=== PATIENT | female | born 1965 | race Caucasian/White ===

== ENCOUNTER 2020-09-13 00:25 | Inpatient (IN) | payer OTHER, SELFPAY ==
[2020-09-13] VITALS (8 sets, daily range): BP systolic 104–195; BP diastolic 60–120; PULSE 64–120; RESP 16–46; TEMP -17.7–37; O2SAT 88–98; BMI 26.2; BMI 27.2
[2020-09-13] MEDS: Magnesium Sulfate/H2O 2 GM/50 ML PIGGYBACK IV (00:30)
--- NOTE | 2020-09-13 00:30 | ECG_ITS ---
Test Reason : SOB Blood Pressure : / mmHG Vent. Rate : 094 BPM Atrial Rate : 094 BPM P-R Int : 144 ms QRS Dur : 082 ms QT Int : 386 ms P-R-T Axes : 078 048 064 degrees QTc Int : 482 ms Normal sinus rhythm Low voltage QRS Nonspecific ST abnormality Abnormal ECG When compared with ECG of 05-APR-2020 23:53, T wave amplitude has decreased in Inferior leads T wave amplitude has decreased in Anterolateral leads ST now depressed in Anterolateral leads Referred By: Nelly Clifton Electronically Signed By:SAPNA HOLLEY MD
--- NOTE | 2020-09-13 00:31 | XR_ITS ---
EXAMINATION: XR CHEST CLINICAL INFORMATION: Dyspnea COMPARISON: 04/05/2020 TECHNIQUE: Frontal view of the chest was obtained. FINDINGS: Cardiac leads overlie the chest. The lungs are well expanded. Bronchial wall thickening noted. There is no focal consolidation, edema, or effusion. No pneumothorax. The cardiomediastinal silhouette is within normal limits. No acute osseous abnormality. XR/XR chest 1V IMPRESSION: No consolidation. Bronchial wall thickening can be seen with a small airways process such as asthma or atypical/viral infection.
[2020-09-13] MEDS: Ketamine HCl/NS 50 MG/5 ML SYRINGE 25 MG IVPUSH (00:40)
--- NOTE | 2020-09-13 00:47 | ED_ITS ---
HPI - SOB/Dyspnea General Chief Complaint: Dyspnea Stated Complaint: SOB Time Seen by Provider: 09/13/20 00:29 Source: patient and EMS Mode of arrival: EMS History of Present Illness HPI Narrative: 55-year-old female with past medical history of COPD and anxiety, brought in by EMS secondary to shortness of breath. I was present on arrival secondary to extreme short of breath. Patient is limited exam secondary to chief complaint. However patient was able to convey for the past 2 3 days has been having worsening shortness of breath with cough. Denies fevers or chills no current pain. Patient also very anxious EMS states did give patient DuoNeb and Miladysu-Medenrique DOWD MD elicited complaint: anxiety Pertinent past history: COPD Onset (ago): day(s) (2) Severity: severe Known history of: COPD Related Data Home Medications Medication Instructions Recorded Confirmed albuterol sulfate 90 mcg INHALATION NEEDED 09/13/20 09/13/20 furosemide 20 mg PO DAILY@0730 09/13/20 09/13/20 lisinopril 1 tab PO DAILY 09/13/20 09/13/20 metformin 500 mg PO QAM 09/13/20 09/13/20 Allergies Allergy/AdvReac Type Severity Reaction Status Date / Time No Known Allergies Allergy Verified 09/13/20 02:40 [No Known Allergies*] Review of Systems Review of Systems: Yes Other (Unable to fully obtain secondary to respiratory distress) Cardiovascular: Cardiovascular: Reports dyspnea Respiratory: Respiratory: Reports dyspnea [facility] Past Medical History Attestation statement: The following information was validated with the patient. Medical History (Updated 09/13/20 @ 02:45 by Jose Guajardo DO) COPD (chronic obstructive pulmonary disease) Family History Family History (Updated 09/13/20 @ 00:49 by Jose Guajardo DO) Other Family history non-contributory Social History Social History (Updated 09/13/20 @ 00:49 by Jose Guajardo DO) Household Members: Unknown / Unable to assess Advance Directives: No Physical Exam Vital Signs: Vital Signs: Last Vital Signs Temp 98 F 09/13/20 01:26 Pulse 82 09/13/20 02:25 Resp 16 09/13/20 02:25 BP 110/63 09/13/20 02:25 Pulse Ox 95 09/13/20 02:25 Body Mass Index 26.2 Vital signs reviewed. Pulse ox interpreted by me at 97% room air normal Appearance: Alert. Extremely anxious Oriented X3. moderate / severe acute distress. Eyes: Pupils equal, round and reactive to light. ENT: Pharynx normal. Neck: Normal inspection. Neck supple. No lymph nodes noted. No crepitus CVS: Normal heart rate and rhythm. Pulses normal. Normal S1 and S2 Respiratory: Moderate to severe respiratory distress. Breath sounds abnormal. b/l Wheezing. No rales Abdomen: Soft and nontender. No rigidity. No distention. good BS x4 Skin: Skin warm and dry. Normal skin color. Normal skin turgor. Extremities: No lower extremity edema. Neurovascular intact to all extremities. No Lacerations. No Rash Neuro: Oriented X 3. No motor deficit. No sensory deficit. Moving all extermities. No slurred speech. Course Course Course Narrative: Focused exam done at 02:45. Much improved lung sounds. IV antibiotics IV fluids At 02:45 I spoke to hospitalist who accepts patient. Dr. Ascencio Reevaluation(s) Reevaluation #1: Patient re-evaluated Time: 00:52 Time: 01:18 Reevaluation #3: I evaluated the patient now much more calm. Respiratory dis tress has improved Time: 01:36 Additional Reevaluation(s): Much improved MDM - SOB/Dyspnea MDM Narrative Medical decision making narrative: 55-year-old female history of COPD came in for COPD exacerbation meeting sepsis criteria. IV antibiotics IV fluids started much improved with IV steroids, IV magnesium, IV ketamine Differential Diagnosis Differential diagnosis: Likely acute exacerbation of chronic obstructive airways disease (Pneumonia, sepsis, acute coronary syndrome) Lab Data Result diagrams: 09/13/20 00:40 09/13/20 00:40 Labs: Lab Results 09/13/20 09/13/20 09/13/20 Range/Units 00:40 00:40 00:40 WBC 14.3 H (4.8-10.8) X10*3/uL RBC 4.74 (4.20-5.50) X10*6/uL Hgb 14.8 (12.0-16.0) g/dl Hct 44.9 (37-47) % MCV 94.7 (80-98) fL MCH 31.2 (27.0-33.0) pg MCHC 33.0 (31.0-35.0) g/dl RDW 11.6 (11.0-16.0) % Plt Count 236 (160-400) X10*3/uL MPV 11.2 (9.4-12.3) fL Immature Gran % (Auto) 0.3 (0.0-0.4) % Neut % (Auto) 63.4 (45-73) % Lymph % (Auto) 27.6 (20-40) % [place] % (Auto) 7.1 (2-11) % Eos % (Auto) 1.0 (0-4) % Baso % (Auto) 0.6 (0-2) % Lymph # (Auto) 4.0 (1.2-4.9) X10*3/uL [place] # (Auto) 1.0 (0.1-1.2) X10*3/uL Eos # (Auto) 0.1 (0.0-0.4) X10*3/uL Baso # (Auto) 0.1 (0.0-0.2) X10*3/uL Abs Immat Gran (auto) 0.05 H (0.00-0.03) X10*3/uL Absolute Neuts (auto) 9.1 H (2.0-8.3) X10*3/uL Absolute Nucleated RBC 0.000 (0.0-0.012) X10*3/uL Nucleated RBC % (auto) 0.0 (0.0-0.2) /100WBC PT 12.0 (10.8-13.0) SEC INR 1.0 (0.9-1.1) APTT 34.3 (24.1-38.0) SEC VBG pH (7.32-7.43) VBG pCO2 mmhg VBG pO2 mmhg VBG HCO3 mmol/L VBG O2 Saturation % VBG Base Excess mmol/L Sodium 134 L (135-145) mmol/L Potassium 3.7 (3.3-5.1) mmol/l Chloride 93 L (96-108) mmol/L Carbon Dioxide 27 (22-29) mmol/L Anion Gap 18 (12-20) BUN 7 L (9-16) mg/dL Creatinine 0.97 (0.5-1.4) mg/dL Estim Creat Clear Calc 66.5 Estimated GFR 59 Random Glucose 363 H* (60-115) mg/dL Lactic Acid (0.5-2.0) mmol/L Calcium 9.0 (8.4-10.2) mg/dL Magnesium 1.9 (1.6-2.6) mg/dL Ferritin 74 (10-250) ng/mL Total Bilirubin 0.4 (0.0-1.0) mg/dL Direct Bilirubin 0.3 (0.0-0.5) mg/dL AST 20 (5-31) U/L ALT 24 (0-31) U/L Alkaline Phosphatase 77 (39-117) U/L Lactate Dehydrogenase 206 (122-220) U/L Troponin I High Sens (<3.5-17.0) ng/L Total Protein 7.3 (6.5-8.0) g/dL Albumin 4.2 (3.5-5.0) g/dL Procalcitonin 09/13/20 09/13/20 09/13/20 Range/Units 00:40 00:40 00:40 WBC (4.8-10.8) X10*3/uL RBC (4.20-5.50) X10*6/uL Hgb (12.0-16.0) g/dl Hct (37-47) % MCV (80-98) fL MCH (27.0-33.0) pg MCHC (31.0-35.0) g/dl RDW (11.0-16.0) % Plt Count (160-400) X10*3/uL MPV (9.4-12.3) fL Immature Gran % (Auto) (0.0-0.4) % Neut % (Auto) (45-73) % Lymph % (Auto) (20-40) % [place] % (Auto) (2-11) % Eos % (Auto) (0-4) % Baso % (Auto) (0-2) % Lymph # (Auto) (1.2-4.9) X10*3/uL [place] # (Auto) (0.1-1.2) X10*3/uL Eos # (Auto) (0.0-0.4) X10*3/uL Baso # (Auto) (0.0-0.2) X10*3/uL Abs Immat Gran (auto) (0.00-0.03) X10*3/uL Absolute Neuts (auto) (2.0-8.3) X10*3/uL Absolute Nucleated RBC (0.0-0.012) X10*3/uL Nucleated RBC % (auto) (0.0-0.2) /100WBC PT (10.8-13.0) SEC INR (0.9-1.1) APTT (24.1-38.0) SEC VBG pH (7.32-7.43) VBG pCO2 mmhg VBG pO2 mmhg VBG HCO3 mmol/L VBG O2 Saturation % VBG Base Excess mmol/L Sodium (135-145) mmol/L Potassium (3.3-5.1) mmol/l Chloride (96-108) mmol/L Carbon Dioxide (22-29) mmol/L Anion Gap (12-20) BUN (9-16) mg/dL Creatinine (0.5-1.4) mg/dL Estim Creat Clear Calc Estimated GFR Random Glucose (60-115) mg/dL Lactic Acid 3.0 H* (0.5-2.0) mmol/L Calcium (8.4-10.2) mg/dL Magnesium Cancelled (1.6-2.6) mg/dL Ferritin Cancelled (10-250) ng/mL Total Bilirubin Cancelled (0.0-1.0) mg/dL Direct Bilirubin Cancelled (0.0-0.5) mg/dL AST Cancelled (5-31) U/L ALT Cancelled (0-31) U/L Alkaline Phosphatase Cancelled (39-117) U/L Lactate Dehydrogenase (122-220) U/L Troponin I High Sens 13.7 (<3.5-17.0) ng/L Total Protein Cancelled (6.5-8.0) g/dL Albumin Cancelled (3.5-5.0) g/dL Procalcitonin 09/13/20 09/13/20 Range/Units 00:40 00:40 WBC (4.8-10.8) X10*3/uL RBC (4.20-5.50) X10*6/uL Hgb (12.0-16.0) g/dl Hct (37-47) % MCV (80-98) fL MCH (27.0-33.0) pg MCHC (31.0-35.0) g/dl RDW (11.0-16.0) % Plt Count (160-400) X10*3/uL MPV (9.4-12.3) fL Immature Gran % (Auto) (0.0-0.4) % Neut % (Auto) (45-73) % Lymph % (Auto) (20-40) % [place] % (Auto) (2-11) % Eos % (Auto) (0-4) % Baso % (Auto) (0-2) % Lymph # (Auto) (1.2-4.9) X10*3/uL [place] # (Auto) (0.1-1.2) X10*3/uL Eos # (Auto) (0.0-0.4) X10*3/uL Baso # (Auto) (0.0-0.2) X10*3/uL Abs Immat Gran (auto) (0.00-0.03) X10*3/uL Absolute Neuts (auto) (2.0-8.3) X10*3/uL Absolute Nucleated RBC (0.0-0.012) X10*3/uL Nucleated RBC % (auto) (0.0-0.2) /100WBC PT (10.8-13.0) SEC INR (0.9-1.1) APTT (24.1-38.0) SEC VBG pH 7.30 L (7.32-7.43) VBG pCO2 55 mmhg VBG pO2 72 mmhg VBG HCO3 26 mmol/L VBG O2 Saturation 92.4 % VBG Base Excess -1.2 mmol/L Sodium (135-145) mmol/L Potassium (3.3-5.1) mmol/l Chloride (96-108) mmol/L Carbon Dioxide (22-29) mmol/L Anion Gap (12-20) BUN (9-16) mg/dL Creatinine (0.5-1.4) mg/dL Estim Creat Clear Calc Estimated GFR Random Glucose (60-115) mg/dL Lactic Acid (0.5-2.0) mmol/L Calcium (8.4-10.2) mg/dL Magnesium (1.6-2.6) mg/dL Ferritin (10-250) ng/mL Total Bilirubin (0.0-1.0) mg/dL Direct Bilirubin (0.0-0.5) mg/dL AST (5-31) U/L ALT (0-31) U/L Alkaline Phosphatase (39-117) U/L Lactate Dehydrogenase (122-220) U/L Troponin I High Sens (<3.5-17.0) ng/L Total Protein (6.5-8.0) g/dL Albumin (3.5-5.0) g/dL Procalcitonin Cancelled Critical Care Time Critical Care Time Critical Care Time: Yes Total Critical Care Time: 35 Attestation: I attest to my time of critical care Discharge Plan Discharge Clinical Impression: Acute exacerbation of chronic obstructive airways disease Sepsis Qualifiers: Sepsis type: sepsis due to unspecified organism Sepsis acute organ dysfunction status: unspecified Qualified Code(s): A41.9 - Sepsis, unspecified organism Patient Disposition: Admitted As Inpatient
[2020-09-13] MEDS: ondansetron HCL 4 MG/2 ML VIAL IVPUSH (00:59)
[2020-09-13 01:01] LABS: Basophils Absolute Auto 0.1 X10*3/uL (0.0-0.2); Basophils Percent Auto 0.6 % (0-2); Eosinophils Absolute Auto 0.1 X10*3/uL (0.0-0.4); Hematocrit 44.9 % (37-47); Hemoglobin 14.8 g/dl (12.0-16.0); Imm Gran Abs Auto 0.05 X10*3/uL (0.00-0.03); Imm Gran Pct Auto 0.3 % (0.0-0.4); Lymphocytes Percent Auto 27.6 % (20-40); MANUAL DIFF FLAG NO; Mean Corpuscular Hemoglobin 31.2 pg (27.0-33.0); Mean Corpuscular Volume 94.7 fL (80-98); Mean Platelet Volume 11.2 fL (9.4-12.3); Monocytes Percent Auto 7.1 % (2-11); Neutrophils Absolute Auto 9.1 X10*3/uL (2.0-8.3); Neutrophils Percent Auto 63.4 % (45-73); Platelet Count 236 X10*3/uL (160-400); Red Blood Count 4.74 X10*6/uL (4.20-5.50); Red Cell Distribution Width 11.6 % (11.0-16.0); White Blood Count 14.3 X10*3/uL (4.8-10.8)
--- NOTE | 2020-09-13 01:05 | PC.NURSE ---
XRay at bedside.
[2020-09-13 01:11] LABS: Partial Thromboplastin Time 34.3 SEC (24.1-38.0)
--- NOTE | 2020-09-13 01:15 | PC.NURSE ---
EKG obtained by this RN. Pt resting comfortably in bed, speaking full sentences, reports great improvement in SOB. Pt explains that she is from home with family, does not wear oxygen at home. Pt reports a COPD history, states she is still smoking cigarettes, reports smoking 1-2 packs/day. Pt reports a chronic cough, denies recent infection/fever. Pt explains that she was feeling poorly the last few days with persistent nausea, some episodes of vomiting/diarrhea, denies abdominal pain. Pt states that this evening, she went to lay down when she suddenly had an attack and was unable to catch her breath. Pt used her inhalers with no relief, attempted to go outside in the cool air with no relief. Family calling EMS. Pt denies any sick contacts, states she has been staying home mostly. Upon arrival, pt tripoding, tachypneic, extremely flushed, diaphoretic, speaking sentence fragments stating I....can't...breathe! Pt medicated by EMS with a Duoneb and 120 of Solumedrol. Upon arrival, pt medicated with Mag and Ketamine, placed on an UPD by RT. semiconductor development technician at bedside obtaining labs. Pt now reporting increased stress at home, states she asked her of 20+ years for a divorce. Denies pain. VSS. Awaiting lab results and CXR results. Continue to monitor.
[2020-09-13 01:43] LABS: Base Excess VBG -1.2 mmol/L; HCO3 VBG 26 mmol/L; Oxygen Saturation VBG 92.4 %; PCO2 VBG 55 mmhg; PO2 VBG 72 mmhg
--- NOTE | 2020-09-13 01:47 | PC.NURSE ---
Pt ambulating to the bathroom with a loaiza/steady gait. Urine sample obtained. Gabriele polo per EMAR. Pt requesting a pillow/socks, assisted into POC, states she is extremely tired and wants to sleep. Lights dim for comfort. Continue to monitor.
[2020-09-13] MEDS: cefTRIAXone sodium 1 GM in 0.9 % Sodium Chloride 50 ML IV (01:49)
[2020-09-13 01:50] LABS: Troponin-I High Sensitivity 13.7 ng/L (<3.5-17.0)
[2020-09-13] MEDS: SODIUM CHLORIDE 2214 ML IVCONT (02:15)
--- NOTE | 2020-09-13 02:19 | PC.NURSE ---
Pt resting in bed. IVF infusing per EMAR. Continue to monitor.
--- NOTE | 2020-09-13 02:23 | PC.NURSE ---
This RN calling lab regarding pending chemistries for almost 2 hours. Per lab, they are having a problem posting results, per lab she is going to run specimen again to get results and/or send up a report with the results.
[2020-09-13 02:25] LABS: Alanine Aminotransferase 24 U/L (0-31); Albumin Level 4.2 g/dL (3.5-5.0); Alkaline Phosphatase 77 U/L (39-117); Anion Gap 18 (12-20); Aspartate Amino Transferase 20 U/L (5-31); Bilirubin Direct 0.3 mg/dL (0.0-0.5); Bilirubin Total 0.4 mg/dL (0.0-1.0); Blood Urea Nitrogen 7 mg/dL (9-16); Carbon Dioxide 27 mmol/L (22-29); Chloride 93 mmol/L (96-108); Creatinine Clr Calc Pharmacy 66.5; Estimated Glomerular Filt Rate 59; Ferritin 74 ng/mL (10-250); Glucose Random 363 mg/dL (60-115); Lactate Dehydrogenase 206 U/L (122-220); Magnesium 1.9 mg/dL (1.6-2.6); Potassium 3.7 mmol/l (3.3-5.1); Sodium 134 mmol/L (135-145); Total Protein 7.3 g/dL (6.5-8.0)
--- NOTE | 2020-09-13 02:38 | PC.NURSE ---
MD at bedside for eval. Covid swab obtained and sent. Pt agreeable to plan for admission.
--- NOTE | 2020-09-13 02:44 | PC.NURSE ---
Med Rec completed with pt at bedside.
--- NOTE | 2020-09-13 02:56 | PC.NURSE ---
This RN calling Shaun to update on pt condition and plan for admission.
[2020-09-13 03:06] LABS: Procalcitonin < 0.02 ng/mL
[2020-09-13 03:11] LABS: Reflex Lactate? Lactic Acid Added
[2020-09-13 03:36] LABS: Influenza A PCR NEGATIVE (Negative); Influenza B PCR NEGATIVE (Negative); Resp Syncy Virus RNA Qual PCR NEGATIVE (Negative); SARS COV2 PCR INHOUSE NEGATIVE (Negative)
--- NOTE | 2020-09-13 03:51 | PC.NURSE ---
Repeat lactic obtained and sent. VSS.
[2020-09-13 04:16] LABS: B Type Natriuretic Peptide 35 pg/mL (<100)
[2020-09-13 04:23] LABS: ~Lactic Acid-LAB USE ONLY 1.2 mmol/L (0.5-2.0)
--- NOTE | 2020-09-13 04:24 | P.HPHOSP_ITS ---
History of Present Illness Date of Service: 09/13/20 <Jeny Ascencio MD - Last Filed: 09/13/20 05:08> Chief Complaint: shortness of breath <Jeny Ascencio MD - Last Filed: 09/13/20 05:08> this is a 55-year-old female with past medical history of COPD, bladder cancer, bipolar who presents to the hospital with complaints of shortness of breath. Patient reports that she has been having shortness of breath for few weeks now but worsened today. She also has increased cough and sputum production. She feels feverish with some chills, no chest pain, no sick contacts, no recent travel. No palpitations. She has nausea and had 1 episode of vomiting 2 days ago but has not had any recurrence. She has diarrhea also for few days, nonbloody, watery. No swelling of extremities, no orthopnea PND. No urinary symptoms. On arrival to the ED patient had a pulse rate of 120, respiratory rate of 46, blood pressure 195/120, starting 97% on non-rebreather currently on nasal cannula 2 L satting 95%. Labs are significant for WBC count of 14.3, pH of 7.3, pCO2 of 55, lactic acid of 3.0, COVID19 negative chest x-ray shows bronchial thickening suggestive of a small airway process such as asthma or atypical / viral infection past medical history: COPD, bladder cancer status post tumor resection, bipol ar, diabetes, hypertension surgical history: Bladder surgery family history: lost her mother to suicide social history: Comes from home, smokes 1 and half pack per day, denies alcohol or illicit drugs <Jeny Ascencio MD - Last Filed: 09/13/20 05:08> Review of Systems Review of Systems: Yes all other systems are reviewed and are negative <Jeny Ascencio MD - Last Filed: 09/13/20 05:08> [facility] Medical History: Medical History COPD (chronic obstructive pulmonary disease) Diabetes mellitus type 2 in obese Hypertension <Jeny Ascencio MD - Last Filed: 09/13/20 05:08> Family History: Family History Other Family history non-contributory <Jeny Ascencio MD - Last Filed: 09/13/20 05:08> Social History: Social History Household Members: Spouse Housing: Apartment Smoking Status: Current every day smoker Tobacco Type: Cigarette Smoked in Last 30 Days: Yes Patient Interested in Nicotine Replacement: No Patient Given Instructions on How to Stop Smoking: Yes Date Education Initiated: 09/13/20 Use of substances other than those prescribed or required for medical reasons: No Currently Displaying Signs/Symptoms of Drug Intoxication Withdrawal: No Have you been hit, kicked, punched, or otherwise hurt by someone within the past year? If so, by whom?: No Do you feel safe in your current relationship?: Yes Is there a partner from a previous relationship who is making you feel unsafe now?: No Are you made to feel afraid or neglected: No Advance Directives: No Do you have thoughts of harming others: None Do you have a plan to hurt others: No Plan Recently lost weight without trying: No service: No Current occupational status: disabled <Jeny Ascencio MD - Last Filed: 09/13/20 05:08> Meds Allergies/Adverse reactions: Allergies Allergy/AdvReac Type Severity Reaction Status Date / Time No Known Allergies Allergy Verified 09/13/20 02:40 [No Known Allergies*] <Jeny Ascencio MD - Last Filed: 09/13/20 05:08> Home medications: Home Medications Medication Instructions Recorded Confirmed Type albuterol sulfate [ProAir HFA] 2 inh INHALATION Q4H PRN 09/13/20 09/13/20 Hi story furosemide 20 mg PO DAILY@0730 09/13/20 09/13/20 History lisinopril 1 tab PO DAILY 09/13/20 09/13/20 History metformin 500 mg PO QAM 09/13/20 09/13/20 History <Jeny Ascencio MD - Last Filed: 09/13/20 05:08> Physical Exam Vital Signs and Narrative: Vital Signs: Last Vital Signs Temp 98 F 09/13/20 01:26 Pulse 82 09/13/20 02:25 Resp 16 09/13/20 02:25 BP 110/63 09/13/20 02:25 Pulse Ox 95 09/13/20 02:25 Body Mass Index 26.2 <Jeny Ascencio MD - Last Filed: 09/13/20 05:08> Const: General: cooperative and no acute distress <Jeny Ascencio MD - Last Filed: 09/13/20 05:08> Orientation/consciousness: patient oriented x3 <Jeny Ascencio MD - Last Filed: 09/13/20 05:08> Eyes: General: appearance normal, both eyes and all related structures <Jeny Ascencio MD - Last Filed: 09/13/20 05:08> Pupils: Equal, round and reactive pupils present <Jeny Ascencio MD - Last Filed: 09/13/20 05:08> Resp: Effort & Inspection: normal respiratory effort and able to speak in complete sentences <Jeny Ascencio MD - Last Filed: 09/13/20 05:08> Auscultation: rhonchi <Jeny Ascencio MD - Last Filed: 09/13/20 05:08> Cardio: Rate: regular rate <Jeny Ascencio MD - Last Filed: 09/13/20 05:08> Rhythm: regular rhythm <Jeny Ascencio MD - Last Filed: 09/13/20 05:08> GI: Palpation (GI): Soft to palpation <Jeny Ascencio MD - Last Filed: 09/13/20 05:08> Auscultation: normal bowel sounds <Jeny Ascencio MD - Last Filed: 09/13/20 05:08> Skin: General skin exam: no rashes or lesions noted <Jeny Ascencio MD - Last Filed: 09/13/20 05:08> Neuro: General: patient oriented x3 <Jeny Ascencio MD - Last Filed: 09/13/20 05:08> Cranial nerves: Yes Equal, round and reactive pupils present <Jeny Ascencio MD - Last Filed: 09/13/20 05:08> Cognition (Neuro): normal cognition <Jeny Ascencio MD - Last Filed: 09/13/20 05:08> Extrem: General: Yes normal to inspection and Yes no pedal edema <Jeny Ascencio MD - Last Filed: 09/13/20 05:08> Results Labs CBC and Chem 7: : 09/13/20 00:40 09/13/20 00:40 <Jeny Ascencio MD - Last Filed: 09/13/20 05:08> Labs: Laboratory Results - last 24 hr 09/13/20 09/13/20 09/13/20 00:40 00:40 00:40 MCV 94.7 MCH 31.2 MCHC 33.0 RDW 11.6 Plt Count 236 MPV 11.2 Immature Gran % (Auto) 0.3 Neut % (Auto) 63.4 Lymph % (Auto) 27.6 [place] % (Auto) 7.1 Eos % (Auto) 1.0 Baso % (Auto) 0.6 Lymph # (Auto) 4.0 [place] # (Auto) 1.0 Eos # (Auto) 0.1 Baso # (Auto) 0.1 Abs Immat Gran (auto) 0.05 H Absolute Neuts (auto) 9.1 H Absolute Nucleated RBC 0.000 Nucleated RBC % (auto) 0.0 PT 12.0 INR 1.0 APTT 34.3 VBG pH VBG pCO2 VBG pO2 VBG HCO3 VBG O2 Saturation VBG Base Excess Anion Gap 18 Estim Creat Clear Calc 66.5 Estimated GFR 59 Random Glucose 363 H* Lactic Acid Lactic Acid Fup @ 2Hr Calcium 9.0 Magnesium 1.9 Ferritin 74 Total Bilirubin 0.4 Direct Bilirubin 0.3 AST 20 ALT 24 Alkaline Phosphatase 77 Lactate Dehydrogenase 206 Troponin I High Sens B-Natriuretic Peptide Total Protein 7.3 Albumin 4.2 Procalcitonin Coronavirus (PCR) Influenza Type A (PCR) Influenza Type B (PCR) RSV RNA Qual (PCR) 09/13/20 09/13/20 09/13/20 00:40 00:40 00:40 MCV MCH MCHC RDW Plt Count MPV Immature Gran % (Auto) Neut % (Auto) Lymph % (Auto) [place] % (Auto) Eos % (Auto) Baso % (Auto) Lymph # (Auto) [place] # (Auto) Eos # (Auto) Baso # (Auto) Abs Immat Gran (auto) Absolute Neuts (auto) Absolute Nucleated RBC Nucleated RBC % (auto) PT INR APTT VBG pH VBG pCO2 VBG pO2 VBG HCO3 VBG O2 Saturation VBG Base Excess Anion Gap Estim Creat Clear Calc Estimated GFR Random Glucose Lactic Acid 3.0 H* Lactic Acid Fup @ 2Hr Calcium Magnesium Cancelled Ferritin Cancelled Total Bilirubin Cancelled Direct Bilirubin Cancelled AST Cancelled ALT Cancelled Alkaline Phosphatase Cancelled Lactate Dehydrogenase Troponin I High Sens 13.7 B-Natriuretic Peptide Total Protein Cancelled Albumin Cancelled Procalcitonin Coronavirus (PCR) Influenza Type A (PCR) Influenza Type B (PCR) RSV RNA Qual (PCR) 09/13/20 09/13/20 09/13/20 00:40 00:40 00:40 MCV MCH MCHC RDW Plt Count MPV Immature Gran % (Auto) Neut % (Auto) Lymph % (Auto) [place] % (Auto) Eos % (Auto) Baso % (Auto) Lymph # (Auto) [place] # (Auto) Eos # (Auto) Baso # (Auto) Abs Immat Gran (auto) Absolute Neuts (auto) Absolute Nucleated RBC Nucleated RBC % (auto) PT INR APTT VBG pH 7.30 L VBG pCO2 55 VBG pO2 72 VBG HCO3 26 VBG O2 Saturation 92.4 VBG Base Excess -1.2 Anion Gap Estim Creat Clear Calc Estimated GFR Random Glucose Lactic Acid Lactic Acid Fup @ 2Hr Calcium Magnesium Ferritin Total Bilirubin Direct Bilirubin AST ALT Alkaline Phosphatase Lactate Dehydrogenase Troponin I High Sens B-Natriuretic Peptide Total Protein Albumin Procalcitonin Cancelled < 0.02 Coronavirus (PCR) Influenza Type A (PCR) Influenza Type B (PCR) RSV RNA Qual (PCR) 09/13/20 09/13/20 09/13/20 00:40 02:37 03:51 MCV MCH MCHC RDW Plt Count MPV Immature Gran % (Auto) Neut % (Auto) Lymph % (Auto) [place] % (Auto) Eos % (Auto) Baso % (Auto) Lymph # (Auto) [place] # (Auto) Eos # (Auto) Baso # (Auto) Abs Immat Gran (auto) Absolute Neuts (auto) Absolute Nucleated RBC Nucleated RBC % (auto) PT INR APTT VBG pH VBG pCO2 VBG pO2 VBG HCO3 VBG O2 Saturation VBG Base Excess Anion Gap Estim Creat Clear Calc Estimated GFR Random Glucose Lactic Acid Lactic Acid Fup @ 2Hr 1.2 Calcium Magnesium Ferritin Total Bilirubin Direct Bilirubin AST ALT Alkaline Phosphatase Lactate Dehydrogenase Troponin I High Sens B-Natriuretic Peptide 35 Total Protein Albumin Procalcitonin Coronavirus (PCR) NEGATIVE Influenza Type A (PCR) NEGATIVE Influenza Type B (PCR) NEGATIVE RSV RNA Qual (PCR) NEGATIVE <Jeny Ascencio MD - Last Filed: 09/13/20 05:08> Imaging Radiologist's Impressions: Impressions Chest X-Ray 09/13/20 00:31 IMPRESSION: No consolidation. Bronchial wall thickening can be seen with a small airways process such as asthma or atypical/viral infection. <Jeny Ascencio MD - Last Filed: 09/13/20 05:08> Assessment and Plan (1) Hypoxia: Status: Acute <Jeyn Ascencio MD - Last Filed: 09/13/20 05:08> (2) Sepsis: Qualifiers: Sepsis acute organ dysfunction status: unspecified Sepsis type: sepsis due to unspecified organism Qualified Code(s): A41.9 - Sepsis, unspecified organism <Jeny Ascencio MD - Last Filed: 09/13/20 05:08> Status: Acute <Jeny Ascencio MD - Last Filed: 09/13/20 05:08> (3) Acute exacerbation of chronic obstructive airways disease: Status: Acute <Jeny Ascencio MD - Last Filed: 09/13/20 05:08> (4) Diabetes mellitus type 2 in obese: Status: Acute <Jeny Ascencio MD - Last Filed: 09/13/20 05:08> (5) Hypertension: Status: Acute <Jeny Ascencio MD - Last Filed: 09/13/20 05:08> (6) Lactic acidosis: Status: Acute <Jeny Ascencio MD - Last Filed: 09/13/20 05:08> this is a 55-year-old female who presents to the hospital with COPD exacerbation # acute hypoxic respiratory failure - currently using 2 L of oxygen to maintain sats above 90 - secondary to COPD exacerbation with no evidence of pneumonia - COVID-19 negative Plan: - Treat COPD as below - O2 supplement - titrate O2 as tolerated # sepsis - secondary to COPD - tachycardic, tachypneic, leukocytosis plan: - will start her on levofloxacin for COPD exacerbation - follow blood cultures # COPD exacerbation - dyspnea, increased cough and increased sputum production - afebrile, has leukocytosis, chest x-ray demonstrating possible viral infection, COVID negative plan: - Will start on Solu-Medrol 40 IV b.i.d., DuoNeb q.i.d. and p.r.n. # hypertension - stable - continue lisinopril # diabetes - on metformin - will start on low-dose sliding scale insulin - diabetic diet DVT prophylaxis: Lovenox <Jeny Ascencio MD - Last Filed: 09/13/20 05:08>
--- NOTE | 2020-09-13 04:32 | PC.NURSE ---
This RN calling med/surg to give report, RN unable to take report at this time.
--- NOTE | 2020-09-13 04:54 | PC.NURSE ---
Report given to M/S RN.
[2020-09-13 05:07] LABS: Base Excess VBG -3.9 mmol/L; HCO3 VBG 23 mmol/L; Oxygen Saturation VBG 94.1 %; PCO2 VBG 51 mmhg; PO2 VBG 76 mmhg; pH VBG 7.28 (7.32-7.43)
[2020-09-13 05:42] LABS: Glucose, Whole Blood 380 mg/dL (60-115)
[2020-09-13] MEDS: Lactated Ringers 1,000 ML 100 ML IVCONT (06:04)
[2020-09-13] MEDS: levoFLOXacin/D5W 750 MG/150 ML PIGGYBACK 100 MG IV (06:05)
[2020-09-13] MEDS: Insulin Lispro 100 UNIT/ML 3 ML VIAL SUBCUT ×2 (06:08→12:26)
[2020-09-13] MEDS: Enoxaparin Sodium 40 MG/0.4 ML SYRINGE SUBCUT (06:11)
[2020-09-13] MEDS: Furosemide 20 MG TABLET PO (08:07)
[2020-09-13] MEDS: lisinopriL 2.5 MG TABLET PO (08:07)
[2020-09-13] MEDS: 0.9 % Sodium Chloride Flush 3 ML SYRINGE IVFLUSH (08:08)
[2020-09-13] MEDS: Albuterol/Iprat 2.5/0.5MG 3 ML AMPUL.NEB INHALE (08:42)
[2020-09-13] MEDS: clonazePAM 0.5 MG TABLET PO (10:05)
--- NOTE | 2020-09-13 10:17 | P.DS_ITS ---
DS: Providers Provider Date of admission: 09/13/20 03:54 Primary care physician: Unknown Physician DS: Diagnosis Discharge Diagnosis (1) Hypoxia: Status: Acute (2) Sepsis: Status: Acute (3) Acute exacerbation of chronic obstructive airways disease: Status: Acute (4) Diabetes mellitus type 2 in obese: Status: Acute (5) Hypertension: Status: Acute (6) Lactic acidosis: Status: Acute DS: Medications Discharge Medications Home Medications: Home Medications Medication Instructions Recorded Confirmed albuterol sulfate [ProAir HFA] 2 inh INHALATION Q4H PRN 09/13/20 09/13/20 furosemide 20 mg PO DAILY@0730 09/13/20 09/13/20 lisinopril 1 tab PO DAILY 09/13/20 09/13/20 metformin 500 mg PO QAM 09/13/20 09/13/20 Previous Rx's Medication Instructions Recorded prednisone 40 mg PO DAILY #10 tab 09/13/20 DS: Summary Hospital Course Hospital Course: Patient was admitted for acute hypoxic respiratory failure secondary to COPD exacerbation meeting SIRS criteria. She was given steroids and bronchodilators. Patient felt much better by the next day and was able to be weaned off oxygen. She will be discharged home to complete 5 more days of prednisone. Time Spent with Patient Time attestation: Total time spent providing and/or coordinating discharge services: Physical Exam Vital Signs: Vital Signs: Last Vital Signs Temp 97.8 F 09/13/20 07:39 Pulse 81 09/13/20 08:45 Resp 16 09/13/20 07:39 BP 188/87 H 09/13/20 07:39 Pulse Ox 97 09/13/20 07:39 Body Mass Index 27.2 General: AO X 3, no acute distress Resp: diminished CVS: S1,S2,RRR GI: soft, non tender, non distended Neuro: motor grossly intact Psych: appropriate affect DS: Data Data Completed and Pending Labs on day of discharge: 09/13/20 00:29 Magnesium Sulfate/H2O 2 gm in 50 ml IV ONCE 09/13/20 00:30 EKG Documentation DIRECTED 09/13/20 00:31 XR chest 1V Stat Magnesium Sulfate/H2O 2 gm in 50 ml IV As directed 09/13/20 00:33 Ketamine HCl/NS 25 mg IVPUSH ONCE ONE 09/13/20 00:40 B Type Natriuretic Peptide Stat Basic Metabolic Panel Stat Complete Blood Count Auto Diff Stat Ferritin Stat Lactate Dehydrogenase Stat Lactic Acid Stat Liver Panel Stat Magnesium Stat Partial Thromboplastin Time Stat Procalcitonin Stat Prothrombin Time INR Stat Troponin-I High Sensitivity Stat Venous Blood Gas Stat 09/13/20 00:53 ondansetron HCL [Zofran] 4 mg IVPUSH ONCE ONE 09/13/20 00:58 ondansetron HCL [Zofran] 4 mg .ROUTE .STK-MED ONE 09/13/20 01:33 cefTRIAXone sodium [Rocephin] 1 gm 0.9 % Sodium Chloride [Ns] 50 ml IV ONCE 09/13/20 01:37 cefTRIAXone sodium [Rocephin] 1 gm .ROUTE .STK-MED ONE 09/13/20 01:54 0.9 % Sodium Chloride [Ns] 2,214 ml IVCONT 2,214 mls/hr 09/13/20 02:37 SARS-CoV2/FLU/RSV Stat 09/13/20 03:51 ~Lactic Acid-LAB USE ONLY Stat 09/13/20 03:52 Transfer Order Routine 09/13/20 03:55 Add Laboratory Test Stat 09/13/20 04:44 Venous Blood Gas Stat 09/13/20 04:58 Insulin Regular, Human [Humulin R] 10 unit SUBCUT ONCE ONE 09/13/20 05:15 Lactated Ringers [Lr] 1,000 ml IVCONT 100 mls/hr 09/13/20 05:37 Glucose, Whole Blood Routine 09/13/20 09:46 clonazePAM [KlonoPIN] 0.5 mg PO ONCE ONE Laboratory Last Values WBC 14.3 X10*3/uL (4.8-10.8) H 09/13/20 00:40 RBC 4.74 X10*6/uL (4.20-5.50) 09/13/20 00:40 Hgb 14.8 g/dl (12.0-16.0) 09/13/20 00:40 Hct 44.9 % (37-47) 09/13/20 00:40 MCV 94.7 fL (80-98) 09/13/20 00:40 MCH 31.2 pg (27.0-33.0) 09/13/20 00:40 MCHC 33.0 g/dl (31.0-35.0) 09/13/20 00:40 RDW 11.6 % (11.0-16.0) 09/13/20 00:40 Plt Count 236 X10*3/uL (160-400) 09/13/20 00:40 MPV 11.2 fL (9.4-12.3) 09/13/20 00:40 Immature Gran % (Auto) 0.3 % (0.0-0.4) 09/13/20 00:40 Neut % (Auto) 63.4 % (45-73) 09/13/20 00:40 Lymph % (Auto) 27.6 % (20-40) 09/13/20 00:40 [place] % (Auto) 7.1 % (2-11) 09/13/20 00:40 Eos % (Auto) 1.0 % (0-4) 09/13/20 00:40 Baso % (Auto) 0.6 % (0-2) 09/13/20 00:40 Lymph # (Auto) 4.0 X10*3/uL (1.2-4.9) 09/13/20 00:40 [place] # (Auto) 1.0 X10*3/uL (0.1-1.2) 09/13/20 00:40 Eos # (Auto) 0.1 X10*3/uL (0.0-0.4) 09/13/20 00:40 Baso # (Auto) 0.1 X10*3/uL (0.0-0.2) 09/13/20 00:40 Abs Immat Gran (auto) 0.05 X10*3/uL (0.00-0.03) H 09/13/20 00:40 Absolute Neuts (auto) 9.1 X10*3/uL (2.0-8.3) H 09/13/20 00:40 Absolute Nucleated RBC 0.000 X10*3/uL (0.0-0.012) 09/13/20 00:40 Nucleated RBC % (auto) 0.0 /100WBC (0.0-0.2) 09/13/20 00:40 PT 12.0 SEC (10.8-13.0) 09/13/20 00:40 INR 1.0 (0.9-1.1) 09/13/20 00:40 APTT 34.3 SEC (24.1-38.0) 09/13/20 00:40 VBG pH 7.28 (7.32-7.43) L 09/13/20 04:44 VBG pCO2 51 mmhg 09/13/20 04:44 VBG pO2 76 mmhg 09/13/20 04:44 VBG HCO3 23 mmol/L 09/13/20 04:44 VBG O2 Saturation 94.1 % 09/13/20 04:44 VBG Base Excess -3.9 mmol/L 09/13/20 04:44 Sodium 134 mmol/L (135-145) L 09/13/20 00:40 Potassium 3.7 mmol/l (3.3-5.1) 09/13/20 00:40 Chloride 93 mmol/L (96-108) L 09/13/20 00:40 Carbon Dioxide 27 mmol/L (22-29) 09/13/20 00:40 Anion Gap 18 (12-20) 09/13/20 00:40 BUN 7 mg/dL (9-16) L 09/13/20 00:40 Creatinine 0.97 mg/dL (0.5-1.4) 09/13/20 00:40 Estim Creat Clear Calc 66.5 09/13/20 00:40 Estimated GFR 59 09/13/20 00:40 POC Glucose 380 mg/dL (60-115) H* 09/13/20 05:37 Random Glucose 363 mg/dL (60-115) H* 09/13/20 00:40 Lactic Acid 3.0 mmol/L (0.5-2.0) H* 09/13/20 00:40 Lactic Acid Fup @ 2Hr 1.2 mmol/L (0.5-2.0) 09/13/20 03:51 Calcium 9.0 mg/dL (8.4-10.2) 09/13/20 00:40 Magnesium 1.9 mg/dL (1.6-2.6) 09/13/20 00:40 Magnesium Cancelled 09/13/20 00:40 Ferritin 74 ng/mL (10-250) 09/13/20 00:40 Ferritin Cancelled 09/13/20 00:40 Total Bilirubin 0.4 mg/dL (0.0-1.0) 09/13/20 00:40 Total Bilirubin Cancelled 09/13/20 00:40 Direct Bilirubin 0.3 mg/dL (0.0-0.5) 09/13/20 00:40 Direct Bilirubin Cancelled 09/13/20 00:40 AST 20 U/L (5-31) 09/13/20 00:40 AST Cancelled 09/13/20 00:40 ALT 24 U/L (0-31) 09/13/20 00:40 ALT Cancelled 09/13/20 00:40 Alkaline Phosphatase 77 U/L (39-117) 09/13/20 00:40 Alkaline Phosphatase Cancelled 09/13/20 00:40 Lactate Dehydrogenase 206 U/L (122-220) 09/13/20 00:40 Troponin I High Sens 13.7 ng/L (<3.5-17.0) 09/13/20 00:40 B-Natriuretic Peptide 35 pg/mL (<100) 09/13/20 00:40 Total Protein 7.3 g/dL (6.5-8.0) 09/13/20 00:40 Total Protein Cancelled 09/13/20 00:40 Albumin 4.2 g/dL (3.5-5.0) 09/13/20 00:40 Albumin Cancelled 09/13/20 00:40 Procalcitonin < 0.02 ng/mL 09/13/20 00:40 Procalcitonin Cancelled 09/13/20 00:40 Coronavirus (PCR) NEGATIVE (Negative) 09/13/20 02:37 Influenza Type A (PCR) NEGATIVE (Negative) 09/13/20 02:37 Influenza Type B (PCR) NEGATIVE (Negative) 09/13/20 02:37 RSV RNA Qual (PCR) NEGATIVE (Negative) 09/13/20 02:37 Discharge Plan Discharge Patient Disposition: Home, Self-Care Referrals: Physician,Unknown [Primary Care Provider] - Discharge Medications: New prednisone 20 mg tablet 40 mg PO DAILY Qty: 10 RF: 0 Continued metformin 500 mg tablet 500 mg PO QAM RF: 0 furosemide 20 mg tablet 20 mg PO DAILY@0730 RF: 0 albuterol sulfate [ProAir HFA] 90 mcg/actuation HFA aerosol inhaler 2 inh inhalation Q4H PRN (Reason: Shortness Of Breath) RF: 0 lisinopril 2.5 mg tablet 1 tab PO DAILY RF: 0 Discharge Orders: Discharge Order (Routine); Ordered 09/13/20 Ordered By: Roosevelt Hamilton Activity on Discharge: As tolerated Visit Report Forms: Patient Portal Discharge page Care Plan Goals: recovery Health Concerns: copd, anxiety Plan of Treatment: prednisone
[2020-09-13 11:20] LABS: Glucose, Whole Blood 395 mg/dL (60-115)
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
== END 2020-09-13 13:20 | disposition home or self-care (01) | DRG 720 ==
LOC: HO.ED 02:45 → HO.S3 04:08
PROVIDERS: Emergency Medicine; Admitting Provider Internal Medicine; Emergency Provider Emergency Medicine; Visit Provider Internal Medicine
DX: A41.9 Sepsis, unspecified organism (principal); J96.01 Acute respiratory failure with hypoxia; J44.1 Chronic obstructive pulmonary disease with (acute) exacerbation; Z20.828 Contact with and (suspected) exposure to other viral communicable diseases; F31.9 Bipolar disorder, unspecified; I10 Essential (primary) hypertension; E11.9 Type 2 diabetes mellitus without complications; F17.210 Nicotine dependence, cigarettes, uncomplicated; Z71.6 Tobacco abuse counseling; Z85.51 Personal history of malignant neoplasm of bladder; Z79.84 Long term (current) use of oral hypoglycemic drugs; Z79.899 Other long term (current) drug therapy
CPT/HCPCS: 0241U; 36415; 71045; 80048; 80076; 82728; 82803; 82947; 83605; 83615; 83735; 83880; 84145; 84484; 85025; 85610; 85730; 87040; 93005; 94640; 96361; 96365; 96375; 99284; 99291; J0696; J1650; J1956; J2405; J2920; J3475

== ENCOUNTER 2020-12-05 22:06 | Emergency (ER) | payer OTHER, SELFPAY ==
--- NOTE | 2020-12-05 22:20 | ED_ITS ---
HPI - General Adult General Chief complaint: General Medical Stated complaint: OPIATE USE,HYPERGLYCEMIA Time Seen by Provider: 12/05/20 22:11 Source: patient Mode of arrival: EMS Limitations: other (Patient is somnolent secondary to narcotic use) History of Present Illness HPI narrative: 55-year-old female who was brought to the emergency department by ambulance for evaluation of somnolence secondary to narcotic use and elevated glucose. The patient admits to ?sniffing heroin this evening. She states she sniffed 2 bags of heroin. Patient states she does this once or twice a week. Apparently, her was concerned about her somnolence and called an ambulance. Also, it was noted that the patient's point of care glucose was elevated at 299. Patient states that she has missed some doses of her metformin but tries to be compliant with the medications. At the time of presentation she is somnolent but arousable, she is able answer questions without difficulty. She states that she has been eating and drinking well. She denied being ill in any way, she denied fever, chills, chest pain, shortness of breath, nausea, vomiting, abdominal pain, myalgias, arthralgias, loss of sense of taste or smell. She does not report any known COVID-19 exposures. Related Data Home Medications Medication Instructions Recorded Confirmed albuterol sulfate [ProAir HFA] 2 inh INHALATION Q4H PRN 09/13/20 09/13/20 furosemide 20 mg PO DAILY@0730 09/13/20 09/13/20 lisinopril 1 tab PO DAILY 09/13/20 09/13/20 metformin 500 mg PO QAM 09/13/20 09/13/20 Previous Rx's Medication Instructions Recorded prednisone 40 mg PO DAILY #10 tab 09/13/20 Allergies Allergy/AdvReac Type Severity Reaction Status Date / Time No Known Allergies Allergy Verified 09/13/20 02:40 [No Known Allergies*] Review of Systems Review of Systems: Yes all other systems are reviewed and are negative Neurologic: Reports Abnormal speech present [facility] Past Medical History [facility] Narrative: The patient states that she smokes 1-1/2 pack of cigarettes per day for 45 years, he drinks several drinks of alcohol 2 to 3 times a week, she uses intranasal heroin 1 to 2 times a week. She is and lives with her . Medical History COPD (chronic obstructive pulmonary disease) Diabetes mellitus type 2 in obese Hypertension Family History Family History Other Family history non-contributory Social History Social History Household Members: Spouse Housing: Apartment Alcohol intake: current Alcohol intake frequency: 3 or more drinks per day Smoking Status: Never smoker Tobacco Type: Cigarette Use of substances other than those prescribed or required for medical reasons: Yes Substance Use Type: Opiates Substance Use Frequency: Monthly Last Used Substance: Just Prior to Admission Any prior treatment program specific to substance use: No Advance Directives: No service: No Current occupational status: disabled Physical Exam Vital Signs: Vital Signs: Last Vital Signs Temp 98.1 F 12/06/20 01:21 Pulse 63 12/06/20 03:45 Resp 12 12/06/20 03:45 BP 122/87 12/06/20 03:45 Pulse Ox 93 12/06/20 03:45 Body Mass Index 28.8 Const: General: other (Somnolent but arousable female, does not appear to be in distress) Orientation/consciousness: oriented to person and oriented to place Limitations: no limitations HENMT: Head: Yes normal to inspection, Yes normocephalic and Yes atraumatic Ears: external ears normal General nose exam: Normal external nose present Face and sinus: Yes normal facial exam Mouth: Normal oral and palatal mucosa present Throat: Yes posterior oropharynx normal Eyes: Periorbital: periorbital findings normal Eyelids: Yes eyelids normal Conjunctivae: conjunctivae normal Sclerae: sclerae normal Corneas: cor neas normal Pupils: Pinpoint pupils bilaterally Direct Ophthalmoscopy: normal light reflex Neck: Neck: Yes full ROM, Yes no lymphadenopathy, Yes no meningeal signs, Yes trachea midline and Yes supple Chest: Chest palpation & inspection: normal inspection of the chest and normal palpation of entire chest wall Resp: Effort & Inspection: normal respiratory effort and able to speak in complete sentences Auscultation: clear to auscultation bilaterally Cardio: Rate: regular rate Rhythm: regular rhythm Heart sounds: S1 normal heart sound present, S2 normal heart sound present and no murmurs GI: Inspection: Yes normal to inspection Palpation (GI): Soft to palpation, nontender, no guarding, not rigid and No hepatosplenomegaly present : General: Yes no CVA tenderness Back/Spine/Pelvis: Back: no CVA tenderness Cervical Spine: normal cervical lordosis Thoracic/Lumbar Spine: thoracic and lumbar spine normal to inspection Skin: Lesions: no lesions Rashes: no rashes Wounds: no wounds Neuro: General: oriented to person, oriented to place and no meningeal signs Cranial nerves: Yes CN's II-XII intact bilaterally Cognition (Neuro): normal cognition Speech: Abnormal speech present Motor exam (neuro): 5/5 motor strength present throughout Extrem: General: Yes normal to inspection and Yes full ROM Psych: Mental Status: mental status grossly normal Speech and movement: Normal speech and movement present Affect: normal affect Attitude: cooperative Thought process: Normal thought process present Thought content: Normal thought content present Course Course Course Narrative: 55-year-old female who presents emergency department for evaluation of increase I months after using intranasal heroin, is also noted to have elevated point of care glucose of 299. On examination the patient is somnolent but arousable, she is able to give a history without any difficulty. Her exam was otherwise unremarkable except for pinpoint pupils which is consistent with her narcotic use. On the O2 saturation monitor, the patient drops down to 86% secondary to somnolence. She was ordered to be placed on continuous cardiac, O2 saturation monitoring and end-tidal CO2 monitoring. The patient was treated with Narcan 0.4 mg IV. The patient will be observed in the emergency department until she is sober. 0641: The patient is awake and sober. I did offer her crisis counseling to try to get into a drug treatment program but she states that she is not interested at this time. I did offer the patient intranasal Narcan to take home but she states she has multiple doses at home and does not need any more. I did discuss how to use opiates safely and make sure that there is someone who was not using that can call 911 and give her Narcan in the event that she becomes unresponsive. Medical Decision Making Lab Data Result diagrams: 12/06/20 00:40 12/06/20 00:40 Labs: Lab Results 12/06/20 12/06/20 12/06/20 Range/Units 00:40 00:40 00:40 WBC 13.4 H (4.8-10.8) X10*3/uL RBC 4.14 L (4.20-5.50) X10*6/uL Hgb 13.1 (12.0-16.0) g/dl Hct 39.3 (37-47) % MCV 94.9 (80-98) fL MCH 31.6 (27.0-33.0) pg MCHC 33.3 (31.0-35.0) g/dl RDW 12.8 (11.0-16.0) % Plt Count 257 (160-400) X10*3/uL MPV 9.7 (9.4-12.3) fL Immature Gran % (Auto) 0.4 (0.0-0.4) % Neut % (Auto) 84.1 H (45-73) % Lymph % (Auto) 11.0 L (20-40) % [place] % (Auto) 3.8 (2-11) % Eos % (Auto) 0.2 (0-4) % Baso % (Auto) 0.5 (0-2) % Lymph # (Auto) 1.5 (1.2-4.9) X10*3/uL [place] # (Auto) 0.5 (0.1-1.2) X10*3/uL Eos # (Auto) 0.0 (0.0-0.4) X10*3/uL Baso # (Auto) 0.1 (0.0-0.2) X10*3/uL Abs Immat Gran (auto) 0.05 H (0.00-0.03) X10*3/uL Absolute Neuts (auto) 11.3 H (2.0-8.3) X10*3/uL Absolute Nucleated RBC 0.000 (0.0-0.012) X10*3/uL Nucleated RBC % (auto) 0.0 (0.0-0.2) /100WBC Sodium 135 (135-145) mmol/L Potassium 4.6 (3.3-5.1) mmol/L Chloride 101 (96-108) mmol/L Carbon Dioxide 23 (22-29) mmol/L Anion Gap 16 (12-20) BUN 7 L (9-16) mg/dL Creatinine 0.73 (0.5-1.4) mg/dL Estim Creat Clear Calc 85.9 Estimated GFR > 60 Random Glucose 203 H D (60-115) mg/dL Calcium 8.3 L D (8.4-10.2) mg/dL Total Bilirubin 0.3 (0.0-1.0) mg/dL AST 8 D (5-31) U/L ALT 10 (0-31) U/L Alkaline Phosphatase 56 D (39-117) U/L Total Protein 6.2 L (6.5-8.0) g/dL Albumin 3.9 (3.5-5.0) g/dL Ethyl Alcohol < 10 mg/dL Discharge Plan Discharge Clinical Impression: Overdose opiate Patient Disposition: Home, Self-Care Instructions: Narcotic Safety (ED), Opioid Use Disorder (ED) Additional Instructions: Please follow the narcotic safety and opiate use disorder handouts. If you are going to continue to use opiates make sure that you have a sober person with you that could monitor to you and give you intranasal Narcan and call 911 if he becomes unresponsive. Follow-up with your doctor in 2 days. Please return to the emergency department if your symptoms get worse or if you develop any symptoms that are concerning to you. Prescriptions: No Action metformin 500 mg tablet 500 mg PO QAM RF: 0 furosemide 20 mg tablet 20 mg PO DAILY@0730 RF: 0 albuterol sulfate [ProAir HFA] 90 mcg/actuation HFA aerosol inhaler 2 inh inhalation Q4H PRN (Reason: Shortness Of Breath) RF: 0 lisinopril 2.5 mg tablet 1 tab PO DAILY RF: 0 prednisone 20 mg tablet 40 mg PO DAILY Qty: 10 RF: 0
[2020-12-05 22:30] VITALS: BP 127/67; PULSE 70; PULSE 71; RESP 12; RESP 16; TEMP 36.2; O2SAT 91; O2SAT 93; BMI 28.8
[2020-12-05] MEDS: Naloxone HCl 0.4 MG/ML VIAL IVPUSH (22:38)
[2020-12-05] MEDS: 0.9 % Sodium Chloride 1,000 ML 999 ML IV (22:40)
[2020-12-05 23:00] VITALS: BP 125/62; PULSE 66; RESP 16; O2SAT 98
--- NOTE | 2020-12-05 23:00 | PC.NURSE ---
PATIENT GIVEN NARCAN PER EMAR, HAVING A POSITIVE EFFECT, PATIENT BECOMING MORE ALERT, IS ORIENTED TO PERSON PLACE AND TIME. PLAN OF CARE FOR LABS AND MONIOTRING.
[2020-12-05 23:30] VITALS: BP 112/57; PULSE 64; RESP 16; O2SAT 95
[2020-12-06] VITALS (8 sets, daily range): BP systolic 110–126; BP diastolic 59–87; PULSE 63–84; RESP 11–16; TEMP 36.7–36.8; O2SAT 93–98
[2020-12-06 00:45] LABS: MANUAL DIFF FLAG NO
[2020-12-06 00:46] LABS: Basophils Absolute Auto 0.1 X10*3/uL (0.0-0.2); Basophils Percent Auto 0.5 % (0-2); Eosinophils Percent Auto 0.2 % (0-4); Hematocrit 39.3 % (37-47); Hemoglobin 13.1 g/dl (12.0-16.0); Imm Gran Abs Auto 0.05 X10*3/uL (0.00-0.03); Imm Gran Pct Auto 0.4 % (0.0-0.4); Lymphocytes Absolute Auto 1.5 X10*3/uL (1.2-4.9); Mean Corpuscular HGB Conc 33.3 g/dl (31.0-35.0); Mean Corpuscular Hemoglobin 31.6 pg (27.0-33.0); Mean Corpuscular Volume 94.9 fL (80-98); Mean Platelet Volume 9.7 fL (9.4-12.3); Monocytes Absolute Auto 0.5 X10*3/uL (0.1-1.2); Monocytes Percent Auto 3.8 % (2-11); Neutrophils Absolute Auto 11.3 X10*3/uL (2.0-8.3); Neutrophils Percent Auto 84.1 % (45-73); Platelet Count 257 X10*3/uL (160-400); Red Blood Count 4.14 X10*6/uL (4.20-5.50); Red Cell Distribution Width 12.8 % (11.0-16.0); White Blood Count 13.4 X10*3/uL (4.8-10.8)
[2020-12-06 01:10] LABS: Ethanol < 10 mg/dL
[2020-12-06 01:14] LABS: Alanine Aminotransferase 10 U/L (0-31); Albumin Level 3.9 g/dL (3.5-5.0); Alkaline Phosphatase 56 U/L (39-117); Anion Gap 16 (12-20); Aspartate Amino Transferase 8 U/L (5-31); Bilirubin Total 0.3 mg/dL (0.0-1.0); Blood Urea Nitrogen 7 mg/dL (9-16); Calcium 8.3 mg/dL (8.4-10.2); Carbon Dioxide 23 mmol/L (22-29); Chloride 101 mmol/L (96-108); Creatinine Clr Calc Pharmacy 85.9; Estimated Glomerular Filt Rate > 60; Glucose Random 203 mg/dL (60-115); Potassium 4.6 mmol/L (3.3-5.1); Sodium 135 mmol/L (135-145); Total Protein 6.2 g/dL (6.5-8.0)
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
--- NOTE | 2020-12-06 03:19 | PC.NURSE ---
PATIENT ALERT AND ORIENTED BREATHING IS EVEN AND UNLABORED SKIN IS P,D,W. NO DISTRESS NOTED. AMBULATING STEADILY TO THE BATHROOM, STAFF MEMBER WALKING WITH PATIENT IN CASE NEEDED. PATIENT NOT NEEDING ADDITIONAL ASSISTANCE.
== END 2020-12-06 07:03 | disposition home or self-care (01) ==
PROVIDERS: Emergency Provider Emergency Medicine Emergency Medical Services
DX: T40.1X1A Poisoning by heroin, accidental (unintentional), initial encounter (principal); F11.10 Opioid abuse, uncomplicated; I10 Essential (primary) hypertension; E11.9 Type 2 diabetes mellitus without complications; Y92.009 Unspecified place in unspecified non-institutional (private) residence as the place of occurrence of the external cause; Z71.51 Drug abuse counseling and surveillance of drug abuser; F17.210 Nicotine dependence, cigarettes, uncomplicated; Z71.6 Tobacco abuse counseling; Z79.899 Other long term (current) drug therapy
CPT/HCPCS: 36415; 80053; 80320; 85025; 96361; 96374; 99284

== ENCOUNTER 2022-03-12 00:40 | Inpatient (IN) | payer OTHER, SELFPAY ==
[2022-03-12] VITALS (14 sets, daily range): BP systolic 131–186; BP diastolic 63–86; PULSE 69–98; RESP 10–22; TEMP 36.4–36.8; O2SAT 92–98; BMI 28.3
--- NOTE | ~2022-03-12 | XR_ITS ---
EXAMINATION: XR CHEST CLINICAL INFORMATION: Dyspnea COMPARISON: 09/13/2020 TECHNIQUE: Frontal view of the chest was obtained. FINDINGS: Lung volumes are symmetric. No focal consolidation is seen. There is mild interstitial prominence diffusely. No evidence of pneumothorax or significant pleural effusion. The cardiomediastinal contour is unremarkable. No acute osseous findings are seen. XR/XR chest 1V IMPRESSION: No focal consolidation. Mild diffuse interstitial prominence could reflect airways disease versus developing interstitial edema.
--- NOTE | 2022-03-12 00:46 | ECG_ITS ---
Test Reason : sob Blood Pressure : / mmHG Vent. Rate : 082 BPM Atrial Rate : 082 BPM P-R Int : 140 ms QRS Dur : 080 ms QT Int : 398 ms P-R-T Axes : 069 046 057 degrees QTc Int : 464 ms Normal sinus rhythm Low voltage QRS Cannot rule out Anterior infarct , age undetermined Abnormal ECG No previous ECGs available Referred By: Nelly Clifton Electronically Signed By:Mango Stoddard
[2022-03-12] MEDS: ondansetron HCL 4 MG/2 ML VIAL IVPUSH (00:49)
--- NOTE | 2022-03-12 00:50 | ED.SOB ---
HPI - SOB/Dyspnea General Chief Complaint: Dyspnea Stated Complaint: COUGH/SOB [id number] Time Seen by Provider: 03/12/22 00:46 Source: patient Mode of arrival: EMS Limitations: no limitations History of Present Illness MD elicited complaint: shortness of breath and cough Pertinent past history: COPD Onset (ago): day(s) (3) Context: smoke/fume exposure Timing: progressively worsening Severity: moderate Exacerbating factors: exertion and coughing Relieving factors: oxygen (does not use home O2), rest and bronchodilators Known history of: COPD Associated symptoms: cough, wheezing, sputum production, nausea/vomiting and other (did drink tonight) Treatment prior to arrival: oxygen (EMS notes RA sat 89%), bronchodilator and other (125mg solumedrol by EMS) Related Data Home Medications Medication Instructions Recorded Confirmed albuterol sulfate 90 mcg/actuation 2 inh INHALATION Q4H PRN 09/13/20 09/13/20 aerosol inhaler (ProAir HFA) furosemide 20 mg tablet 20 mg PO DAILY@0730 09/13/20 09/13/20 lisinopril 2.5 mg tablet 1 tab PO DAILY 09/13/20 09/13/20 metformin 500 mg tablet 500 mg PO QAM 09/13/20 09/13/20 Previous Rx's Medication Instructions Recorded prednisone 20 mg tablet 40 mg PO DAILY #10 tab 09/13/20 Allergies Allergy/AdvReac Type Severity Reaction Status Date / Time No Known Allergies Allergy Verified 10/04/21 09:10 [No Known Allergies*] Review of Systems Review of Systems: Constitutional : No Fever, pos Chills ENT/Mouth : No sore throat, No Rhinorrhea, No Swallowing Difficulty Eyes: No Eye Pain, No Swelling, No Redness Cardiovascular : No Chest Pain, positive SOB, No Orthopnea, no Edema Respiratory : pos Cough, No Sputum, No Wheezing, positive dyspnea Gastrointestinal : pos Nausea, pos Vomiting, No Diarrhea, No abdominal Pain, No Hematochezia, No Melena Genitourinary : No Dysuria, No Urinary Frequency, No Hematuria Musculoskeletal : No joint pain, No Myalgias Skin : No Skin Lesions, No rash Neuro : pos Weakness, No Numbness, No Dizziness, No Headache Psych : No Anxiety/Panic, No Depression Heme/Lymph: No Bruising, No Lymphadenopathy Endocrine : No Polyuria, No Polydipsia All other systems reviewed and are negative [facility] Past Medical History Medical History COPD (chronic obstructive pulmonary disease) Diabetes mellitus type 2 in obese Hypertension Family History Family History (System 10/04/21 @ 09:10 by Flory Ny) Other Family history non-contributory Social History Social History Household Members: Spouse Housing: Apartment Alcohol intake: current Alcohol intake frequency: 3 or more drinks per day Substance Use Type: Opiates Advance Directives: No Advance Directives Information Provided: No service: No Current occupational status: disabled Physical Exam Vital Signs: Vital Signs: Last Vital Signs Temp 97.7 F 03/12/22 00:51 Pulse 72 03/12/22 03:09 Resp 14 03/12/22 03:09 BP 151/86 H 03/12/22 00:51 Pulse Ox 95 03/12/22 03:09 Oxygen Flow Rate 2 03/12/22 00:51 BMI result Body Mass Index 28.3 Appearance: Alert. Oriented X3. Mild acute distress. Eyes: Pupils equal, round and reactive to light. ENT: Pharynx normal. Active vomiting Neck: Normal inspection. Neck supple. CVS: tachyardic heart rate and rhythm. Pulses normal. Respiratory: Mild respiratory distress - tachypnea. Breath sounds very coarse with rales at the base Abdomen: Soft and non-tender. Skin: Skin warm and dry. pale skin color. Normal skin turgor. Extremities: No lower extremity edema. No calf ttp Neuro: Oriented X 3. No motor deficit. No sensory deficit. Course Course Course Narrative: ph slightly low but clinically okay no prior NIPPV use, requiring O2 will need admission MDM - SOB/Dyspnea MDM Narrative Medical decision making narrative: 56 yo female from home with COPD not compliant with home O2, still smoking, HTN, DM, she states she hasn't felt well in 2 days due to chills, nausea, cough with sputum production and increased work of breathing - EMS found patient at 89% shew as given duoneb and 125mg solumedrol with some improvement. At this time will need labs, cultures, lactic acid, repeat neb, IV magnesium. She is vomiting and admits to drinking tonight - IV zofran ordered. Possible COVID but she notes she is vaccinated. Given increased work of breathing, sputum production - IV ceftriaxone ordered Lab Data Result diagrams: 03/12/22 01:36 03/12/22 01:14 Labs: Lab Results 03/12/22 03/12/22 03/12/22 Range/Units 01:14 01:14 01:14 WBC (4.8-10.8) X10*3/uL RBC (4.20-5.50) X10*6/uL Hgb (12.0-16.0) g/dl Hct (37.0-47.0) % MCV (80.0-98.0) fL MCH (27.0-33.0) pg MCHC (31.0-35.0) g/dl RDW (11.0-16.0) % Plt Count MPV Immature Gran % (Auto) (0.0-0.4) % Neut % (Auto) (45-73) % Lymph % (Auto) (20-40) % [place] % (Auto) (2-11) % Eos % (Auto) (0-4) % Baso % (Auto) (0-2) % Lymph # (Auto) (1.2-4.9) X10*3/uL [place] # (Auto) (0.1-1.2) X10*3/uL Eos # (Auto) (0.0-0.4) X10*3/uL Baso # (Auto) (0.0-0.2) X10*3/uL Abs Immat Gran (auto) (0.00-0.03) X10*3/uL Absolute Neuts (auto) (2.0-8.3) x10*3/uL Absolute Nucleated RBC (0.0-0.012) X10*3/uL Nucleated RBC % (auto) (0.0-0.2) /100WBC Smear Tech's Comments PT 12.0 (9.9-13.0) SEC INR 1.1 (0.9-1.1) O2 Saturation % ABG pH at Pt Temp (7.35-7.45) ABG pCO2 at Pt Temp (32-45) mmHg ABG pO2 at Pt Temp (83-108) mmHg ABG HCO3 (22-26) mmol/L ABG Base Excess (Actual) mmol/L VBG pH (7.32-7.43) VBG pCO2 mmHg VBG pO2 mmHg VBG HCO3 (22-26) mmol/L VBG O2 Saturation % VBG Base Excess mmol/L Sodium 132 L (135-145) mmol/L Potassium 4.2 (3.3-5.1) mmol/L Chloride 95 L (96-108) mmol/L Carbon Dioxide 26 (22-29) mmol/L Anion Gap 15 (12-20) BUN 9 (9-16) mg/dL Creatinine 0.87 (0.5-1.4) mg/dL Estim Creat Clear Calc 70.6 Estimated GFR > 60 Random Glucose 286 H (60-115) mg/dL Lactic Acid (0.5-2.0) mmol/L Calcium 8.8 D (8.4-10.2) mg/dL Magnesium 1.5 L (1.6-2.6) mg/dL Total Bilirubin 0.7 (0.0-1.0) mg/dL Direct Bilirubin 0.4 (0.0-0.5) mg/dL AST 19 D (5-31) U/L ALT 23 (0-31) U/L Alkaline Phosphatase 56 (39-117) U/L Troponin I High Sens (<3.5-17.0) ng/L B-Natriuretic Peptide (<100) pg/mL Total Protein 6.6 (6.5-8.0) g/dL Albumin 4.0 (3.5-5.0) g/dL Lipase 16 (8-78) U/L Ethyl Alcohol mg/dL COVID-19 (KEYANNA) Negative (Negative) COVID-19 Clin Com See Note Influenza Type A (OSCAR) (Negative) Influenza Type B (OSCAR) (Negative) Influenza A & B Note 03/12/22 03/12/22 03/12/22 Range/Units 01:14 01:14 01:14 WBC (4.8-10.8) X10*3/uL RBC (4.20-5.50) X10*6/uL Hgb (12.0-16.0) g/dl Hct (37.0-47.0) % MCV (80.0-98.0) fL MCH (27.0-33.0) pg MCHC (31.0-35.0) g/dl RDW (11.0-16.0) % Plt Count MPV Immature Gran % (Auto) (0.0-0.4) % Neut % (Auto) (45-73) % Lymph % (Auto) (20-40) % [place] % (Auto) (2-11) % Eos % (Auto) (0-4) % Baso % (Auto) (0-2) % Lymph # (Auto) (1.2-4.9) X10*3/uL [place] # (Auto) (0.1-1.2) X10*3/uL Eos # (Auto) (0.0-0.4) X10*3/uL Baso # (Auto) (0.0-0.2) X10*3/uL Abs Immat Gran (auto) (0.00-0.03) X10*3/uL Absolute Neuts (auto) (2.0-8.3) x10*3/uL Absolute Nucleated RBC (0.0-0.012) X10*3/uL Nucleated RBC % (auto) (0.0-0.2) /100WBC Smear Tech's Comments PT (9.9-13.0) SEC INR (0.9-1.1) O2 Saturation % ABG pH at Pt Temp (7.35-7.45) ABG pCO2 at Pt Temp (32-45) mmHg ABG pO2 at Pt Temp (83-108) mmHg ABG HCO3 (22-26) mmol/L ABG Base Excess (Actual) mmol/L VBG pH 7.24 L (7.32-7.43) VBG pCO2 62 mmHg VBG pO2 54 mmHg VBG HCO3 27 H (22-26) mmol/L VBG O2 Saturation 79.0 % VBG Base Excess -1.1 mmol/L Sodium (135-145) mmol/L Potassium (3.3-5.1) mmol/L Chloride (96-108) mmol/L Carbon Dioxide (22-29) mmol/L Anion Gap (12-20) BUN (9-16) mg/dL Creatinine (0.5-1.4) mg/dL Estim Creat Clear Calc Estimated GFR Random Glucose (60-115) mg/dL Lactic Acid (0.5-2.0) mmol/L Calcium (8.4-10.2) mg/dL Magnesium (1.6-2.6) mg/dL Total Bilirubin (0.0-1.0) mg/dL Direct Bilirubin (0.0-0.5) mg/dL AST (5-31) U/L ALT (0-31) U/L Alkaline Phosphatase (39-117) U/L Troponin I High Sens 4.3 (<3.5-17.0) ng/L B-Natriuretic Peptide (<100) pg/mL Total Protein (6.5-8.0) g/dL Albumin (3.5-5.0) g/dL Lipase (8-78) U/L Ethyl Alcohol < 10 mg/dL COVID-19 (KEYANNA) (Negative) COVID-19 Clin Com Influenza Type A (OSCAR) (Negative) Influenza Type B (OSCAR) (Negative) Influenza A & B Note 03/12/22 03/12/22 03/12/22 Range/Units 01:18 01:19 01:36 WBC 13.3 H (4.8-10.8) X10*3/uL RBC 4.25 (4.20-5.50) X10*6/uL Hgb 13.4 (12.0-16.0) g/dl Hct 40.8 (37.0-47.0) % MCV 96.0 (80.0-98.0) fL MCH 31.5 (27.0-33.0) pg MCHC 32.8 (31.0-35.0) g/dl RDW 11.9 (11.0-16.0) % Plt Count TNP MPV Not Reportable Immature Gran % (Auto) 0.7 H (0.0-0.4) % Neut % (Auto) 79.1 H (45-73) % Lymph % (Auto) 14.0 L (20-40) % [place] % (Auto) 4.7 (2-11) % Eos % (Auto) 1.0 (0-4) % Baso % (Auto) 0.5 (0-2) % Lymph # (Auto) 1.9 (1.2-4.9) X10*3/uL [place] # (Auto) 0.6 (0.1-1.2) X10*3/uL Eos # (Auto) 0.1 (0.0-0.4) X10*3/uL Baso # (Auto) 0.1 (0.0-0.2) X10*3/uL Abs Immat Gran (auto) 0.09 H (0.00-0.03) X10*3/uL Absolute Neuts (auto) 10.6 H (2.0-8.3) x10*3/uL Absolute Nucleated RBC 0.000 (0.0-0.012) X10*3/uL Nucleated RBC % (auto) 0.0 (0.0-0.2) /100WBC Smear Tech's Comments VERIFIED PT (9.9-13.0) SEC INR (0.9-1.1) O2 Saturation % ABG pH at Pt Temp (7.35-7.45) ABG pCO2 at Pt Temp (32-45) mmHg ABG pO2 at Pt Temp (83-108) mmHg ABG HCO3 (22-26) mmol/L ABG Base Excess (Actual) mmol/L VBG pH (7.32-7.43) VBG pCO2 mmHg VBG pO2 mmHg VBG HCO3 (22-26) mmol/L VBG O2 Saturation % VBG Base Excess mmol/L Sodium (135-145) mmol/L Potassium (3.3-5.1) mmol/L Chloride (96-108) mmol/L Carbon Dioxide (22-29) mmol/L Anion Gap (12-20) BUN (9-16) mg/dL Creatinine (0.5-1.4) mg/dL Estim Creat Clear Calc Estimated GFR Random Glucose (60-115) mg/dL Lactic Acid 1.6 (0.5-2.0) mmol/L Calcium (8.4-10.2) mg/dL Magnesium (1.6-2.6) mg/dL Total Bilirubin (0.0-1.0) mg/dL Direct Bilirubin (0.0-0.5) mg/dL AST (5-31) U/L ALT (0-31) U/L Alkaline Phosphatase (39-117) U/L Troponin I High Sens (<3.5-17.0) ng/L B-Natriuretic Peptide (<100) pg/mL Total Protein (6.5-8.0) g/dL Albumin (3.5-5.0) g/dL Lipase (8-78) U/L Ethyl Alcohol mg/dL COVID-19 (KEYANNA) (Negative) COVID-19 Clin Com Influenza Type A (OSCAR) Negative (Negative) Influenza Type B (OSCAR) Negative (Negative) Influenza A & B Note See Note 03/12/22 03/12/22 Range/Units 01:37 02:14 WBC (4.8-10.8) X10*3/uL RBC (4.20-5.50) X10*6/uL Hgb (12.0-16.0) g/dl Hct (37.0-47.0) % MCV (80.0-98.0) fL MCH (27.0-33.0) pg MCHC (31.0-35.0) g/dl RDW (11.0-16.0) % Plt Count MPV Immature Gran % (Auto) (0.0-0.4) % Neut % (Auto) (45-73) % Lymph % (Auto) (20-40) % [place] % (Auto) (2-11) % Eos % (Auto) (0-4) % Baso % (Auto) (0-2) % Lymph # (Auto) (1.2-4.9) X10*3/uL [place] # (Auto) (0.1-1.2) X10*3/uL Eos # (Auto) (0.0-0.4) X10*3/uL Baso # (Auto) (0.0-0.2) X10*3/uL Abs Immat Gran (auto) (0.00-0.03) X10*3/uL Absolute Neuts (auto) (2.0-8.3) x10*3/uL Absolute Nucleated RBC (0.0-0.012) X10*3/uL Nucleated RBC % (auto) (0.0-0.2) /100WBC Smear Tech's Comments PT (9.9-13.0) SEC INR (0.9-1.1) O2 Saturation 96.0 % ABG pH at Pt Temp 7.29 L (7.35-7.45) ABG pCO2 at Pt Temp 50 H (32-45) mmHg ABG pO2 at Pt Temp 83 (83-108) mmHg ABG HCO3 24 (22-26) mmol/L ABG Base Excess (Actual) -2.7 mmol/L VBG pH (7.32-7.43) VBG pCO2 mmHg VBG pO2 mmHg VBG HCO3 (22-26) mmol/L VBG O2 Saturation % VBG Base Excess mmol/L Sodium (135-145) mmol/L Potassium (3.3-5.1) mmol/L Chloride (96-108) mmol/L Carbon Dioxide (22-29) mmol/L Anion Gap (12-20) BUN (9-16) mg/dL Creatinine (0.5-1.4) mg/dL Estim Creat Clear Calc Estimated GFR Random Glucose (60-115) mg/dL Lactic Acid (0.5-2.0) mmol/L Calcium (8.4-10.2) mg/dL Magnesium (1.6-2.6) mg/dL Total Bilirubin (0.0-1.0) mg/dL Direct Bilirubin (0.0-0.5) mg/dL AST (5-31) U/L ALT (0-31) U/L Alkaline Phosphatase (39-117) U/L Troponin I High Sens (<3.5-17.0) ng/L B-Natriuretic Peptide 27 (<100) pg/mL Total Protein (6.5-8.0) g/dL Albumin (3.5-5.0) g/dL Lipase (8-78) U/L Ethyl Alcohol mg/dL COVID-19 (KEYANNA) (Negative) COVID-19 Clin Com Influenza Type A (OSCAR) (Negative) Influenza Type B (OSCAR) (Negative) Influenza A & B Note ECG Data Attestation: I personally reviewed and interpreted this ECG as follows: ECG interpretation date: 03/12/22 ECG interpretation time: 01:13 Interpretation: Rate: 82 Rhythm: NSR [place]: normal Normal P waves. Normal PATRICK. Normal QRS complex. ST T wave : normal no KWADWO qTC: normal prior studies: no acute ischemia The study has been interpreted contemporaneously by me. Discharge Plan Discharge Clinical Impression: Acute exacerbation of chronic obstructive pulmonary disease, Hypoxia, Hypomagnesemia Patient Disposition: Admitted As Inpatient
[2022-03-12] MEDS: Albuterol Sulfate (0.083%) 2.5 MG/3 ML VIAL.NEB INHALE (00:59)
[2022-03-12 01:35] LABS: VBG Base Excess -1.1 mmol/L; VBG pCO2 62 mmHg; VBG pH 7.24 (7.32-7.43); VBG pO2 54 mmHg
[2022-03-12] MEDS: Magnesium Sulfate/H2O 2 GM/50 ML PIGGYBACK IV (01:35)
[2022-03-12 01:36] LABS: VBG HCO3 27 mmol/L (22-26); Venous Blood Gas Refer to POC result
[2022-03-12] MEDS: cefTRIAXone sodium 1 GM in 0.9 % Sodium Chloride 50 ML IV (01:39)
[2022-03-12 01:40] LABS: Lactic Acid 1.6 mmol/L (0.5-2.0)
[2022-03-12 01:42] LABS: Ethanol < 10 mg/dL
[2022-03-12 01:43] LABS: PLT CLUMP 1; SCAN SMEAR FLAG 1
[2022-03-12 01:44] LABS: Alanine Aminotransferase 23 U/L (0-31); Alkaline Phosphatase 56 U/L (39-117); Anion Gap 15 (12-20); Aspartate Amino Transferase 19 U/L (5-31); Bilirubin Direct 0.4 mg/dL (0.0-0.5); Bilirubin Total 0.7 mg/dL (0.0-1.0); Blood Urea Nitrogen 9 mg/dL (9-16); Calcium 8.8 mg/dL (8.4-10.2); Carbon Dioxide 26 mmol/L (22-29); Chloride 95 mmol/L (96-108); Creatinine Clr Calc Pharmacy 70.6; Estimated Glomerular Filt Rate > 60; Glucose Random 286 mg/dL (60-115); Lipase 16 U/L (8-78); Magnesium 1.5 mg/dL (1.6-2.6); Potassium 4.2 mmol/L (3.3-5.1); Sodium 132 mmol/L (135-145); Total Protein 6.6 g/dL (6.5-8.0)
[2022-03-12 01:45] LABS: Eosinophils Absolute Auto 0.1 X10*3/uL (0.0-0.4)
[2022-03-12 01:46] LABS: INTERNATIONAL NORM RATIO 1.1 (0.9-1.1)
[2022-03-12 01:49] LABS: Red Cell Distribution Width 11.9 % (11.0-16.0)
[2022-03-12 01:51] LABS: Basophils Absolute Auto 0.1 X10*3/uL (0.0-0.2); Basophils Percent Auto 0.5 % (0-2); Hematocrit 40.8 % (37.0-47.0); Hemoglobin 13.4 g/dl (12.0-16.0); Imm Gran Abs Auto 0.09 X10*3/uL (0.00-0.03); Imm Gran Pct Auto 0.7 % (0.0-0.4); Lymphocytes Absolute Auto 1.9 X10*3/uL (1.2-4.9); MANUAL DIFF FLAG SCAN; Mean Corpuscular HGB Conc 32.8 g/dl (31.0-35.0); Mean Corpuscular Hemoglobin 31.5 pg (27.0-33.0); Monocytes Absolute Auto 0.6 X10*3/uL (0.1-1.2); Monocytes Percent Auto 4.7 % (2-11); Neutrophils Absolute Auto 10.6 x10*3/uL (2.0-8.3); Neutrophils Percent Auto 79.1 % (45-73); Red Blood Count 4.25 X10*6/uL (4.20-5.50)
[2022-03-12 01:51] LABS: Troponin-I High Sensitivity 4.3 ng/L (<3.5-17.0)
[2022-03-12 01:52] LABS: White Blood Count 13.3 X10*3/uL (4.8-10.8)
[2022-03-12 02:10] LABS: COVID-19 Test Negative (Negative); IDNOW Serial# 16C4AD1C
[2022-03-12 02:11] LABS: Influenza A Negative (Negative); Influenza B2 Negative (Negative)
[2022-03-12 02:14] LABS: SLIDE REVIEW VERIFIED
[2022-03-12 02:15] LABS: B Type Natriuretic Peptide 27 pg/mL (<100)
[2022-03-12 02:23] LABS: ABG Base Excess -2.7 mmol/L; ABG HCO3 24 mmol/L (22-26); ABG pCO2 50 mmHg (32-45); ABG pH 7.29 (7.35-7.45); ABG pO2 83 mmHg (83-108)
[2022-03-12] MEDS: Azithromycin 500 MG in 0.9 % Sodium Chloride 250 ML 125 MG IV (03:10)
--- NOTE | 2022-03-12 03:17 | PC.NURSE ---
upon entering room, pt dozing off with one leg OOB, pt asked to get back into bed, as this RN is worried she may fall asleep and fall down.. pt states no ill have a panic attack, this RN explained his concern of pt falling, pt understood yet still asking for side rail down. this RN further explained his discomfort with pt half in bed half oob while falling asleep. pt agreeable to stay in bed, call bethea within reach
[2022-03-12 04:16] LABS: ABG Refer to POC result
--- NOTE | 2022-03-12 04:45 | PC.NURSE ---
pt was noted to be OOB trying to take the sheets off of bed while connected to tele, IV pump, and O2 tubing. pt was asked what she was doing, stated she was trying to strip the bed, pt reminded that she should be using her call bethea to ask for assistance. pt ambulated to with standby contact guard. pt incontinent of bowels, required bed change, pt independently able to clean herself up. unable to provide urine sample at this time as she stated she missed it. pt back in bed resting, call bethea in reach
--- NOTE | 2022-03-12 06:15 | PC.NURSE ---
pt c/o anxiety, RR 10-13 MD aware. pt given a glass of water and verbal reassurance
[2022-03-12 06:36] LABS: Appearance Urine CLEAR; Color Urine YELLOW; Glucose Urine UA >=1000 MG/DL (NEG); Leukocyte Esterase Urine NEG (NEG); Nitrite Urine NEG (NEG); PH 5.5 (5.0-8.0); Specific Gravity - Urine 1.015 (1.005-1.025); Urine Blood NEG (NEG); Urine Ketones 15 MG/DL (NEG); Urine Protein NEG (NEG-TRACE)
[2022-03-12 06:47] LABS: Mucus Urine TRACE /LPF; RBC Urine 0-2 /HPF (0); Squamous Epithelial Cell Urine 1+ /LPF
--- NOTE | 2022-03-12 09:26 | PHA.MEDREC ---
Pharmacy Consult ? Medication Reconciliation Pharmacy has completed the medication reconciliation. Pt was a little unsure of what dose of metformin she takes, but stated that her bottle says to take one tablet twice a day and they are very big pills. Based on recent claim history it seems as though she is taking 1000mg BID instead of the 500mg BID that she used to take.
[2022-03-12] MEDS: methylPREDNISolone Sod Succ 40 MG/ML VIAL 20 MG IVPUSH ×2 (11:09→22:00)
[2022-03-12] MEDS: Albuterol/Iprat 2.5/0.5MG 3 ML AMPUL.NEB INHALE ×2 (13:20→20:10)
--- NOTE | 2022-03-12 15:37 | PM.IMHP ---
History of Present Illness Date of Service: 03/12/22 Attending physician on admission: Parker Chávez Chief Complaint: Shortness of breath 56-year-old female patient with past medical history of COPD, bladder cancer status post resection, bipolar disorder presented to [facility] with 1 week of worsening shortness of breath, she feels symptoms triggered with anxiety has been he using rescue inhalers with no significant improvement denies associated symptoms of fever chills, denies allergy symptoms, patient continued to smoke 1 pack of cigarettes per day, did have mild nausea and vomiting on and off for last 1 week, denies sick contacts, no recent history of travel, denies orthopnea, no PND, therefore a was brought into hospital by her in the emergency room patient treated with IV Solu-Medrol, updraft treatment noted to have low magnesium of 1.5 therefore received 2 g of magnesium, her symptoms did not improve significantly therefore is being admitted for continued monitoring and treatment for COPD exacerbation, and acute hypoxic respiratory failure since noted to have finger oximetry of 89% on room air as per EMS. Review of Systems Review of Systems: General no headache, no dizziness no fever chills. CVS no chest pain, no palpitation. Respiratory shortness of breath, dry cough Gastrointestinal no nausea no vomiting, no abdominal pain no urinary urgency, no frequency Yes all other systems are reviewed and are negative [facility] Medical History COPD (chronic obstructive pulmonary disease) Diabetes mellitus type 2 in obese Hypertension Family History Other Family history non-contributory Pertinent family history: Patient denies family history of premature coronary artery disease, no history of lung cancer Social History Household Members: Spouse Housing: Apartment Alcohol intake: current Alcohol intake frequency: 3 or more drinks per day Substance Use Type: Opiates Advance Directives: No Advance Directives Information Provided: No service: No Current occupational status: disabled Meds Allergies Allergy/AdvReac Type Severity Reaction Status Date / Time No Known Allergies Allergy Verified 10/04/21 09:10 [No Known Allergies*] Active Medications: Current Medications Acetaminophen (Acetaminophen 325 Mg Tablet) 650 mg PO Q6H PRN PRN Reason: Fever Albuterol/Ipratropium (Albuterol/Iprat 2.5/0.5mg 3 Ml Ampul.Neb) 3 ml INHALE RQ6H WHILE AWAKE [facility] Last Admin: 03/12/22 13:20 Dose: 3 ml Documented by: Azithromycin 500 mg/ Sodium (Chloride) 250 mls @ 125 mls/hr IV Q24H [facility] Methylprednisolone Sodium Succinate (Methylprednisolone Sod Succ 40 Mg/Ml Vial) 20 mg IVPUSH Q12H [facility] Last Admin: 03/12/22 11:09 Dose: 20 mg Documented by: Ondansetron HCl (Ondansetron Hcl 4 Mg/2 Ml Vial) 4 mg IVPUSH Q8H PRN PRN Reason: Nausea Sodium Chloride (0.9 % Sodium Chloride Flush 3 Ml Syringe) 3 ml IVFLUSH QSHIFT [facility] Home Medications Medication Instructions Recorded Confirmed Last Taken Type albuterol sulfate 90 mcg/actuation 2 inh INHALATION Q4H PRN 09/13/20 03/12/22 09/13/20 History aerosol inhaler (ProAir HFA) 0000 furosemide 20 mg tablet 20 mg PO DAILY@0730 PRN 09/13/20 03/12/22 09/12/20 History 0800 lisinopril 2.5 mg tablet 1 tab PO DAILY 09/13/20 03/12/22 03/11/22 History atorvastatin 10 mg tablet 1 tab PO DAILY 03/12/22 03/12/22 03/11/22 History metformin 1,000 mg tablet 1 tab PO BID 03/12/22 03/12/22 03/11/22 History mirtazapine 7.5 mg tablet 1 tab PO BEDTIME 03/12/22 03/12/22 Unknown History Physical Exam Vital Signs and Narrative: Vital Signs: Last Vital Signs Temp 98.0 F 03/12/22 11:24 Pulse 85 03/12/22 13:22 Resp 16 03/12/22 13:22 BP 160/82 H 03/12/22 11:24 Pulse Ox 97 03/12/22 11:24 Oxygen Flow Rate 2 03/12/22 00:51 BMI result Body Mass Index 28.3 Const: Other: General awake alert x3 no acute distress. HEENT pupils equal round reactive to light and accommodation Neck supple no JVD. CVS regular rate rhythm, Respiratory lungs diminished breath sounds,no respiratory distress, occasional wheeze. Gastrointestinal abdomen soft, nontender, bowel sounds audible, no guarding , no rigidity. Extremities no edema. Neuro nonfocal Skin no rash Psych appropriate affect Results Labs CBC and Chem 7: 03/12/22 01:36 03/12/22 01:14 Labs: Laboratory Results - last 24 hr 03/12/22 03/12/22 03/12/22 01:14 01:14 01:14 MCV MCH MCHC RDW Plt Count MPV Immature Gran % (Auto) Neut % (Auto) Lymph % (Auto) [place] % (Auto) Eos % (Auto) Baso % (Auto) Lymph # (Auto) [place] # (Auto) Eos # (Auto) Baso # (Auto) Abs Immat Gran (auto) Absolute Neuts (auto) Absolute Nucleated RBC Nucleated RBC % (auto) Smear Tech's Comments PT 12.0 INR 1.1 O2 Saturation ABG pH at Pt Temp ABG pCO2 at Pt Temp ABG pO2 at Pt Temp ABG HCO3 ABG Base Excess (Actual) VBG pH VBG pCO2 VBG pO2 VBG HCO3 VBG O2 Saturation VBG Base Excess Anion Gap 15 Estim Creat Clear Calc 70.6 Estimated GFR > 60 Random Glucose 286 H Lactic Acid Calcium 8.8 D Magnesium 1.5 L Total Bilirubin 0.7 Direct Bilirubin 0.4 AST 19 D ALT 23 Alkaline Phosphatase 56 Troponin I High Sens B-Natriuretic Peptide Total Protein 6.6 Albumin 4.0 Lipase 16 Urine Color Urine Appearance Urine pH Ur Specific [place] Urine Protein Urine Glucose (UA) Urine Ketones Urine Blood Urine Nitrite Ur Leukocyte Esterase Urine RBC Urine WBC Ur Squamous Epith Cells Urine Bacteria Urine Mucus Ethyl Alcohol COVID-19 (KEYANNA) Negative COVID-19 Clin Com See Note Influenza Type A (OSCAR) Influenza Type B (OSCAR) Influenza A & B Note 03/12/22 03/12/22 03/12/22 01:14 01:14 01:14 MCV MCH MCHC RDW Plt Count MPV Immature Gran % (Auto) Neut % (Auto) Lymph % (Auto) [place] % (Auto) Eos % (Auto) Baso % (Auto) Lymph # (Auto) [place] # (Auto) Eos # (Auto) Baso # (Auto) Abs Immat Gran (auto) Absolute Neuts (auto) Absolute Nucleated RBC Nucleated RBC % (auto) Smear Tech's Comments PT INR O2 Saturation ABG pH at Pt Temp ABG pCO2 at Pt Temp ABG pO2 at Pt Temp ABG HCO3 ABG Base Excess (Actual) VBG pH 7.24 L VBG pCO2 62 VBG pO2 54 VBG HCO3 27 H VBG O2 Saturation 79.0 VBG Base Excess -1.1 Anion Gap Estim Creat Clear Calc Estimated GFR Random Glucose Lactic Acid Calcium Magnesium Total Bilirubin Direct Bilirubin AST ALT Alkaline Phosphatase Troponin I High Sens 4.3 B-Natriuretic Peptide Total Protein Albumin Lipase Urine Color Urine Appearance Urine pH Ur Specific [place] Urine Protein Urine Glucose (UA) Urine Ketones Urine Blood Urine Nitrite Ur Leukocyte Esterase Urine RBC Urine WBC Ur Squamous Epith Cells Urine Bacteria Urine Mucus Ethyl Alcohol < 10 COVID-19 (KEYANNA) COVID-19 Clin Com Influenza Type A (OSCAR) Influenza Type B (OSCAR) Influenza A & B Note 03/12/22 03/12/22 03/12/22 01:18 01:19 01:36 MCV 96.0 MCH 31.5 MCHC 32.8 RDW 11.9 Plt Count TNP MPV Not Reportable Immature Gran % (Auto) 0.7 H Neut % (Auto) 79.1 H Lymph % (Auto) 14.0 L [place] % (Auto) 4.7 Eos % (Auto) 1.0 Baso % (Auto) 0.5 Lymph # (Auto) 1.9 [place] # (Auto) 0.6 Eos # (Auto) 0.1 Baso # (Auto) 0.1 Abs Immat Gran (auto) 0.09 H Absolute Neuts (auto) 10.6 H Absolute Nucleated RBC 0.000 Nucleated RBC % (auto) 0.0 Smear Tech's Comments VERIFIED PT INR O2 Saturation ABG pH at Pt Temp ABG pCO2 at Pt Temp ABG pO2 at Pt Temp ABG HCO3 ABG Base Excess (Actual) VBG pH VBG pCO2 VBG pO2 VBG HCO3 VBG O2 Saturation VBG Base Excess Anion Gap Estim Creat Clear Calc Estimated GFR Random Glucose Lactic Acid 1.6 Calcium Magnesium Total Bilirubin Direct Bilirubin AST ALT Alkaline Phosphatase Troponin I High Sens B-Natriuretic Peptide Total Protein Albumin Lipase Urine Color Urine Appearance Urine pH Ur Specific [place] Urine Protein Urine Glucose (UA) Urine Ketones Urine Blood Urine Nitrite Ur Leukocyte Esterase Urine RBC Urine WBC Ur Squamous Epith Cells Urine Bacteria Urine Mucus Ethyl Alcohol COVID-19 (KEYANNA) COVID-19 Clin Com Influenza Type A (OSCAR) Negative Influenza Type B (OSCAR) Negative Influenza A & B Note See Note 03/12/22 03/12/22 03/12/22 01:37 02:14 06:30 MCV MCH MCHC RDW Plt Count MPV Immature Gran % (Auto) Neut % (Auto) Lymph % (Auto) [place] % (Auto) Eos % (Auto) Baso % (Auto) Lymph # (Auto) [place] # (Auto) Eos # (Auto) Baso # (Auto) Abs Immat Gran (auto) Absolute Neuts (auto) Absolute Nucleated RBC Nucleated RBC % (auto) Smear Tech's Comments PT INR O2 Saturation 96.0 ABG pH at Pt Temp 7.29 L ABG pCO2 at Pt Temp 50 H ABG pO2 at Pt Temp 83 ABG HCO3 24 ABG Base Excess (Actual) -2.7 VBG pH VBG pCO2 VBG pO2 VBG HCO3 VBG O2 Saturation VBG Base Excess Anion Gap Estim Creat Clear Calc Estimated GFR Random Glucose Lactic Acid Calcium Magnesium Total Bilirubin Direct Bilirubin AST ALT Alkaline Phosphatase Troponin I High Sens B-Natriuretic Peptide 27 Total Protein Albumin Lipase Urine Color YELLOW Urine Appearance CLEAR Urine pH 5.5 Ur Specific [place] 1.015 Urine Protein NEG Urine Glucose (UA) >=1000 H Urine Ketones 15 Urine Blood NEG Urine Nitrite NEG Ur Leukocyte Esterase NEG Urine RBC 0-2 Urine WBC 1-4 Ur Squamous Epith Cells 1+ Urine Bacteria NONE Urine Mucus TRACE Ethyl Alcohol COVID-19 (KEYANNA) COVID-19 Clin Com Influenza Type A (OSCAR) Influenza Type B (OSCAR) Influenza A & B Note Imaging Radiologist's Impressions: Impressions Chest X-Ray 03/12/22 01:30 IMPRESSION: No focal consolidation. Mild diffuse interstitial prominence could reflect airways disease versus developing interstitial edema. Assessment and Plan (1) Acute exacerbation of chronic obstructive pulmonary disease: Status: Acute (2) Hypomagnesemia: Status: Acute (3) Hypertension: Status: Acute (4) Hypoxia: Status: Acute Plan 55-year-old female who presents to the hospital with symptoms of shortness of breath progressing over the course of 1 week patient diagnosed to have acute COPD exacerbation with hypoxia. #? acute hypoxic respiratory failure due to COPD exacerbation -? persistent shortness of breath, chest x-ray showed no focal consolidation mild diffuse interstitial prominence question related to bronchitis, COVID-19 negative ? Will treat with scheduled and as needed updraft treatment, IV Solu Medrol, IV azithromycin wean oxygen as tolerated not on home oxygen Cough medication as needed #?chronic leukocytosis not on steroids at home question etiology outpatient workup #? hypertension -? stable BP continue lisinopril #? diabetes -? elevated blood sugars likely due to steroids continue home dose of metformin, will add insulin sliding scale and diabetic diet # Bipolar disorder with anxiety, since shortness of breath worsening with anxiety will consult psychiatry, continue home medication DVT prophylaxis with Lovenox Code status full code Need 2 night inpatient hospitalization due to acute hypoxic respiratory failure requiring oxygen support and treatment with IV Solu-Medrol and updraft treatment that cannot be provided at home. Quality Stroke Does the patient have a stroke diagnosis?: No VTE Prior VTE?: No VTE Risk Level:: Medical - moderate - high VTE Device Contraindication: Treatment Not Indicated VTE Drug Contraindication: N/A - Med Ordered
[2022-03-12] MEDS: 0.9 % Sodium Chloride Flush 3 ML SYRINGE IVFLUSH ×2 (17:59→22:01)
--- NOTE | 2022-03-12 18:10 | PC.NURSE ---
pt a&ox3, vss, reports that breathing has improved, denies any pain at this time. 20 G IV left and and right AC flushed and patent. insulin held pending dinner arrival in ED.
--- NOTE | 2022-03-12 19:04 | PC.NURSE ---
Addendum entered by Chen Horn 03/12/22 21:06: pt is alert and oriented. resting in bed. no signs of acute distress notice. breathing equally unlabored. report given to JORGE Collado Original Note: report received from JORGE Cruz
[2022-03-12 19:22] LABS: Glucose, Whole Blood 336 mg/dL (60-115)
[2022-03-12] MEDS: Insulin Lispro 100 UNIT/ML 3 ML VIAL SUBCUT (19:35)
[2022-03-12 21:37] LABS: Glucose, Whole Blood 285 mg/dL (60-115)
[2022-03-12] MEDS: Mirtazapine 7.5 MG TABLET PO (22:00)
[2022-03-12] MEDS: metFORMIN HCl 1,000 MG TABLET 1000 MG PO (22:00)
[2022-03-13] MEDS: Azithromycin 500 MG in 0.9 % Sodium Chloride 250 ML 125 MG IV (02:58)
[2022-03-13 03:33] VITALS: BP 150/81; PULSE 76; RESP 18; TEMP 36.2; O2SAT 96
[2022-03-13] MEDS: Albuterol/Iprat 2.5/0.5MG 3 ML AMPUL.NEB INHALE (07:17)
[2022-03-13 07:18] VITALS: PULSE 70; RESP 18; O2SAT 98
[2022-03-13 07:31] VITALS: BP 138/71; PULSE 70; RESP 18; TEMP 36.1; O2SAT 98
[2022-03-13 07:40] LABS: Glucose, Whole Blood 293 mg/dL (60-115)
[2022-03-13] MEDS: Insulin Lispro 100 UNIT/ML 3 ML VIAL SUBCUT ×2 (08:10→12:00)
[2022-03-13] MEDS: metFORMIN HCl 1,000 MG TABLET 1000 MG PO (08:11)
[2022-03-13] MEDS: lisinopriL 2.5 MG TABLET PO (08:12)
[2022-03-13] MEDS: Atorvastatin Calcium 10 MG TABLET PO (08:12)
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
--- NOTE | 2022-03-13 10:55 | PM.DS ---
DS: Providers Provider Date of Service: 03/13/22 Date of admission: 03/12/22 08:17 Primary care physician: Unknown Physician Consults: 03/12/22 15:55 Consult to Psychiatry Routine Consulting Provider: Mayda Pickett Reason for consultation: Anxiety with underlying history of bipolar disorder 03/13/22 08:59 Consult to Care Team Routine Comment: Reason for consultation: PAST HX OPIOD ABUSE 12/06/20 ?ETOH NOTE 3 DRINKS QD DS: Diagnosis Discharge Diagnosis (1) Bipolar disorder: Status: Acute (2) Chronic post-traumatic stress disorder (PTSD): Status: Acute DS: Summary Hospital Course Hospital Course: History of presenting illness Chief Complaint: Shortness of breath 56-year-old female patient with past medical history of COPD, bladder cancer status post resection, bipolar disorder presented to [facility] with 1 week of worsening shortness of breath, she feels symptoms triggered with anxiety has been he using rescue inhalers with no significant improvement denies associated symptoms of fever chills, denies allergy symptoms, patient continued to smoke 1 pack of cigarettes per day, did have mild nausea and vomiting on and off for last 1 week, denies sick contacts, no recent history of travel, denies orthopnea, no PND, therefore a was brought into hospital by her in the emergency room patient treated with IV Solu-Medrol, updraft treatment noted to have low magnesium of 1.5 therefore received 2 g of magnesium, her symptoms did not improve significantly therefore is being admitted for continued monitoring and treatment for COPD exacerbation, and acute hypoxic respiratory failure since noted to have finger oximetry of 89% on room air as per EMS. Hospital course 55-year-old female presented with symptoms of shortness of breath progressing over the course of 1 week patient diagnosed to have acute COPD exacerbation with hypoxia. #? acute hypoxic respiratory failure due to COPD exacerbation patient admitted to medical floor chest x-ray showed no focal consolidation showed mild diffuse interstitial prominence question related to bronchitis COVID-19 negative patient treated with scheduled and as needed updraft treatment, IV Solu Medrol, IV azithromycin, patient responded well to above treatment, oxygenation stable at room air patient's symptoms was mostly aggravated with anxiety therefore patient evaluated by psychiatrist and has been started on Seroquel 50 mg at bedtime with underlying history of PTSD and bipolar disorder, upon discharge patient has been recommended to use as needed albuterol, she has been started on Breo and has been strongly advised to abstain from smoking patient declined nicotine patch. #?chronic leukocytosis not on steroids at home?question etiology outpatient workup recommended #? hypertension? stable BP continue lisinopril #? diabetes? elevated blood sugars likely due to steroids continue home dose of metformin, and diabetic diet # Bipolar disorder with anxiety, seen by Psychiatry and has been started on Seroquel 50 mg at bedtime she will be continued on mirtazapine and recommend outpatient therapy. Time Spent with Patient Time attestation: Total time spent providing and/or coordinating discharge services: Discharge coordination time: Greater than 30 minutes Quality: Safe Use of Opioids Does Pt have an Active Cancer Diagnosis on the Problem List?: No Quality: Stroke Does the patient have a stroke diagnosis?: No Physical Exam Vital Signs: Vital Signs: Last Vital Signs Temp 96.9 F 03/13/22 07:31 Pulse 70 03/13/22 07:31 Resp 18 03/13/22 07:31 BP 138/71 03/13/22 07:31 Pulse Ox 98 03/13/22 07:31 Oxygen Flow Rate 2 03/12/22 00:51 BMI result Body Mass Index 28.3 Const: Other: General awake alert x3 no acute distress.? Neck supple no JVD. CVS? regular rate rhythm, Respiratory lungs clear to auscultation,no respiratory distres Gastrointestinal abdomen soft, nontender, bowel sounds audible, no guarding , no rigidity. Extremities no edema. Neuro nonfocal Skin no rash Psych appropriate affect DS: Data Data Completed and Pending Labs on day of discharge: Laboratory Results - last 24 hr 03/12/22 03/12/22 03/13/22 19:12 21:32 07:33 POC Glucose 336 H 285 H 293 H Preliminary micro results at discharge 03/12/22 01:36 Blood Culture - Preliminary Blood - Venous No growth after 24 hours. 03/12/22 01:14 Blood Culture - Preliminary Blood - Venous No growth after 24 hours. Discharge Plan Discharge Patient Disposition: Home, Self-Care Discharge Diagnosis: Acute hypoxia due to COPD exacerbation Hypomagnesemia Post traumatic stress disorder Referrals: Physician,Unknown J [Primary Care Provider] - 1 Week Discharge Medications: New quetiapine 50 mg Tablet 50 mg PO BEDTIME Qty: 30 0RF azithromycin 250 mg tablet 250 mg PO DAILY 4 Days Qty: 4 0RF Rx Instructions: start on day 2 of therapy Breo Ellipta 100-25 mcg/dose blister with device 1 inh inhalation DAILY Qty: 60 0RF Continued furosemide 20 mg tablet 20 mg PO DAILY@0730 PRN (Reason: Weight Gain) 0RF albuterol sulfate [ProAir HFA] 90 mcg/actuation HFA aerosol inhaler 2 inh inhalation Q4H PRN (Reason: Shortness Of Breath) 0RF lisinopril 2.5 mg tablet 1 tab PO DAILY 0RF mirtazapine 7.5 mg tablet 1 tab PO BEDTIME 0RF atorvastatin 10 mg tablet 1 tab PO DAILY 0RF metformin 1,000 mg tablet 1 tab PO BID 0RF Discharge Orders: Discharge Order (Routine); Ordered 03/13/22 Ordered By: Parker Chávez Diet: diabetic diet Activity on Discharge: As tolerated Stand Alone Forms: Patient Portal Discharge page Care Plan Goals: Strongly recommend to abstain from smoking, take azithromycin for 4 days and use cough medication as needed your been started on a new inhaler Breo take 1 inhaler daily start taking Seroquel 50 mg at night time and outpatient follow-up with therapist Health Concerns: Take home medications as before Plan of Treatment: Outpatient follow-up primary care physician and therapist Assessment: As per discharge summary
[2022-03-13 11:20] VITALS: BP 138/68; PULSE 78; RESP 19; TEMP 36.3; O2SAT 96
[2022-03-13] MEDS: 0.9 % Sodium Chloride Flush 3 ML SYRINGE IVFLUSH (11:25)
[2022-03-13] MEDS: QUEtiapine Fumarate 25 MG TABLET PO (11:25)
[2022-03-13] MEDS: Fluticasone/Vilanterol 100/25 BLST.W.DEV 1 PUFF INHALE (11:30)
[2022-03-13 11:38] LABS: Glucose, Whole Blood 230 mg/dL (60-115)
[2022-03-13] MEDS: methylPREDNISolone Sod Succ 40 MG/ML VIAL 20 MG IVPUSH (11:46)
[2022-03-13 13:19] LABS: Anion Gap 17 (12-20); Carbon Dioxide 26 mmol/L (22-29); Chloride 99 mmol/L (96-108); Magnesium 2.1 mg/dL (1.6-2.6); Potassium 4.9 mmol/L (3.3-5.1); Sodium 137 mmol/L (135-145)
--- NOTE | 2022-03-13 13:25 | MHC.CARE ---
CARE Team responded to consult request and met with patient in room 363 to discuss her anxiety/depressive symptoms offer treatment recommendations. She was sitting up on the side of her bed fully dressed in street clothes, also present. Patient was engable but goal directed on leaving as she called her on his lunch break thinking her discharge would be immediate. She decline referral to [facility], said that long of a day overwhelmed her even thinking of it. Patient intermittently became tearful and said that she does need help but does not know where to start, said she is considering going to [place] (now [facility]) for a few days for her mental health. Was not open to having a level of care assessment and possibly get help today, said she is not suicidal and is well aware of the process of getting an crisis evaluation, will do that on her own if necessary. Was upset because her PCP at [facility] knows she needs help but they do not offer any behavioral health services. At this time patient denied suicidal ideation, plan or intention and is not having a psychiatric crisis, does not appear to meet the criteria for an admission. She identified her as her primary support, he was at bedside and seemed caring and understanding. She is open to a therapy referral to [facility] which the CARE team will follow up with. RN updated that patient does not need any further interventions for her mental health.
--- NOTE | 2022-03-13 13:49 | MHC.CM.PN ---
Addendum entered by Nichole Rashid 03/13/22 14:05: please see care team note from 03/13/22 patient was open to rfefferal to [facility] for mental health counseling therapy and medication management Original Note: nurse shoe caser note electronic medical record reviewed along with case discussed with [facility] team worker met with patient she reported that she hasd hx of taking opiods after the sudden deayh marysol her son and was admitted to inpatient psych, and they saw a psychiatrist and therapist , but no longer does , she reported to me that she has diagnosis ptsd ND BIPOLAR AND IS TRYING TO GET BACK TO SEEING ONE SHE REPORTED TO ME THAT SHE AKSED HER PCP AND WAS TOLD SHE NEEDED TO FIND ONE HERSELF , ON ADMISSION NOTES ETOH SEVERAL TIMES WEEKLY ? AMOUNT , SHE DENIES THIS AND SAYS ONLY ON OCCASION. CARE TEAM REFERRAL WAS INIATED. PATIENT REPORTS SHE LIVES WITH HER AND HAS NO VNA , NO DME SERVICES OR FURNITURE SALESPERSON AND NO MENTAL HEALTH SERVICES AT THIS TIME BUT WOULD LIKE THEM , SHE IS INDEPENDENT IN ALL ADLS AND MOBILITY WITH OUT ANY DEVICES AND HAS A PCP AT [facility] AT THE [place] OFFICE . DISCHARGE PLAN HOME WITH NO [facility] SERVICES CARE TEAM RECOMENDATION WHEN THEY MET WITH PATIENT TRANSPORTATION HER
== END 2022-03-13 15:00 | disposition home or self-care (01) | DRG 140 ==
LOC: HO.ED 02:00 → HO.EDOVER 08:23 → HO.S3 18:55
PROVIDERS: Admitting Provider Hospitalist; Emergency Provider Emergency Medicine; PCP Pediatrics; Visit Provider Hospitalist
DX: J44.1 Chronic obstructive pulmonary disease with (acute) exacerbation (principal); J96.01 Acute respiratory failure with hypoxia; E11.9 Type 2 diabetes mellitus without complications; E83.42 Hypomagnesemia; F17.210 Nicotine dependence, cigarettes, uncomplicated; D72.829 Elevated white blood cell count, unspecified; F31.9 Bipolar disorder, unspecified; F43.12 Post-traumatic stress disorder, chronic; Z85.51 Personal history of malignant neoplasm of bladder; Z71.6 Tobacco abuse counseling; Z20.822 Contact with and (suspected) exposure to COVID-19; Z79.51 Long term (current) use of inhaled steroids; Z79.84 Long term (current) use of oral hypoglycemic drugs; Z79.899 Other long term (current) drug therapy
CPT/HCPCS: 36415; 71045; 80048; 80051; 80076; 81001; 82077; 82803; 82947; 83605; 83690; 83735; 83880; 84484; 85025; 85610; 87040; 87502; 87635; 93005; 94640; 96365; 96366; 96367; 96375; 99284; 99285; J0456; J0696; J2405; J2920; J3475

== ENCOUNTER 2022-07-18 20:08 | Inpatient (IN) | payer OTHER, SELFPAY ==
[2022-07-18] VITALS (7 sets, daily range): BP systolic 125–180; BP diastolic 63–88; PULSE 74–120; RESP 12–36; TEMP 36.8–36.9; O2SAT 81–96; BMI 28.3
--- NOTE | ~2022-07-18 | XR_ITS ---
EXAMINATION: XR CHEST CLINICAL INFORMATION: Shortness of breath. COPD. COMPARISON: 01/10/2022 TECHNIQUE: Frontal view of the chest was obtained. FINDINGS: No focal consolidation. Mild diffuse prominence of the interstitium redemonstrated. No pleural effusion or pneumothorax. Normal heart size and pulmonary vascularity. No acute osseous abnormalities. XR/XR chest 1V IMPRESSION: Stable diffuse prominence of interstitium may reflect bronchitis an/or chronic airways disease. No focal consolidation.
--- NOTE | 2022-07-18 20:54 | ECG_ITS ---
Test Reason : SOB Blood Pressure : / mmHG Vent. Rate : 083 BPM Atrial Rate : 083 BPM P-R Int : 140 ms QRS Dur : 078 ms QT Int : 404 ms P-R-T Axes : 073 047 065 degrees QTc Int : 474 ms Normal sinus rhythm Normal ECG When compared with ECG of 12-MAR-2022 00:56, Minimal criteria for Anterior infarct are no longer Present Referred By: Sana Tipton Electronically Signed By:JAYLYN DAN
[2022-07-18] MEDS: 0.9 % Sodium Chloride 1,000 ML 999 ML IVCONT (20:57)
[2022-07-18] MEDS: Magnesium Sulfate/H2O 2 GM/50 ML PIGGYBACK IV (20:57)
[2022-07-18] MEDS: methylPREDNISolone Sod Succ 125 MG/2 ML VIAL IVPUSH (20:57)
[2022-07-18] MEDS: Albuterol Sulfate (0.083%) 2.5 MG/3 ML VIAL.NEB 10 MG INHALE (21:00)
[2022-07-18] MEDS: Midazolam HCl/PF 2 MG/2 ML VIAL IVPUSH (21:05)
[2022-07-18 21:12] LABS: MANUAL DIFF FLAG NO
[2022-07-18 21:15] LABS: Basophils Absolute Auto 0.1 X10*3/uL (0.0-0.2); Basophils Percent Auto 0.6 % (0-2); Eosinophils Absolute Auto 0.1 X10*3/uL (0.0-0.4); Eosinophils Percent Auto 0.3 % (0-4); Hemoglobin 13.8 g/dl (12.0-16.0); Imm Gran Abs Auto 0.07 X10*3/uL (0.00-0.03); Imm Gran Pct Auto 0.4 % (0.0-0.4); Lymphocytes Absolute Auto 2.8 X10*3/uL (1.2-4.9); Lymphocytes Percent Auto 16.8 % (20-40); Mean Corpuscular HGB Conc 33.7 g/dl (31.0-35.0); Mean Corpuscular Hemoglobin 31.8 pg (27.0-33.0); Mean Corpuscular Volume 94.5 fL (80.0-98.0); Mean Platelet Volume 10.2 fL (9.4-12.3); Monocytes Absolute Auto 1.1 X10*3/uL (0.1-1.2); Monocytes Percent Auto 6.7 % (2-11); Neutrophils Absolute Auto 12.6 x10*3/uL (2.0-8.3); Neutrophils Percent Auto 75.2 % (45-73); Platelet Count 284 X10*3/uL (160-400); Red Blood Count 4.34 X10*6/uL (4.20-5.50); Red Cell Distribution Width 11.9 % (11.0-16.0); White Blood Count 16.7 X10*3/uL (4.8-10.8)
[2022-07-18 21:16] LABS: VBG Base Excess -1.3 mmol/L; VBG HCO3 24 mmol/L (22-26); VBG pCO2 46 mmHg; VBG pH 7.33 (7.32-7.43); VBG pO2 94 mmHg
[2022-07-18 21:17] LABS: Venous Blood Gas Refer to POC result
[2022-07-18 21:22] LABS: Prothrombin Time 11.7 SEC (10.0-13.1)
[2022-07-18 21:33] LABS: COVID-19 Test Negative (Negative); IDNOW Serial# 55D5AD1C
[2022-07-18 21:44] LABS: Lactic Acid 3.8 mmol/L (0.5-2.0)
[2022-07-18 21:50] LABS: Alanine Aminotransferase 31 U/L (0-31); Albumin Level 4.6 g/dL (3.5-5.0); Alkaline Phosphatase 58 U/L (39-117); Anion Gap 20 (12-20); Aspartate Amino Transferase 29 U/L (5-31); Bilirubin Direct 0.4 mg/dL (0.0-0.5); Bilirubin Total 0.8 mg/dL (0.0-1.0); Blood Urea Nitrogen 8 mg/dL (9-16); Calcium 9.3 mg/dL (8.4-10.2); Carbon Dioxide 25 mmol/L (22-29); Chloride 93 mmol/L (96-108); Estimated Glomerular Filt Rate > 60; Glucose Random 247 mg/dL (60-115); Potassium 3.4 mmol/L (3.3-5.1); Sodium 135 mmol/L (135-145); Total Protein 7.3 g/dL (6.5-8.0)
--- NOTE | 2022-07-18 22:21 | ED.SOB ---
HPI - SOB/Dyspnea General Chief Complaint: Dyspnea Stated Complaint: Diff breathing Time Seen by Provider: 07/18/22 20:53 Source: patient, family and EMS Mode of arrival: ambulatory Limitations: no limitations History of Present Illness HPI Narrative: patient comes to the emergency room by EMS accompanied by her . Patient reports that she has significant shortness of breath , known to have COPD. EMS reports that when they arrived to the patient's residence, patient's oxygen saturation was 81% in room air, improved to 94% on 6 L. On arrival patient was giving Solu-Medrol, magnesium and an hour long breathing treatment. The patient's is at bedside, reports that the patient has been having trouble breathing for the last couple of nights, patient has had insomnia for approximately 3 weeks, and a lot of anxiety. Related Data Home Medications Medication Instructions Recorded Confirmed albuterol sulfate 90 mcg/actuation 2 inh inhalation Q4H PRN Shortness 09/13/20 03/12/22 aerosol inhaler (ProAir HFA) Of Breath furosemide 20 mg tablet 20 mg PO DAILY@0730 PRN Weight Gain 09/13/20 03/12/22 lisinopril 2.5 mg tablet 1 tab PO DAILY 09/13/20 03/12/22 atorvastatin 10 mg tablet 1 tab PO DAILY 03/12/22 03/12/22 metformin 1,000 mg tablet 1 tab PO BID 03/12/22 03/12/22 mirtazapine 7.5 mg tablet 1 tab PO BEDTIME 03/12/22 03/12/22 Previous Rx's Medication Instructions Recorded azithromycin 250 mg tablet 250 mg PO DAILY 4 days #4 tabs 03/13/22 fluticasone furoate 100 1 inh inhalation DAILY #60 ea 03/13/22 mcg-vilanterol 25 mcg/dose inhalation powder (Breo Ellipta) quetiapine 50 mg tablet 50 mg PO BEDTIME #30 tabs 03/13/22 Allergies Allergy/AdvReac Type Severity Reaction Status Date / Time No Known Allergies Allergy Verified 10/04/21 09:10 [No Known Allergies*] Review of Systems Review of Systems: Yes Unobtainable due to mental condition PMFSH Past Medical History Medical History Bipolar disorder Chronic post-traumatic stress disorder (PTSD) COPD (chronic obstructive pulmonary disease) Diabetes mellitus type 2 in obese Hypertension Family History Family History Other Family history non-contributory Social History Social History Household Members: Spouse and Children Housing: Apartment Alcohol intake: current Alcohol intake frequency: 3 or more drinks per day Patient Tobacco Use Status: Current everyday Tobacco user Tobacco use type: Cigarette Substance Use Type: Opiates Advance Directives: No Advance Directives Information Provided: No service: No Current occupational status: disabled Physical Exam Vital Signs: Vital Signs: Last Vital Signs Temp 98.5 F 07/18/22 20:31 Pulse 73 07/19/22 00:30 Resp 21 H 07/19/22 00:30 BP 173/71 H 07/19/22 00:30 Pulse Ox 90 L 07/19/22 00:30 O2 Del Method 07/19/22 00:30 O2 Flow Rate 2 07/19/22 00:30 BMI result Body Mass Index 28.3 Const: Other: Appearance: Alert. Oriented X3. In respiratory distress, see respiratory below Eyes: Pupils equal, round and reactive to light. ENT: Pharynx normal. Neck: Normal inspection. Neck supple. No lymph nodes noted. No crepitus CVS: Normal heart rate and rhythm. Pulses normal. Normal S1 and S2 Respiratory: on arrival slightly tight breath sounds, fairly good air movement, patient receiving Solu-Medrol, magnesium and being treatments 1 shortly after oxygen saturation 93% parent patient tachypneic, respiratory rate 40 Abdomen: Soft and nontender. No rigidity. No distention. Skin: Skin warm and dry. Normal skin color. Normal skin turgor. Extremities: No lower extremity edema. No Lacerations. No Rash Neuro: Oriented X 3. No motor deficit. No sensory deficit. Moving all extremities. No slurred speech. CN 2 through 12 grossly intact Psych: cooperative, very anxious Course Course Course Narrative: visits being treatment, patient received 2 mg of Versed, patient was extremely anxious. . Patient now on nasal cannula 3 L after Versed, oxygen saturation 93%, patient is sleeping. Patient's white blood cell count 16.7, patient has chronic leukocytosis. Lactic acid 3.8, likely secondary to several nebulization treatments that the patient has been using throughout the day. No fever, normal blood pressure, at this time sepsis is not suspected. Patient is off oxygen, patient's oxygen saturation drops to 87% while sitting without any oxygen, then comes back to 90, keeps going back and forth. Patient is now on 2 L oxygen. Patient does not use oxygen at home. lactic acid is 1.7. , sepsis is not suspected. Patient was already treated with antibiotics, IV ceftriaxone and azithromycin Chest x-ray shows diffuse prominence of interstitium which may be bronchitis or chronic airway disease, no focal consolidation. MDM - SOB/Dyspnea Lab Data Result diagrams: 07/18/22 21:01 07/18/22 21:01 Labs: Lab Results 07/18/22 07/18/22 07/18/22 Range/Units 21: 21: 21:01 WBC 16.7 H (4.8-10.8) X10*3/uL RBC 4.34 (4.20-5.50) X10*6/uL Hgb 13.8 (12.0-16.0) g/dl Hct 41.0 (37.0-47.0) % MCV 94.5 (80.0-98.0) fL MCH 31.8 (27.0-33.0) pg MCHC 33.7 (31.0-35.0) g/dl RDW 11.9 (11.0-16.0) % Plt Count 284 (160-400) X10*3/uL MPV 10.2 (9.4-12.3) fL Immature Gran % (Auto) 0.4 (0.0-0.4) % Neut % (Auto) 75.2 H (45-73) % Lymph % (Auto) 16.8 L (20-40) % [place] % (Auto) 6.7 (2-11) % Eos % (Auto) 0.3 (0-4) % Baso % (Auto) 0.6 (0-2) % Lymph # (Auto) 2.8 (1.2-4.9) X10*3/uL [place] # (Auto) 1.1 (0.1-1.2) X10*3/uL Eos # (Auto) 0.1 (0.0-0.4) X10*3/uL Baso # (Auto) 0.1 (0.0-0.2) X10*3/uL Abs Immat Gran (auto) 0.07 H (0.00-0.03) X10*3/uL Absolute Neuts (auto) 12.6 H (2.0-8.3) x10*3/uL Absolute Nucleated RBC 0.000 (0.0-0.012) X10*3/uL Nucleated RBC % (auto) 0.0 (0.0-0.2) /100WBC PT 11.7 (10.0-13.1) SEC INR 1.0 (0.9-1.1) VBG pH (7.32-7.43) VBG pCO2 mmHg VBG pO2 mmHg VBG HCO3 (22-26) mmol/L VBG O2 Saturation % VBG Base Excess mmol/L Sodium 135 (135-145) mmol/L Potassium 3.4 D (3.3-5.1) mmol/L Chloride 93 L (96-108) mmol/L Carbon Dioxide 25 (22-29) mmol/L Anion Gap 20 (12-20) BUN 8 L (9-16) mg/dL Creatinine 0.92 (0.5-1.4) mg/dL Estim Creat Clear Calc 66.0 Estimated GFR > 60 Random Glucose 247 H (60-115) mg/dL Lactic Acid (0.5-2.0) mmol/L Lactic Acid F/U @ 2Hr (0.5-2.0) mmol/L Calcium 9.3 (8.4-10.2) mg/dL Total Bilirubin 0.8 (0.0-1.0) mg/dL Direct Bilirubin 0.4 (0.0-0.5) mg/dL AST 29 D (5-31) U/L ALT 31 (0-31) U/L Alkaline Phosphatase 58 (39-117) U/L Troponin I High Sens (<3.5-17.0) ng/L B-Natriuretic Peptide (<100) pg/mL Total Protein 7.3 (6.5-8.0) g/dL Albumin 4.6 (3.5-5.0) g/dL COVID-19 (KEYANNA) (Negative) COVID-19 Clin Com 09/30/22 09/30/22 09/30/22 Range/Units 21:01 21:01 21:10 WBC (4.8-10.8) X10*3/uL RBC (4.20-5.50) X10*6/uL Hgb (12.0-16.0) g/dl Hct (37.0-47.0) % MCV (80.0-98.0) fL MCH (27.0-33.0) pg MCHC (31.0-35.0) g/dl RDW (11.0-16.0) % Plt Count (160-400) X10*3/uL MPV (9.4-12.3) fL Immature Gran % (Auto) (0.0-0.4) % Neut % (Auto) (45-73) % Lymph % (Auto) (20-40) % [place] % (Auto) (2-11) % Eos % (Auto) (0-4) % Baso % (Auto) (0-2) % Lymph # (Auto) (1.2-4.9) X10*3/uL [place] # (Auto) (0.1-1.2) X10*3/uL Eos # (Auto) (0.0-0.4) X10*3/uL Baso # (Auto) (0.0-0.2) X10*3/uL Abs Immat Gran (auto) (0.00-0.03) X10*3/uL Absolute Neuts (auto) (2.0-8.3) x10*3/uL Absolute Nucleated RBC (0.0-0.012) X10*3/uL Nucleated RBC % (auto) (0.0-0.2) /100WBC PT (10.0-13.1) SEC INR (0.9-1.1) VBG pH (7.32-7.43) VBG pCO2 mmHg VBG pO2 mmHg VBG HCO3 (22-26) mmol/L VBG O2 Saturation % VBG Base Excess mmol/L Sodium (135-145) mmol/L Potassium (3.3-5.1) mmol/L Chloride (96-108) mmol/L Carbon Dioxide (22-29) mmol/L Anion Gap (12-20) BUN (9-16) mg/dL Creatinine (0.5-1.4) mg/dL Estim Creat Clear Calc Estimated GFR Random Glucose (60-115) mg/dL Lactic Acid 3.8 H* (0.5-2.0) mmol/L Lactic Acid F/U @ 2Hr (0.5-2.0) mmol/L Calcium (8.4-10.2) mg/dL Total Bilirubin (0.0-1.0) mg/dL Direct Bilirubin (0.0-0.5) mg/dL AST (5-31) U/L ALT (0-31) U/L Alkaline Phosphatase (39-117) U/L Troponin I High Sens 6.5 D (<3.5-17.0) ng/L B-Natriuretic Peptide 36 (<100) pg/mL Total Protein (6.5-8.0) g/dL Albumin (3.5-5.0) g/dL COVID-19 (KEYANNA) Negative (Negative) COVID-19 Clin Com See Note 07/18/22 07/18/22 Range/Units 21:10 23:26 WBC (4.8-10.8) X10*3/uL RBC (4.20-5.50) X10*6/uL Hgb (12.0-16.0) g/dl Hct (37.0-47.0) % MCV (80.0-98.0) fL MCH (27.0-33.0) pg MCHC (31.0-35.0) g/dl RDW (11.0-16.0) % Plt Count (160-400) X10*3/uL MPV (9.4-12.3) fL Immature Gran % (Auto) (0.0-0.4) % Neut % (Auto) (45-73) % Lymph % (Auto) (20-40) % [place] % (Auto) (2-11) % Eos % (Auto) (0-4) % Baso % (Auto) (0-2) % Lymph # (Auto) (1.2-4.9) X10*3/uL [place] # (Auto) (0.1-1.2) X10*3/uL Eos # (Auto) (0.0-0.4) X10*3/uL Baso # (Auto) (0.0-0.2) X10*3/uL Abs Immat Gran (auto) (0.00-0.03) X10*3/uL Absolute Neuts (auto) (2.0-8.3) x10*3/uL Absolute Nucleated RBC (0.0-0.012) X10*3/uL Nucleated RBC % (auto) (0.0-0.2) /100WBC PT (10.0-13.1) SEC INR (0.9-1.1) VBG pH 7.33 (7.32-7.43) VBG pCO2 46 mmHg VBG pO2 94 mmHg VBG HCO3 24 (22-26) mmol/L VBG O2 Saturation 98.0 % VBG Base Excess -1.3 mmol/L Sodium (135-145) mmol/L Potassium (3.3-5.1) mmol/L Chloride (96-108) mmol/L Carbon Dioxide (22-29) mmol/L Anion Gap (12-20) BUN (9-16) mg/dL Creatinine (0.5-1.4) mg/dL Estim Creat Clear Calc Estimated GFR Random Glucose (60-115) mg/dL Lactic Acid (0.5-2.0) mmol/L Lactic Acid F/U @ 2Hr 1.7 (0.5-2.0) mmol/L Calcium (8.4-10.2) mg/dL Total Bilirubin (0.0-1.0) mg/dL Direct Bilirubin (0.0-0.5) mg/dL AST (5-31) U/L ALT (0-31) U/L Alkaline Phosphatase (39-117) U/L Troponin I High Sens (<3.5-17.0) ng/L B-Natriuretic Peptide (<100) pg/mL Total Protein (6.5-8.0) g/dL Albumin (3.5-5.0) g/dL COVID-19 (KEYANNA) (Negative) COVID-19 Clin Com Imaging Data Chest x-ray: Radiologist's impression: FINDINGS: No focal consolidation. Mild diffuse prominence of the interstitium redemonstrated. No pleural effusion or pneumothorax. Normal heart size and pulmonary vascularity. No acute osseous abnormalities. XR/XR chest 1V IMPRESSION: Stable diffuse prominence of interstitium may reflect bronchitis an/or chronic airways disease. No focal consolidation. Critical Care Time Critical Care Time Critical Care Time: Yes Total Critical Care Time: 50 Attestation: I have personally provided critical care time. Time includes review of lab data, radiology results, discussion with consultants, and monitoring for potential decompensation. Intervention performed as documented. Discharge Plan Discharge Clinical Impression: COPD (chronic obstructive pulmonary disease), Anxiety Patient Disposition: Admitted As Inpatient
[2022-07-18 22:45] LABS: B Type Natriuretic Peptide 36 pg/mL (<100); Troponin-I High Sensitivity 6.5 ng/L (<3.5-17.0)
[2022-07-18 23:09] LABS: Reflex Lactate? Lactic Acid Added
[2022-07-18 23:49] LABS: ~Lactic Acid-LAB USE ONLY 1.7 mmol/L (0.5-2.0)
[2022-07-19] VITALS (8 sets, daily range): BP systolic 135–173; BP diastolic 71–82; PULSE 63–73; RESP 14–21; TEMP 36.2–36.6; O2SAT 90–99
[2022-07-19] MEDS: cefTRIAXone sodium 1 GM in 0.9 % Sodium Chloride 50 ML IV (00:24)
--- NOTE | 2022-07-19 00:28 | PC.NURSE ---
Patient ambulatory around nurses station with room air saturations 91%. She is seated back in bed. However, patient with intermittent oxygen desaturations to 86-87% on room air at rest. 2L NC applied and aware.
[2022-07-19] MEDS: Azithromycin 500 MG in 0.9 % Sodium Chloride 250 ML 125 MG IV (00:45)
--- NOTE | 2022-07-19 01:09 | P.HPHOSP_ITS ---
History of Present Illness Date of Service: 07/19/22 Chief Complaint: shortness of breath 57-year-old female with past medical history of COPD, PTSD, bipolar disorder, diabetes, HTN, severe anxiety who presents to the hospital with complaints of increased shortness of breath, cough, as well as sputum production. on arrival of EMS at her home she was found to be 84% on room air. Patient reports that she has been suffering with intermittent shortness of breath, for the past few weeks on and off, but yesterday became so severe that she had a panic attack. She denies having any fever or chills, denies any chest pain, no abdominal pain nausea or vomiting, no diarrhea constipation, no urinary symptoms and no lower extremity edema. On arrival to the ED patient was found to be 81% on room air. With tachycardia of 120, and tachypnea of 36. She is hypoxic at rest as well with O2 at at 86% at rest. Labs are significant for WBC count of 16.7, lactic acid of 3.8 which resolved after IV fluids, COVID-19 negative Chest x-ray shows no pneumonia Review of Systems Review of Systems: Yes all other systems are reviewed and are negative [facility] Medical History Bipolar disorder Chronic post-traumatic stress disorder (PTSD) COPD (chronic obstructive pulmonary disease) Diabetes mellitus type 2 in obese Hypertension Family History Other Family history non-contributory Social History Household Members: Spouse and Children Housing: Apartment Alcohol intake: current Alcohol intake frequency: 3 or more drinks per day Patient Tobacco Use Status: Current everyday Tobacco user Tobacco use type: Cigarette Substance Use Type: Opiates Advance Directives: No Advance Directives Information Provided: No service: No Current occupational status: disabled Meds Allergies Allergy/AdvReac Type Severity Reaction Status Date / Time No Known Allergies Allergy Verified 10/04/21 09:10 [No Known Allergies*] Active Medications: Current Medications Azithromycin 500 mg/ Sodium (Chloride) 250 mls @ 125 mls/hr IV ONCE ONE Stop: 07/19/22 01:57 Last Admin: 07/19/22 00:45 Dose: 125 mls/hr Home Medications Medication Instructions Recorded Confirmed Last Taken Type albuterol sulfate 90 mcg/actuation 2 inh inhalation Q4H PRN Shortness 09/13/20 03/12/22 09/13/20 History aerosol inhaler (ProAir HFA) Of Breath 0000 furosemide 20 mg tablet 20 mg PO DAILY@0730 PRN Weight Gain 09/13/20 03/12/22 09/12/20 History 0800 lisinopril 2.5 mg tablet 1 tab PO DAILY 09/13/20 03/12/22 03/11/22 History atorvastatin 10 mg tablet 1 tab PO DAILY 03/12/22 03/12/22 03/11/22 History metformin 1,000 mg tablet 1 tab PO BID 03/12/22 03/12/22 03/11/22 History mirtazapine 7.5 mg tablet 1 tab PO BEDTIME 03/12/22 03/12/22 Unknown History Physical Exam Vital Signs and Narrative: Vital Signs: Last Vital Signs Temp 98.5 F 07/18/22 20:31 Pulse 73 07/19/22 00:30 Resp 21 H 07/19/22 00:30 BP 173/71 H 07/19/22 00:30 Pulse Ox 90 L 07/19/22 00:30 O2 Del Method 07/19/22 00:30 O2 Flow Rate 2 07/19/22 00:30 BMI result Body Mass Index 28.3 Const: General: cooperative and no acute distress Orientation/consciousness: patient oriented x3 Eyes: General: appearance normal, both eyes and all related structures Pupils: Equal, round and reactive pupils present Resp: Other: crackles bilaterally Effort & Inspection: normal respiratory effort Cardio: Rate: regular rate Rhythm: regular rhythm GI: Palpation (GI): Soft to palpation Auscultation: normal bowel sounds Skin: General skin exam: no rashes or lesions noted Neuro: General: patient oriented x3 Cranial nerves: Yes Equal, round and reactive pupils present Cognition (Neuro): normal cognition Extrem: General: Yes normal to inspection and Yes no pedal edema Results Labs CBC and Chem 7: 07/18/22 21:01 07/18/22 21:01 Labs: Laboratory Results - last 24 hr 07/18/22 07/18/22 07/18/22 21:01 21:01 21:01 MCV 94.5 MCH 31.8 MCHC 33.7 RDW 11.9 Plt Count 284 MPV 10.2 Immature Gran % (Auto) 0.4 Neut % (Auto) 75.2 H Lymph % (Auto) 16.8 L [place] % (Auto) 6.7 Eos % (Auto) 0.3 Baso % (Auto) 0.6 Lymph # (Auto) 2.8 [place] # (Auto) 1.1 Eos # (Auto) 0.1 Baso # (Auto) 0.1 Abs Immat Gran (auto) 0.07 H Absolute Neuts (auto) 12.6 H Absolute Nucleated RBC 0.000 Nucleated RBC % (auto) 0.0 PT 11.7 INR 1.0 VBG pH VBG pCO2 VBG pO2 VBG HCO3 VBG O2 Saturation VBG Base Excess Anion Gap 20 Estim Creat Clear Calc 66.0 Estimated GFR > 60 Random Glucose 247 H Lactic Acid Lactic Acid F/U @ 2Hr Calcium 9.3 Total Bilirubin 0.8 Direct Bilirubin 0.4 AST 29 D ALT 31 Alkaline Phosphatase 58 Troponin I High Sens B-Natriuretic Peptide Total Protein 7.3 Albumin 4.6 COVID-19 (KEYANNA) COVID-19 Adstrix Com 07/18/22 07/18/22 07/18/22 21:01 21:01 21:10 MCV MCH MCHC RDW Plt Count MPV Immature Gran % (Auto) Neut % (Auto) Lymph % (Auto) [place] % (Auto) Eos % (Auto) Baso % (Auto) Lymph # (Auto) [place] # (Auto) Eos # (Auto) Baso # (Auto) Abs Immat Gran (auto) Absolute Neuts (auto) Absolute Nucleated RBC Nucleated RBC % (auto) PT INR VBG pH VBG pCO2 VBG pO2 VBG HCO3 VBG O2 Saturation VBG Base Excess Anion Gap Estim Creat Clear Calc Estimated GFR Random Glucose Lactic Acid 3.8 H* Lactic Acid F/U @ 2Hr Calcium Total Bilirubin Direct Bilirubin AST ALT Alkaline Phosphatase Troponin I High Sens 6.5 D B-Natriuretic Peptide 36 Total Protein Albumin COVID-19 (KEYANNA) Negative COVID-19 Adstrix Com See Note 07/18/22 07/18/22 21:10 23:26 MCV MCH MCHC RDW Plt Count MPV Immature Gran % (Auto) Neut % (Auto) Lymph % (Auto) [place] % (Auto) Eos % (Auto) Baso % (Auto) Lymph # (Auto) [place] # (Auto) Eos # (Auto) Baso # (Auto) Abs Immat Gran (auto) Absolute Neuts (auto) Absolute Nucleated RBC Nucleated RBC % (auto) PT INR VBG pH 7.33 VBG pCO2 46 VBG pO2 94 VBG HCO3 24 VBG O2 Saturation 98.0 VBG Base Excess -1.3 Anion Gap Estim Creat Clear Calc Estimated GFR Random Glucose Lactic Acid Lactic Acid F/U @ 2Hr 1.7 Calcium Total Bilirubin Direct Bilirubin AST ALT Alkaline Phosphatase Troponin I High Sens B-Natriuretic Peptide Total Protein Albumin COVID-19 (KEYANNA) COVID-19 Clin Com Imaging Radiologist's Impressions: Impressions Chest X-Ray 07/18/22 21:11 IMPRESSION: Stable diffuse prominence of interstitium may reflect bronchitis an/or chronic airways disease. No focal consolidation. Assessment and Plan (1) Acute exacerbation of chronic obstructive airways disease: Status: Acute (2) Acute respiratory failure with hypoxia: Status: Acute (3) Anxiety: Status: Acute Plan 57-year-old female with past medical history of COPD presents to the hospital with increased shortness of breath, cough, sputum production found to be hypoxic # acute hypoxic respiratory failure - secondary to COPD exacerbation - has evidence of possible bronchitis with no evidence of pneumonia - COVID-19 negative - will obtain viral panel - COPD treatment with Solu-Medrol and DuoNeb # COPD exacerbation - acute - likely secondary to viral infection - associated with hypoxia - no evidence of pneumonia - will treat with IV Solu-Medrol, DuoNeb - monitor respiratory status - wean O2 office tolerated # anxiety - hydroxyzine p.r.n. # PTSD/bipolar - continue home was stabilizers # HTN - continue antihypertensives # diabetes - low-dose sliding scale insulin - diabetic diet DVT prophylaxis: Lovenox Pt will require a minimum 2 night hospital stay for oxygen support, as well as COPD treatment with IV Solu-Medrol and around the clock breathing treatments Quality Stroke Does the patient have a stroke diagnosis?: No VTE Prior VTE?: No VTE Risk Level:: Medical - moderate - high VTE Device Contraindication: Treatment Not Indicated VTE Drug Contraindication: N/A - Med Ordered
[2022-07-19] MEDS: Enoxaparin Sodium 40 MG/0.4 ML SYRINGE SUBCUT (03:25)
[2022-07-19] MEDS: hydrOXYzine HCL 25 MG TABLET PO (05:26)
[2022-07-19 06:51] LABS: Basophils Percent Auto 0.2 % (0-2); Eosinophils Percent Auto 0.1 % (0-4); Hematocrit 38.5 % (37.0-47.0); Hemoglobin 12.8 g/dl (12.0-16.0); Imm Gran Abs Auto 0.04 X10*3/uL (0.00-0.03); Imm Gran Pct Auto 0.5 % (0.0-0.4); Lymphocytes Absolute Auto 0.6 X10*3/uL (1.2-4.9); Lymphocytes Percent Auto 6.7 % (20-40); MANUAL DIFF FLAG SCAN; Mean Corpuscular HGB Conc 33.2 g/dl (31.0-35.0); Mean Corpuscular Hemoglobin 32.1 pg (27.0-33.0); Mean Corpuscular Volume 96.5 fL (80.0-98.0); Mean Platelet Volume 10.6 fL (9.4-12.3); Monocytes Absolute Auto 0.1 X10*3/uL (0.1-1.2); Monocytes Percent Auto 0.6 % (2-11); Neutrophils Absolute Auto 8.1 x10*3/uL (2.0-8.3); Neutrophils Percent Auto 91.9 % (45-73); Platelet Count 248 X10*3/uL (160-400); Red Blood Count 3.99 X10*6/uL (4.20-5.50); Red Cell Distribution Width 11.8 % (11.0-16.0); SCAN SMEAR FLAG 1; White Blood Count 8.9 X10*3/uL (4.8-10.8)
[2022-07-19 07:15] LABS: Anion Gap 17 (12-20); Blood Urea Nitrogen 9 mg/dL (9-16); Calcium 8.7 mg/dL (8.4-10.2); Carbon Dioxide 25 mmol/L (22-29); Chloride 98 mmol/L (96-108); Creatinine Clr Calc Pharmacy 69.8; Estimated Glomerular Filt Rate > 60; Glucose Random 325 mg/dL (60-115); Potassium 4.3 mmol/L (3.3-5.1); Sodium 136 mmol/L (135-145)
[2022-07-19 07:26] LABS: Glucose, Whole Blood 265 mg/dL (60-115)
[2022-07-19 07:28] LABS: SLIDE REVIEW VERIFIED
[2022-07-19] MEDS: Albuterol/Iprat 2.5/0.5MG 3 ML AMPUL.NEB INHALE ×2 (08:07→11:15)
[2022-07-19] MEDS: Insulin Lispro 100 UNIT/ML 3 ML VIAL SUBCUT ×2 (09:13→11:39)
[2022-07-19] MEDS: 0.9 % Sodium Chloride Flush 3 ML SYRINGE IVFLUSH (09:13)
--- NOTE | 2022-07-19 09:30 | PHA.MEDREC ---
Pharmacy Consult ? Medication Reconciliation Pharmacy has completed the medication reconciliation. Patient reports that PCP took them off of all medications, except metformin and furosemide. Patient states PCP may take them off furosemide, but patient attests to putting themselves back on furosemide. Patient is still taking all inhalers.
--- NOTE | 2022-07-19 09:55 | P.DS_ITS ---
DS: Providers Provider Date of Service: 07/19/22 Date of admission: 07/19/22 01:08 Primary care physician: Unknown Physician DS: Diagnosis Discharge Diagnosis (1) Acute exacerbation of chronic obstructive airways disease: Status: Acute (2) Acute respiratory failure with hypoxia: Status: Acute (3) Anxiety: Status: Acute DS: Summary Hospital Course Hospital Course: Patient was admitted earlier for acute exacerbation of COPD with initial hypoxia, no evidence of infection, she was treated with IV steroid, bronchodilators by Neb and made rapid imprvement and feeling better, O2 is n ormal on room air. Lungs are clear. . O2 sat is now 95 on room and after ambulation, 99without distress. I advised againts smoking. She will discharged with oral Prednisone for 5 days. Azithromycin for bronchitis and to follow up with PCP. She feels well and comfortable going home. Time Spent with Patient Time attestation: Total time spent providing and/or coordinating discharge services: Discharge coordination time: Greater than 30 minutes Quality: Safe Use of Opioids Does Pt have an Active Cancer Diagnosis on the Problem List?: No Quality: Stroke Does the patient have a stroke diagnosis?: No Physical Exam Vital Signs: Vital Signs: Last Vital Signs Temp 97.9 F 07/19/22 07:28 Pulse 63 07/19/22 08:10 Resp 18 07/19/22 08:10 BP 145/73 H 07/19/22 07:28 Pulse Ox 99 07/19/22 07:28 O2 Del Method 07/19/22 07:28 O2 Flow Rate 1 07/19/22 07:28 BMI result Body Mass Index 28.3 DS: Data Data Completed and Pending Labs on day of discharge: Laboratory Results - last 24 hr 07/18/22 07/18/22 07/18/22 21:01 21:01 21:01 WBC 16.7 H RBC 4.34 Hgb 13.8 Hct 41.0 MCV 94.5 MCH 31.8 MCHC 33.7 RDW 11.9 Plt Count 284 MPV 10.2 Immature Gran % (Auto) 0.4 Neut % (Auto) 75.2 H Lymph % (Auto) 16.8 L [place] % (Auto) 6.7 Eos % (Auto) 0.3 Baso % (Auto) 0.6 Lymph # (Auto) 2.8 [place] # (Auto) 1.1 Eos # (Auto) 0.1 Baso # (Auto) 0.1 Abs Immat Gran (auto) 0.07 H Absolute Neuts (auto) 12.6 H Absolute Nucleated RBC 0.000 Nucleated RBC % (auto) 0.0 Smear Tech's Comments PT 11.7 INR 1.0 VBG pH VBG pCO2 VBG pO2 VBG HCO3 VBG O2 Saturation VBG Base Excess Sodium 135 Potassium 3.4 D Chloride 93 L Carbon Dioxide 25 Anion Gap 20 BUN 8 L Creatinine 0.92 Estim Creat Clear Calc 66.0 Estimated GFR > 60 POC Glucose Random Glucose 247 H Lactic Acid Lactic Acid F/U @ 2Hr Calcium 9.3 Total Bilirubin 0.8 Direct Bilirubin 0.4 AST 29 D ALT 31 Alkaline Phosphatase 58 Troponin I High Sens B-Natriuretic Peptide Total Protein 7.3 Albumin 4.6 COVID-19 ([facility]) COVID-[place] Com Resp Virus Cult Rapid 07/18/22 07/18/22 07/18/22 21:01 21:01 21:10 WBC RBC Hgb Hct MCV MCH MCHC RDW Plt Count MPV Immature Gran % (Auto) Neut % (Auto) Lymph % (Auto) [place] % (Auto) Eos % (Auto) Baso % (Auto) Lymph # (Auto) [place] # (Auto) Eos # (Auto) Baso # (Auto) Abs Immat Gran (auto) Absolute Neuts (auto) Absolute Nucleated RBC Nucleated RBC % (auto) Smear Tech's Comments PT INR VBG pH VBG pCO2 VBG pO2 VBG HCO3 VBG O2 Saturation VBG Base Excess Sodium Potassium Chloride Carbon Dioxide Anion Gap BUN Creatinine Estim Creat Clear Calc Estimated GFR POC Glucose Random Glucose Lactic Acid 3.8 H* Lactic Acid F/U @ 2Hr Calcium Total Bilirubin Direct Bilirubin AST ALT Alkaline Phosphatase Troponin I High Sens 6.5 D B-Natriuretic Peptide 36 Total Protein Albumin COVID-19 ([facility]NA) Negative COVID-[place] Com See Note Resp Virus Cult Rapid 07/18/22 07/18/22 07/19/22 21:10 23:26 06:24 WBC RBC Hgb Hct MCV MCH MCHC RDW Plt Count MPV Immature Gran % (Auto) Neut % (Auto) Lymph % (Auto) [place] % (Auto) Eos % (Auto) Baso % (Auto) Lymph # (Auto) [place] # (Auto) Eos # (Auto) Baso # (Auto) Abs Immat Gran (auto) Absolute Neuts (auto) Absolute Nucleated RBC Nucleated RBC % (auto) Smear Tech's Comments PT INR VBG pH 7.33 VBG pCO2 46 VBG pO2 94 VBG HCO3 24 VBG O2 Saturation 98.0 VBG Base Excess -1.3 Sodium Potassium Chloride Carbon Dioxide Anion Gap BUN Creatinine Estim Creat Clear Calc Estimated GFR POC Glucose Random Glucose Lactic Acid Lactic Acid F/U @ 2Hr 1.7 Calcium Total Bilirubin Direct Bilirubin AST ALT Alkaline Phosphatase Troponin I High Sens B-Natriuretic Peptide Total Protein Albumin COVID-19 ([facility]) COVID-19 Clin Com Resp Virus Cult Rapid Cancelled 07/19/22 07/19/22 07/19/22 06:24 06:28 06:28 WBC 8.9 RBC 3.99 L Hgb 12.8 Hct 38.5 MCV 96.5 MCH 32.1 MCHC 33.2 RDW 11.8 Plt Count 248 MPV 10.6 Immature Gran % (Auto) 0.5 H Neut % (Auto) 91.9 H Lymph % (Auto) 6.7 L [place] % (Auto) 0.6 L Eos % (Auto) 0.1 Baso % (Auto) 0.2 Lymph # (Auto) 0.6 L [place] # (Auto) 0.1 Eos # (Auto) 0.0 Baso # (Auto) 0.0 Abs Immat Gran (auto) 0.04 H Absolute Neuts (auto) 8.1 Absolute Nucleated RBC 0.000 Nucleated RBC % (auto) 0.0 Smear Tech's Comments VERIFIED PT INR VBG pH VBG pCO2 VBG pO2 VBG HCO3 VBG O2 Saturation VBG Base Excess Sodium 136 Potassium 4.3 D Chloride 98 Carbon Dioxide 25 Anion Gap 17 BUN 9 Creatinine 0.87 Estim Creat Clear Calc 69.8 Estimated GFR > 60 POC Glucose Random Glucose 325 H Lactic Acid Lactic Acid F/U @ 2Hr Calcium 8.7 D Total Bilirubin Direct Bilirubin AST ALT Alkaline Phosphatase Troponin I High Sens B-Natriuretic Peptide Total Protein Albumin COVID-19 ([facility]) COVID-19 Clin Com Resp Virus Cult Rapid Cancelled 07/19/22 07:15 WBC RBC Hgb Hct MCV MCH MCHC RDW Plt Count MPV Immature Gran % (Auto) Neut % (Auto) Lymph % (Auto) [place] % (Auto) Eos % (Auto) Baso % (Auto) Lymph # (Auto) [place] # (Auto) Eos # (Auto) Baso # (Auto) Abs Immat Gran (auto) Absolute Neuts (auto) Absolute Nucleated RBC Nucleated RBC % (auto) Smear Tech's Comments PT INR VBG pH VBG pCO2 VBG pO2 VBG HCO3 VBG O2 Saturation VBG Base Excess Sodium Potassium Chloride Carbon Dioxide Anion Gap BUN Creatinine Estim Creat Clear Calc Estimated GFR POC Glucose 265 H Random Glucose Lactic Acid Lactic Acid F/U @ 2Hr Calcium Total Bilirubin Direct Bilirubin AST ALT Alkaline Phosphatase Troponin I High Sens B-Natriuretic Peptide Total Protein Albumin COVID-19 ([facility]) COVID-19 Clin Com Resp Virus Cult Rapid Discharge Plan Discharge Anticipated Discharge Date/Time: 07/19/22 09:59 Patient Disposition: Home, Self-Care Discharge Diagnosis: Acute COPD exacerbation Referrals: Physician,Unknown J [Primary Care Provider] - 1 Week Discharge Medications: New prednisone 20 mg tablet 20 mg PO DAILY Qty: 8 0RF azithromycin 250 mg tablet 250 mg PO DAILY 4 Days Qty: 4 0RF Rx Instructions: start on day 2 of therapy Continued furosemide 20 mg tablet 20 mg PO DAILY@0730 PRN (Reason: Weight Gain) albuterol sulfate [ProAir HFA] 90 mcg/actuation HFA aerosol inhaler 2 inh inhalation Q4H PRN (Reason: Shortness Of Breath) metformin 1,000 mg tablet 1 tab PO BID fluticasone furoate-vilanterol [Breo Ellipta] 100-25 mcg/dose blister with device 1 inh inhalation DAILY Qty: 60 0RF Spiriva with HandiHaler 18 mcg capsule, w/inhalation device 1 cap inhalation DAILY ibuprofen 200 mg Tablet 400 mg PO Q8H PRN (Reason: Pain) calcium carbonate 500 mg calcium (1,250 mg) Tablet,Chewable 500 mg PO DAILY PRN (Reason: Acid Reflux) Discharge Orders: Discharge Order (Routine); Ordered 07/19/22 Ordered By: Otilio Ferro Diet: Advance to usual diet Activity on Discharge: As tolerated Stand Alone Forms: Patient Portal Discharge page Care Plan Goals: Full recovery from copd exacerbation Health Concerns: copd, smoking Plan of Treatment: Take Prednisone as directed and follow up with your Doctor in a week take azithromycyin for bronhitis take inhalers as usual stop smoking follow up with your Doctor in a week, call for appointment Assessment: as above
[2022-07-19 10:33] LABS: Adenovirus PCR Not Detected (Not Detect.); Bordetella parapertussis PCR Not Detected (Not Detect.); Bordetella pertussis PCR Not Detected (Not Detect.); Chlamydia pneumoniae PCR Not Detected (Not Detect.); Coronavirus 229E PCR Not Detected (Not Detect.); Coronavirus HKU1 PCR Not Detected (Not Detect.); Coronavirus NL63 PCR Not Detected (Not Detect.); Coronavirus OC43 PCR Not Detected (Not Detect.); Human metapneumovirus PCR Not Detected (Not Detect.); Influenza A PCR Not Detected (Not Detect.); Influenza B PCR Not Detected (Not Detect.); Mycoplasma pneumoniae PCR Not Detected (Not Detect.); Parainfluenza 1 PCR Not Detected (Not Detect.); Parainfluenza 2 PCR Not Detected (Not Detect.); Parainfluenza 3 PCR Not Detected (Not Detect.); Parainfluenza 4 PCR Not Detected (Not Detect.); RSV PCR Not Detected (Not Detect.); Rhino/Enterovirus PCR Not Detected (Not Detect.); SARS-CoV-2 PCR Not Detected (Not Detect.)
--- NOTE | 2022-07-19 11:19 | MHC.CM.PN ---
pt dcd home no skilled services ordered by
[2022-07-19 11:27] LABS: Glucose, Whole Blood 257 mg/dL (60-115)
== END 2022-07-19 13:00 | disposition home or self-care (01) | DRG 140 ==
LOC: HO.ED 07-19 00:36 → HO.EDOVER 07-19 01:13
PROVIDERS: Admitting Provider Internal Medicine; Emergency Provider Emergency Medicine; Visit Provider Internal Medicine
DX: J44.1 Chronic obstructive pulmonary disease with (acute) exacerbation (principal); J96.01 Acute respiratory failure with hypoxia; E11.9 Type 2 diabetes mellitus without complications; F17.210 Nicotine dependence, cigarettes, uncomplicated; F41.9 Anxiety disorder, unspecified; F43.10 Post-traumatic stress disorder, unspecified; F31.9 Bipolar disorder, unspecified; Z20.822 Contact with and (suspected) exposure to COVID-19; Z71.6 Tobacco abuse counseling; Z79.51 Long term (current) use of inhaled steroids; Z79.84 Long term (current) use of oral hypoglycemic drugs; Z79.899 Other long term (current) drug therapy
CPT/HCPCS: 36415; 71045; 80048; 80076; 82803; 82947; 83605; 83880; 84484; 85025; 85610; 87040; 87140; 87254; 87633; 87635; 93005; 94640; 96361; 96365; 96375; 99218; 99285; J0456; J0696; J1650; J2250; J2930; J3475

== ENCOUNTER 2022-07-24 08:37 | Emergency (ER) | payer OTHER, SELFPAY ==
--- NOTE | ~2022-07-24 | CT_ITS ---
EXAMINATION: CT ABDOMEN AND PELVIS WITHOUT CONTRAST CLINICAL INFORMATION: Bilateral costovertebral pain. COMPARISON: None TECHNIQUE: Multidetector volumetric imaging was performed from the superior aspect of the liver through the pubic symphysis. Sagittal and coronal reformatted images were obtained on the technologist's workstation. This CT examination was performed using dose optimization techniques as appropriate, variously including the following: *Automated exposure control *Adjustment of mA and/or kV according to patient size (this includes techniques or standardized protocols for targeted exams where dose is matched to indication/reason for exam; i.e. extremities or head) *Use of iterative reconstruction technique DLP: 512 mGy-cm FINDINGS: LUNG BASES: The lung bases appear clear, with no evidence of inflammation or nodules. LIVER, GALLBLADDER, AND BILIARY TREE: The liver measures approximately 19 cm in sagittal dimension. It appears unremarkable in attenuation. No focal hepatic lesion or biliary ductal dilatation is appreciated. Unremarkable appearance of the gallbladder. PANCREAS: Unremarkable SPLEEN: Unremarkable ADRENAL GLANDS: Less than 1.5 cm benign bilateral adrenal adenomata demonstrating Hounsfield unit density of approximately 2 or less. 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 The kidneys otherwise appear unremarkable in size, shape, and attenuation. No hydronephrosis, hydroureter, or calculi seen. BLADDER: Unremarkable GASTROINTESTINAL TRACT: Suspect small hiatus hernia. The small and large bowel appear unremarkable. No diverticulosis. Normal-appearing distal ileum and vermiform appendix. ABDOMINAL WALL: No significant hernia is appreciated. LYMPH NODES: No evidence of adenopathy by size criteria. 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 PELVIC VISCERA: Unremarkable OSSEOUS STRUCTURES: Disc degenerative changes of the lower lumbar spine. CT/CT abdomen pelvis wo IV con IMPRESSION: No acute finding.
--- NOTE | ~2022-07-24 | XR_ITS ---
EXAMINATION: XR CHEST CLINICAL INFORMATION: Shortness of breath. COMPARISON: 03/12/2022 and 07/18/2022 TECHNIQUE: Frontal view of the chest was obtained. FINDINGS: Multiple EKG wires overlie the patient. The bronchial schwab appear to be chronically thickened. Query if there is any history of asthma, cigarette smoking or bronchitis. The lungs are adequately expanded and clear. No acute pulmonary findings. No airspace disease or pleural effusion. Cardiac silhouette has normal size and contour. The visualized bones, and upper abdomen, are unremarkable. XR/XR chest 1V IMPRESSION: There appears to be chronic, mild thickening of bronchial schwab. No acute cardiopulmonary findings compared to 07/18/2022.
[2022-07-24 08:48] VITALS: BP 186/78; PULSE 84; PULSE 88; RESP 17; O2SAT 96; O2SAT 97; BMI 28.3
[2022-07-24 08:59] VITALS: BP 152/65; PULSE 84; RESP 13; O2SAT 96
--- NOTE | 2022-07-24 09:05 | ECG_ITS ---
Test Reason : Chest tightness Blood Pressure : / mmHG Vent. Rate : 079 BPM Atrial Rate : 079 BPM P-R Int : 144 ms QRS Dur : 078 ms QT Int : 418 ms P-R-T Axes : 077 047 060 degrees QTc Int : 479 ms Normal sinus rhythm Normal ECG When compared with ECG of 18-JUL-2022 21:28, No significant change was found Referred By: Generic ED Physician Electronically Signed By:JAYLYN DAN
--- NOTE | 2022-07-24 09:24 | ED.GENADULT ---
HPI - General Adult General Chief complaint: Dyspnea Stated complaint: FLANK PAIN Time Seen by Provider: 07/24/22 09:24 Source: patient Mode of arrival: ambulatory Limitations: no limitations History of Present Illness HPI narrative: Patient is a 57 year old female presenting to the emergency department today with increased anxiety and bilateral kidney pain. Patient states that lately she has noticed her anxiety increasing and that she is having bilateral kidney pain. Patient states that she is on a wait list for anti-anxiety medications. Patient denies any dizziness, lightheadedness, abdominal pain, nausea, vomiting, fever, chills, blurry vision, double vision, loss of vision, chest pain, difficulty breathing, shortness of breath, back pain, night sweats, pain with urination, increased urinary frequency, increased urinary urgency, blood in her urine or stool, syncope or a near syncopal episode, recent trauma or falls, bowel incontinence, bladder incontinence, bowel retention, bladder retention, or any other complaints at this time. Patient states that she has a history of COPD and CHF. Patient states she has lower leg swelling but that is consistent for her. Onset (ago): day(s) Severity: mild Severity scale (1-10): 2 Relieving factors: none Exacerbating factors: none Associated symptoms: denies other symptoms Treatments prior to arrival: none Related Data Home Medications Medication Instructions Recorded Confirmed albuterol sulfate 90 mcg/actuation 2 inh inhalation Q4H PRN Shortness 09/13/20 07/19/22 aerosol inhaler (ProAir HFA) Of Breath furosemide 20 mg tablet 20 mg PO DAILY@0730 PRN Weight Gain 09/13/20 07/19/22 metformin 1,000 mg tablet 1 tab PO BID 03/12/22 07/19/22 calcium carbonate 500 mg calcium 500 mg PO DAILY PRN Acid Reflux 07/19/22 07/19/22 (1,250 mg) chewable tablet ibuprofen 200 mg tablet 400 mg PO Q8H PRN Pain 07/19/22 07/19/22 tiotropium bromide 18 mcg capsule 1 cap inhalation DAILY 07/19/22 07/19/22 with inhalation device (Spiriva with HandiHaler) Previous Rx's Medication Instructions Recorded fluticasone furoate 100 1 inh inhalation DAILY #60 ea 03/13/22 mcg-vilanterol 25 mcg/dose inhalation powder (Breo Ellipta) azithromycin 250 mg tablet 250 mg PO DAILY 4 days #4 tabs 07/19/22 prednisone 20 mg tablet 20 mg PO DAILY #8 tabs 07/19/22 Allergies Allergy/AdvReac Type Severity Reaction Status Date / Time No Known Allergies Allergy Verified 10/04/21 09:10 [No Known Allergies*] Review of Systems Constitutional: Constitutional: Reports no additional constitutional complaints, Denies chills, Denies fever(s) and Denies night sweats Eyes: Eyes: Reports no additional eye complaints, Denies blurry vision, Denies change in vision, Denies diplopia, Denies eye discharge, Denies loss of vision and Denies eye pain ENT: Denies dizziness Cardiovascular: Cardiovascular: Reports no additional cardiovascular complaints, Denies chest pain, Denies lightheadedness, Denies Loss of Consciousness and Denies dyspnea Respiratory: Respiratory: Reports no additional respiratory complaints and Denies dyspnea Gastrointestinal: Gastrointestinal: Reports no additional gastrointestinal complaints, Denies abdominal pain, Denies melena, Denies hematochezia, Denies change in bowel habits and Denies change in stool character Genitourinary: Genitourinary: Denies hematuria, Denies urinary frequency, Denies dysuria, Denies urinary incontinence, Denies urinary hesitancy and Denies urinary urgency Comments: bilateral kidney pain Musculoskeletal: Musculoskeletal: Reports no additional musculoskeletal complaints, Denies numbness and Denies tingling Neurologic: Denies dizziness, Denies loss of vision, Denies numbness and Denies tingling Psychiatric: Psychiatric: Reports no additional psychiatric complaints and Reports anxiety Endocrine: Endocrine: Reports no additional endocrine complaints Hematologic/Lymphatic: Hematologic/Lymphatic: Reports no additional hematologic/lymphatic complaints Allergic/Immunologic: Allergic/Immunologic: Reports no additional allergic/immunologic complaints [facility] Past Medical History Attestation statement: The following information was validated with the patient. Source: old records reviewed Medical History Bipolar disorder Chronic post-traumatic stress disorder (PTSD) COPD (chronic obstructive pulmonary disease) Diabetes mellitus type 2 in obese Hypertension Family History Family History Other Family history non-contributory Social History Social History Household Members: Spouse and Children Housing: Apartment Alcohol intake: current Alcohol intake frequency: 3 or more drinks per day Patient Tobacco Use Status: Current everyday Tobacco user Tobacco use type: Cigarette Substance Use Type: Opiates Advance Directives: Yes Advance Directives Information Provided: Yes Advance Directives on File: No service: No Current occupational status: disabled Physical Exam ED Vital Signs: Vital Signs - 24 hr 07/24/22 08:48 07/24/22 08:59 07/24/22 09:34 Temperature 98.1 F Pulse Rate 84 84 78 Respiratory Rate 17 13 14 Blood Pressure 152/65 H 152/68 H Pulse Oximetry 96 96 93 Oxygen Delivery Method Room Air Room Air Room Air 07/24/22 11:04 07/24/22 12:31 Temperature 97.9 F Pulse Rate 70 73 Respiratory Rate 13 13 Blood Pressure 119/64 144/68 H Pulse Oximetry 92 95 Oxygen Delivery Method Room Air Room Air BMI result Body Mass Index 28.3 Const General: cooperative, no acute distress, alert and awake Nutritional Appearance: well nourished Orientation/consciousness: patient oriented x3 Limitations: no limitations HENMT Head: Yes normal to inspection and Yes atraumatic Ears: hearing grossly normal bilaterally and external ears normal General nose exam: Normal external nose present, no nasal discharge noted and no epistaxis Face and sinus: Yes normal facial exam, No abrasion and No laceration Mouth: Normal oral and palatal mucosa present, no drooling and no muffled voice Eyes General: appearance normal, both eyes and all related structures Periorbital: periorbital findings normal Eyelids: Yes eyelids normal Conjunctivae: conjunctivae normal Pupils: Equal, round and reactive pupils present EOM: EOMs intact bilaterally Neck Neck: Yes normal visual inspection, Yes full ROM and Yes no lymphadenopathy Chest Chest palpation & inspection: normal inspection of the chest Resp Effort & Inspection: normal respiratory effort and able to speak in complete sentences Auscultation: clear to auscultation bilaterally Cardio Rate: regular rate Rhythm: regular rhythm GI Inspection: Yes normal to inspection Neuro General: patient oriented x3 and moves all extremities Cranial nerves: Yes Equal, round and reactive pupils present Cognition (Neuro): normal cognition Motor exam (neuro): 5/5 motor strength present throughout Sensory Exam: Normal double simultaneous stimulation for sensation Coordination: [id number] test normal Extrem Other: bilateral 2+ pedal edema, chronic for this patient General: Yes full ROM and Yes capillary refill normal Psych Appearance: grossly normal Mental Status: mental status grossly normal Affect: normal affect Attitude: cooperative Thought process: Normal thought process present Thought content: Normal thought content present Insight: Good insight present (Psych) Medical Decision Making MDM Narrative Medical decision making narrative: Patient is a 57 year old female presenting to the emergency department today with bilateral CVA tenderness and increased anxiety. Patient's physical exam was unremarkable. Patient's blood work showed a slightly decreased magnesium of 1.4 and sodium of 132 with an elevated blood sugar of 359. Sodium adjusted for the elevated sugar would be normal at 136. Patient's white blood cell count was elevated at 12.6 but I believe that to be secondary to a stress reaction and not an infectious process. Patient is not septic and sepsis is not on my differential. Patient's urine showed no acute process. Patient's EKG was unremarkable. Patient's chest x-ray and abdominal / pelvis CT scan showed no acute process. I explained my physical exam findings as well as all test results to the patient. I answered all questions asked by the patient. Patient received IV Magnesium and PO Ativan while in the department. I stressed the importance of the patient taking her medication as prescribed. I stressed the importance of the patient following up with her primary care provider. I stressed the importance of the patient returning to the emergency department immediately if her symptoms were to worsen or if she were to develop any dizziness, shortness of breath, difficulty breathing, chest pain, blurry vision, loss of vision, nausea, vomiting, abdominal pain, fever, chills, back pain, or any other complaints. Patient verbalized agreement and understanding with this treatment plan and discharge. Medical Records Medical records reviewed: Yes I reviewed the patient's medical records. Lab Data Lab results reviewed: Yes I reviewed the patient's lab results. Result diagrams: 07/24/22 09:58 07/24/22 09:58 Labs: Lab Results 07/24/22 07/24/22 07/24/22 Range/Units 09:58 09:58 09:58 WBC 12.6 H (4.8-10.8) X10*3/uL RBC 3.99 L (4.20-5.50) X10*6/uL Hgb 12.7 (12.0-16.0) g/dl Hct 36.9 L (37.0-47.0) % MCV 92.5 (80.0-98.0) fL MCH 31.8 (27.0-33.0) pg MCHC 34.4 (31.0-35.0) g/dl RDW 11.7 (11.0-16.0) % Plt Count 266 (160-400) X10*3/uL MPV 10.1 (9.4-12.3) fL Immature Gran % (Auto) 0.9 H (0.0-0.4) % Neut % (Auto) 89.9 H (45-73) % Lymph % (Auto) 7.2 L (20-40) % [place] % (Auto) 1.8 L (2-11) % Eos % (Auto) 0.0 (0-4) % Baso % (Auto) 0.2 (0-2) % Lymph # (Auto) 0.9 L (1.2-4.9) X10*3/uL [place] # (Auto) 0.2 (0.1-1.2) X10*3/uL Eos # (Auto) 0.0 (0.0-0.4) X10*3/uL Baso # (Auto) 0.0 (0.0-0.2) X10*3/uL Abs Immat Gran (auto) 0.11 H (0.00-0.03) X10*3/uL Absolute Neuts (auto) 11.3 H (2.0-8.3) x10*3/uL Absolute Nucleated RBC 0.000 (0.0-0.012) X10*3/uL Nucleated RBC % (auto) 0.0 (0.0-0.2) /100WBC Sodium 132 L (135-145) mmol/L Potassium 3.6 (3.3-5.1) mmol/L Chloride 89 L (96-108) mmol/L Carbon Dioxide 27 (22-29) mmol/L Anion Gap 20 (12-20) BUN 9 (9-16) mg/dL Creatinine 1.10 (0.5-1.4) mg/dL Estim Creat Clear Calc 55.2 Estimated GFR 51 Random Glucose 359 H* (60-115) mg/dL Calcium 8.9 (8.4-10.2) mg/dL Magnesium 1.4 L* (1.6-2.6) mg/dL Total Bilirubin 0.6 (0.0-1.0) mg/dL AST 31 (5-31) U/L ALT 40 H (0-31) U/L Alkaline Phosphatase 60 (39-117) U/L Troponin I High Sens < 3.5 (<3.5-17.0) ng/L B-Natriuretic Peptide 22 (<100) pg/mL Total Protein 6.3 L (6.5-8.0) g/dL Albumin 4.1 (3.5-5.0) g/dL Urine Color Urine Appearance Urine pH (5.0-9.0) Ur Specific [place] (1.005-1.025) Urine Protein (Neg-Trace) mg/dL Urine Glucose (UA) (Negative) mg/dL Urine Ketones (Negative) mg/dL Urine Blood (Negative) Urine Nitrite (Negative) Ur Leukocyte Esterase (Negative) COVID-19 (KEYANNA) (Negative) COVID-19 Clin Com 07/24/22 07/24/22 Range/Units 09:58 12:36 WBC (4.8-10.8) X10*3/uL RBC (4.20-5.50) X10*6/uL Hgb (12.0-16.0) g/dl Hct (37.0-47.0) % MCV (80.0-98.0) fL MCH (27.0-33.0) pg MCHC (31.0-35.0) g/dl RDW (11.0-16.0) % Plt Count (160-400) X10*3/uL MPV (9.4-12.3) fL Immature Gran % (Auto) (0.0-0.4) % Neut % (Auto) (45-73) % Lymph % (Auto) (20-40) % [place] % (Auto) (2-11) % Eos % (Auto) (0-4) % Baso % (Auto) (0-2) % Lymph # (Auto) (1.2-4.9) X10*3/uL [place] # (Auto) (0.1-1.2) X10*3/uL Eos # (Auto) (0.0-0.4) X10*3/uL Baso # (Auto) (0.0-0.2) X10*3/uL Abs Immat Gran (auto) (0.00-0.03) X10*3/uL Absolute Neuts (auto) (2.0-8.3) x10*3/uL Absolute Nucleated RBC (0.0-0.012) X10*3/uL Nucleated RBC % (auto) (0.0-0.2) /100WBC Sodium (135-145) mmol/L Potassium (3.3-5.1) mmol/L Chloride (96-108) mmol/L Carbon Dioxide (22-29) mmol/L Anion Gap (12-20) BUN (9-16) mg/dL Creatinine (0.5-1.4) mg/dL Estim Creat Clear Calc Estimated GFR Random Glucose (60-115) mg/dL Calcium (8.4-10.2) mg/dL Magnesium (1.6-2.6) mg/dL Total Bilirubin (0.0-1.0) mg/dL AST (5-31) U/L ALT (0-31) U/L Alkaline Phosphatase (39-117) U/L Troponin I High Sens (<3.5-17.0) ng/L B-Natriuretic Peptide (<100) pg/mL Total Protein (6.5-8.0) g/dL Albumin (3.5-5.0) g/dL Urine Color Yellow Urine Appearance Clear Urine pH 5.0 (5.0-9.0) Ur Specific [place] <= 1.005 (1.005-1.025) Urine Protein Negative (Neg-Trace) mg/dL Urine Glucose (UA) 250 H (Negative) mg/dL Urine Ketones Negative (Negative) mg/dL Urine Blood Negative (Negative) Urine Nitrite Negative (Negative) Ur Leukocyte Esterase Negative (Negative) COVID-19 (KEYANNA) Negative (Negative) COVID-19 Clin Com See Note Imaging Data Chest x-ray: Attestation: I personally reviewed and interpreted this imaging study as follows: My impression: No acute process. Radiologist's impression: EXAMINATION: XR CHEST CLINICAL INFORMATION: Shortness of breath. COMPARISON: 03/12/2022 and 07/18/2022 TECHNIQUE: Frontal view of the chest was obtained. FINDINGS: Multiple EKG wires overlie the patient. The bronchial schwab appear to be chronically thickened. Query if there is any history of asthma, cigarette smoking or bronchitis. The lungs are adequately expanded and clear. No acute pulmonary findings. No airspace disease or pleural effusion. Cardiac silhouette has normal size and contour. The visualized bones, and upper abdomen, are unremarkable. XR/XR chest 1V IMPRESSION: There appears to be chronic, mild thickening of bronchial schwab. No acute cardiopulmonary findings compared to 07/18/2022. Dictated By: Kofi Sears MD Signed By: Electronically signed by Kofi Sears MD 07/24/[address] scan - abdomen: Attestation: I personally reviewed and interpreted this imaging study as follows: My impression: No acute process. Radiologist's impression: EXAMINATION: CT ABDOMEN AND PELVIS WITHOUT CONTRAST? CLINICAL INFORMATION: Bilateral costovertebral pain.? COMPARISON: None? TECHNIQUE: Multidetector volumetric imaging was performed from the superior aspect of the liver through the pubic symphysis. Sagittal and coronal reformatted images were obtained on the technologist's workstation.? This CT examination was performed using dose optimization techniques as appropriate, variously including the following: *Automated exposure control *Adjustment of mA and/or kV according to patient size (this includes techniques or standardized protocols for targeted exams where dose is matched to indication/reason for exam; i.e. extremities or head) *Use of iterative reconstruction technique DLP: 512 mGy-cm FINDINGS: LUNG BASES: The lung bases appear clear, with no evidence of inflammation or nodules.? LIVER, GALLBLADDER, AND BILIARY TREE: The liver measures approximately 19 cm in sagittal dimension. It appears unremarkable in attenuation. No focal hepatic lesion or biliary ductal dilatation is appreciated. Unremarkable appearance of the gallbladder.? PANCREAS: Unremarkable? SPLEEN: Unremarkable? ADRENAL GLANDS: Less than 1.5 cm benign bilateral adrenal adenomata demonstrating Hounsfield unit density of approximately 2 or less.? 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 The kidneys otherwise appear unremarkable in size, shape, and attenuation. No hydronephrosis, hydroureter, or calculi seen. ? BLADDER: Unremarkable? GASTROINTESTINAL TRACT: Suspect small hiatus hernia. The small and large bowel appear unremarkable. No diverticulosis. Normal-appearing distal ileum and vermiform appendix. ABDOMINAL WALL: No significant hernia is appreciated.? LYMPH NODES: No evidence of adenopathy by size criteria. 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 PELVIC VISCERA: Unremarkable OSSEOUS STRUCTURES: Disc degenerative changes of the lower lumbar spine.? CT/CT abdomen pelvis wo IV con IMPRESSION: ? No acute finding. Dictated By: Ruiz Latham Signed By: Electronically signed by Yeison 07/24/22 1108 ECG Data Attestation: I personally reviewed and interpreted this ECG as follows: Prior ECG tracings: available for review Interpretation: Vent. Rate: 079 BPM ? ? Atrial Rate: 079 BPM P-R Int: 144 ms? QRS Dur: 078 ms QT Int: 418 ms ? ? ? P-R-T Axes: 077 047 060 degrees QTc Int: 479 ms ? Normal sinus rhythm Normal ECG When compared with ECG of 18-JUL-2022 21:28, No significant change was found DD/ [id number] Discharge Plan Discharge Clinical Impression: Anxiety, Hypomagnesemia Patient Disposition: Home, Self-Care Instructions: Anxiety (ED) Additional Instructions: Follow up with your primary care provider. Return to the emergency department immediately if your symptoms worsen or if you develop any dizziness, shortness of breath, difficulty breathing, chest pain, blurry vision, loss of vision, nausea, vomiting, abdominal pain, fever, chills, back pain, or any other complaints. Prescriptions: No Action furosemide 20 mg tablet 20 mg PO DAILY@0730 PRN (Reason: Weight Gain) albuterol sulfate [ProAir HFA] 90 mcg/actuation HFA aerosol inhaler 2 inh inhalation Q4H PRN (Reason: Shortness Of Breath) metformin 1,000 mg tablet 1 tab PO BID fluticasone furoate-vilanterol [Breo Ellipta] 100-25 mcg/dose blister with device 1 inh inhalation DAILY Qty: 60 0RF Spiriva with HandiHaler 18 mcg capsule, w/inhalation device 1 cap inhalation DAILY ibuprofen 200 mg Tablet 400 mg PO Q8H PRN (Reason: Pain) calcium carbonate 500 mg calcium (1,250 mg) Tablet,Chewable 500 mg PO DAILY PRN (Reason: Acid Reflux) prednisone 20 mg tablet 20 mg PO DAILY Qty: 8 0RF azithromycin 250 mg tablet 250 mg PO DAILY 4 Days Qty: 4 0RF Rx Instructions: start on day 2 of therapy Referrals: [facility] [place] [facility] [place] Group] (Call to establish and follow up with a primary care provider. If you already have a primary care provider, please follow up with them. ) [facility] [place] [facility] [Provider Group] (Call to establish and follow up with a primary care provider. If you already have a primary care provider, please follow up with them. ) [facility] [place] [facility] [Provider Group] (Call to establish and follow up with a primary care provider. If you already have a primary care provider, please follow up with them. ) Interventions: ED Discharge Assessment Last Done: 07/24/22 13:54 Discharge Date/Time: 07/24/22 13:59 Print Language: Telugu
[2022-07-24 09:34] VITALS: BP 152/68; PULSE 78; RESP 14; TEMP 36.7; O2SAT 93
--- NOTE | 2022-07-24 09:44 | PC.NURSE ---
Pt is A/O X 3. Speech is clear, pupils PERRLA, respiration even, nonlabored, lung sounds clear bilat, heart sound regular, abdomen soft , nontender ,bowel sounds present .Skin pink, warm, dry . Move all extremities, bilat+2 pitting edema noted in both feet. Bed at lowest position, side rail up, call bethea within reach. PT/ aware of plan of care.
[2022-07-24 10:06] LABS: MANUAL DIFF FLAG NO
[2022-07-24 10:08] LABS: Basophils Percent Auto 0.2 % (0-2); Hematocrit 36.9 % (37.0-47.0); Hemoglobin 12.7 g/dl (12.0-16.0); Imm Gran Abs Auto 0.11 X10*3/uL (0.00-0.03); Imm Gran Pct Auto 0.9 % (0.0-0.4); Lymphocytes Absolute Auto 0.9 X10*3/uL (1.2-4.9); Lymphocytes Percent Auto 7.2 % (20-40); Mean Corpuscular HGB Conc 34.4 g/dl (31.0-35.0); Mean Corpuscular Hemoglobin 31.8 pg (27.0-33.0); Mean Corpuscular Volume 92.5 fL (80.0-98.0); Mean Platelet Volume 10.1 fL (9.4-12.3); Monocytes Absolute Auto 0.2 X10*3/uL (0.1-1.2); Monocytes Percent Auto 1.8 % (2-11); Neutrophils Absolute Auto 11.3 x10*3/uL (2.0-8.3); Neutrophils Percent Auto 89.9 % (45-73); Platelet Count 266 X10*3/uL (160-400); Red Blood Count 3.99 X10*6/uL (4.20-5.50); Red Cell Distribution Width 11.7 % (11.0-16.0); White Blood Count 12.6 X10*3/uL (4.8-10.8)
[2022-07-24 10:31] LABS: Alanine Aminotransferase 40 U/L (0-31); Albumin Level 4.1 g/dL (3.5-5.0); Alkaline Phosphatase 60 U/L (39-117); Anion Gap 20 (12-20); Aspartate Amino Transferase 31 U/L (5-31); Bilirubin Total 0.6 mg/dL (0.0-1.0); Blood Urea Nitrogen 9 mg/dL (9-16); Calcium 8.9 mg/dL (8.4-10.2); Carbon Dioxide 27 mmol/L (22-29); Chloride 89 mmol/L (96-108); Creatinine Clr Calc Pharmacy 55.2; Estimated Glomerular Filt Rate 51; Glucose Random 359 mg/dL (60-115); Magnesium 1.4 mg/dL (1.6-2.6); Potassium 3.6 mmol/L (3.3-5.1); Sodium 132 mmol/L (135-145); Total Protein 6.3 g/dL (6.5-8.0)
[2022-07-24 10:32] LABS: B Type Natriuretic Peptide 22 pg/mL (<100); Troponin-I High Sensitivity < 3.5 ng/L (<3.5-17.0)
[2022-07-24 10:36] LABS: COVID-19 Test Negative (Negative); IDNOW Serial# 16C4AD1C
[2022-07-24 11:04] VITALS: BP 119/64; PULSE 70; RESP 13; TEMP 36.6; O2SAT 92
[2022-07-24] MEDS: Magnesium Sulfate/D5W 1 GM/100 ML PIGGYBACK IV (11:26)
[2022-07-24] MEDS: LORazepam 1 MG TABLET 2 MG PO (12:30)
[2022-07-24 12:31] VITALS: BP 144/68; PULSE 73; RESP 13; O2SAT 95
[2022-07-24 12:47] LABS: Appearance Urine Clear; Color Urine Yellow; Glucose Urine UA 250 mg/dL (Negative); Leukocyte Esterase Urine Negative (Negative); Nitrite Urine Negative (Negative); Specific Gravity - Urine <= 1.005 (1.005-1.025); Urine Blood Negative (Negative); Urine Ketones Negative (Negative); Urine Protein Negative (Neg-Trace)
== END 2022-07-24 13:59 | disposition home or self-care (01) ==
PROVIDERS: Physician Assistant Medical; Emergency Provider Emergency Medicine Emergency Medical Services
DX: F41.9 Anxiety disorder, unspecified (principal); E83.42 Hypomagnesemia; R60.0 Localized edema; R10.9 Unspecified abdominal pain; Z20.822 Contact with and (suspected) exposure to COVID-19; E11.9 Type 2 diabetes mellitus without complications; I10 Essential (primary) hypertension; F17.210 Nicotine dependence, cigarettes, uncomplicated; Z79.84 Long term (current) use of oral hypoglycemic drugs
CPT/HCPCS: 71045; 74176; 80053; 81003; 83735; 83880; 84484; 85025; 87635; 93005; 96365; 99284; 99285; J3475

== ENCOUNTER 2022-07-30 17:57 | Emergency (ER) | payer OTHER, SELFPAY ==
--- NOTE | ~2022-07-30 | CT_ITS ---
EXAMINATION: CT SOFT TISSUE NECK WITH CONTRAST CLINICAL INFORMATION: Difficulty swallowing. COMPARISON: None available. TECHNIQUE: Multidetector helical imaging was performed in the axial plane following the administration of 60 mL of Omnipaque 350 intravenous contrast. Multiple axial reformats and coronal/sagittal reconstructions were created the technologist workstation for review. This CT examination was performed using dose optimization techniques as appropriate, variously including the following: *Automated exposure control. *Adjustment of mA and/or kV according to patient size (this includes techniques or standardized protocols for targeted exams where dose is matched to indication/reason for exam; i.e. extremities or head). *Use of iterative reconstruction technique. DLP: 709 mGy-cm FINDINGS: No significant cutaneous thickening or subcutaneous inflammation. No discrete fluid collection within the deep tissues of the neck. The premaxillary, retromaxillary, pterygopalatine fossa, orbital apical, parapharyngeal, and prelaryngeal adipose tissue is maintained. Normal appearance of the parotid, submandibular, and thyroid glands. There is a 1.1 cm lymph node in right level IIa (within normal limits). Otherwise, there are asymmetric shotty lymph nodes throughout the left side of neck that appear increased in number but largely remain subcentimeter in size. There is a 0.9 cm left level III lymph node with an eccentric hyperattenuating component. Scattered subcentimeter lymph nodes bilaterally, none of which are pathologically enlarged or abnormally enhancing. No demonstrated focal lesion or abnormal enhancement within the intrinsic tissues of the tongue or floor of mouth. Potential mild diffuse mucosal thickening of the pharynx/larynx without focal nodularity or overtly abnormal enhancement. Normal appearance of the hyoid bone, thyroid cartilage, or cartilaginous trachea. The airways remains widely patent. No radiopaque foreign bodies. The atlantooccipital and atlantoaxial articulations remain well aligned. Straightening of the normal cervical lordosis. There is anatomic alignment of the vertebral bodies and posterior elements. No evidence of acute fracture or subluxation of the cervical spine. The vertebral body heights are maintained. Advanced degenerative disc disease at C3-C4, C4-C5, and C6-C7. Moderate degenerative disc disease at all additional levels. Associated disc-osteophyte complex formation appears to cause mild spinal canal stenosis at C3-C4 and C5-C6. Facet and uncovertebral joint arthropathy leads to osseous encroachment on the neural foramina at C3-C4, C4-C5, and C6-C7. No evidence of epidural collection. There is no prevertebral soft tissue swelling. Normal opacification of the cervical arterial and venous structures. The visualized portion of the skull base is without significant abnormalities. The visualized paranasal sinuses are clear. The mastoid air cells and middle ear cavities are clear. Multifocal odontogenic enamel erosions and prominent periapical lucencies associated with the maxillary and mandibular teeth. CT Upper Chest: Nonspecific mildly prominent left upper paratracheal lymph node measuring up to 0.8 cm in short axis. Otherwise, the visualized lung apices and upper mediastinum are within normal limits. CT/CT soft tissue neck w IV con IMPRESSION: 1. Nonspecific asymmetric shotty lymph nodes throughout the left side of neck appear increased in number but largely remain subcentimeter in size. There is a single 0.9 cm left level III lymph node with an eccentric hyperattenuating component. There is also a nonspecific mildly prominent left upper paratracheal lymph node measuring up to 0.8 cm in short axis. 2. Potential mild diffuse mucosal thickening of the pharynx/larynx without focal nodularity or overtly abnormal enhancement. This appearance may be seen with nonspecific pharyngitis/laryngitis. 3. Prominent multifocal odontogenic disease. 4. No additional focal lesion, collection, pathologically enlarged lymphadenopathy, or abnormal enhancement within the soft tissues of the neck. 5. Moderate to advanced multilevel degenerative spondyloarthropathy of the cervical spine.
--- NOTE | ~2022-07-30 | CT_ITS ---
EXAMINATION: CT CHEST WITHOUT CONTRAST CLINICAL INFORMATION: Burning chest pain with difficulty swallowing COMPARISON: None TECHNIQUE: Multidetector volumetric CT imaging of the chest was done. Axial MIP volume rendering provided. Sagittal and coronal reformatted images were obtained. This CT examination was performed using dose optimization techniques as appropriate, variously including the following: *Automated exposure control *Adjustment of mA and/or kV according to patient size (this includes techniques or standardized protocols for targeted exams where dose is matched to indication/reason for exam; i.e. extremities or head) *Use of iterative reconstruction technique DLP: 388 mGy-cm FINDINGS: The thoracic inlet is within normal limits. The axillary regions are unremarkable. The partially visualized upper abdominal structures show full appearing adrenal glands. Mildly prominent lymph node in the gastrohepatic window 1 cm. This is near the GE junction Centrally there is aneurysmal change of the ascending aorta. 3.8 x 3.8 cm. No significant coronary calcifications are noted. The mediastinum is showing no bulky adenopathy. Some shotty nodes are noted. This is a noncontrast study but the hilar regions do not appear pathologically enlarged. The esophagus appears mildly thick-walled. This may be consistent with esophagitis. Most noted at the GE junction. Correlate with endoscopy Imaging of the lung ford. Right lung; There is no significant infiltrate or effusion. Some scattered areas of lung nodularity. Minimal size. Largest measuring 2 mm. Left lung; Again no significant infiltrate or effusion. There is a 5 mm nodule in the left lower lung. Image 324 of series 7 other minimal areas of lung nodularity. Some thickening in the major fissure is likely chronic. Review of the bone windows does not demonstrate evidence for bony lesion. Some degenerative changes are noted. CT/CT chest wo IV con IMPRESSION: No significant infiltrate or effusion. Some scattered areas of lung nodularity. Largest measures 5 mm in left lower lobe. Recommend low-dose noncontrast study in 6 months for continued evaluation There is some thickening involving the esophageal mucosa. This could represent esophagitis. This is most noted at the GE junction. Underlying lesion cannot be excluded. Consider endoscopy to further evaluate. There is a borderline node at the level of the GE junction as described. This could be reactive. Small metastatic focus cannot be excluded. Attention to follow-up. Aneurysmal change of the ascending aorta Fleischner guidelines were followed.
[2022-07-30 19:43] VITALS: BP 166/85; PULSE 80; RESP 16; TEMP 36.7; O2SAT 98; BMI 28.3
--- NOTE | 2022-07-30 20:33 | PC.NURSE ---
Care of patient assumed now in ED. Patient is alert, oriented x4, and overall well-appearing. She endorses a sore throat and painful swallowing, with nausea/vomiting/diarrhea x 3 weeks. She reports this is the 4th time in 3 weeks she's been seen in the ER. She went to [facility] earlier and was told to come to the ED for a blockage in my throat. She states she is able to drink water and eat food. Last time she was seen here she was prescribed ativan and told it's all in my head. it's insulting. Patient is speaking full, clear sentences, she is managing secretions well. Trace redness to back of throat, but no white patches or exudate. No oral or throat swelling noted. Room air saturations 96% and patient is breathing with ease. Patient states she's been swabbed for COVID twice and had a plethora of bloodwork, all negative.
[2022-07-30 20:36] VITALS: BP 171/78; PULSE 73; RESP 17; TEMP 36.2; O2SAT 96
[2022-07-30 20:44] LABS: MANUAL DIFF FLAG NO
--- NOTE | 2022-07-30 20:46 | ED_ITS ---
HPI - General Adult General Chief complaint: General Medical Stated complaint: Blockage in Esophagus Sent by Urgent Care Time Seen by Provider: 07/30/22 20:46 Source: patient Mode of arrival: ambulatory Limitations: no limitations History of Present Illness HPI narrative: 57-year-old female presents for evaluation of difficulty swallowing, change in voice, back pain, nausea, vomiting and diarrhea. Patient has been evaluated several times in the past few weeks at multiple ERs and urgent cares, and states that she feels that she has not been taken seriously. Onset (ago): month(s) Location: neck and abdomen Severity: moderate Severity scale (1-10): 5 Quality: aching Pain Consistency: constant Relieving factors: none Exacerbating factors: eating Associated symptoms: nausea/vomiting Treatments prior to arrival: none Related Data Home Medications Medication Instructions Recorded Confirmed albuterol sulfate 90 mcg/actuation 2 inh inhalation Q4H PRN Shortness 09/13/20 07/19/22 aerosol inhaler (ProAir HFA) Of Breath furosemide 20 mg tablet 20 mg PO DAILY@0730 PRN Weight Gain 09/13/20 07/19/22 metformin 1,000 mg tablet 1 tab PO BID 03/12/22 07/19/22 calcium carbonate 500 mg calcium 500 mg PO DAILY PRN Acid Reflux 07/19/22 07/19/22 (1,250 mg) chewable tablet ibuprofen 200 mg tablet 400 mg PO Q8H PRN Pain 07/19/22 07/19/22 tiotropium bromide 18 mcg capsule 1 cap inhalation DAILY 07/19/22 07/19/22 with inhalation device (Spiriva with HandiHaler) Previous Rx's Medication Instructions Recorded fluticasone furoate 100 1 inh inhalation DAILY #60 ea 03/13/22 mcg-vilanterol 25 mcg/dose inhalation powder (Breo Ellipta) azithromycin 250 mg tablet 250 mg PO DAILY 4 days #4 tabs 07/19/22 prednisone 20 mg tablet 20 mg PO DAILY #8 tabs 07/19/22 cephalexin 500 mg capsule 500 mg PO Q12H 7 days #14 caps 07/30/22 omeprazole 20 mg capsule,delayed 20 mg PO BID 30 days #60 caps 07/30/22 release prednisone 20 mg tablet 40 mg PO DAILY 6 days #12 tabs 07/30/22 Allergies Allergy/AdvReac Type Severity Reaction Status Date / Time No Known Allergies Allergy Verified 10/04/21 09:10 [No Known Allergies*] Review of Systems Review of Systems: Constitutional: No Fever, No Chills ENT/Mouth: No Ear Pain, No Hoarseness, No sore throat Eyes: No Eye Pain, No Swelling, No Redness, No Foreign Body Cardiovascular: No Chest Pain, No SOB Respiratory: No Cough, No Dyspnea Gastrointestinal: Positive esophageal discomfort, positive Nausea, positive Vomiting, positive Diarrhea, No abdominal Pain Genitourinary: No Dysuria, No Hematuria Musculoskeletal: No joint pain, No Myalgias, No Joint Swelling Skin: No Skin lacerations, No rash Neuro: No Weakness, No Numbness, No Paresthesias, No Loss of Consciousness, No Dizziness, No Headache Psych: Positive Anxiety, no Panic, No Depression Heme/Lymph: no easy bruising, no Lymphadenopathy Endocrine: No Polyuria, No Polydipsia Yes all other systems are reviewed and are negative PMFSH Past Medical History Attestation statement: The following information was validated with the patient. Source: old records reviewed Medical History Anxiety Bipolar disorder Chronic post-traumatic stress disorder (PTSD) COPD (chronic obstructive pulmonary disease) COPD (chronic obstructive pulmonary disease) Diabetes mellitus type 2 in obese Hypertension Family History Family History Other Family history non-contributory Social History Social History Household Members: Spouse and Children Housing: Apartment Alcohol intake: current Alcohol intake frequency: 3 or more drinks per day Patient Tobacco Use Status: Current everyday Tobacco user Tobacco use type: Cigarette Substance Use Type: Opiates Advance Directives: No Advance Directives Information Provided: No service: No Current occupational status: disabled Physical Exam ED Vital Signs: Vital Signs - 24 hr 07/30/22 19:43 07/30/22 20:36 07/30/22 23:12 Temperature 98.1 F 97.2 F Pulse Rate 80 73 72 Respiratory Rate 16 17 15 Blood Pressure 166/85 H 171/78 H 168/78 H Pulse Oximetry 98 96 96 Oxygen Delivery Method Room Air Room Air BMI result Body Mass Index 28.3 Appearance: Alert. Oriented X3. No acute distress. Eyes: Pupils equal, round and reactive to light. ENT: Pharynx normal. Neck: Normal inspection. Neck supple. CVS: Normal heart rate and rhythm. Pulses normal. Respiratory: No respiratory distress. Expiratory wheezing. Abdomen: Soft and nontender. Skin: Skin warm and dry. Normal skin color. Normal skin turgor. Extremities: No lower extremity edema. Gait well-balanced well coordinated. Neuro: No motor deficit. No sensory deficit. Cranial nerves 2-12 intact. Course Course Course Narrative: 57-year-old female presents with multiple complaints. States to have difficulty swallowing, feels like something stuck in her esophagus at all times, has had change in voice, abdominal and back pain, nausea, vomiting and diarrhea. She states that she has presented to several facilities over the past few months and has been treated for anxiety. Patient states that she feels like she is not being listened to. Patient does smoke, does drink alcohol on a daily basis. Does not report any symptoms of withdrawal when she stops drinking. Patient finished a course of antibiotics and prednisone about 4 days ago. Lung sounds have expiratory wheezing, with adventitious sounds to the trachea. Patient is afebrile, appears nontoxic, vital signs are stable and within normal limits with an elevated blood pressure. Will order CT scan soft tissue of the neck, and chest CT. Recent abdominal CT is negative for acute findings. 22:30 CT scan of the chest indicates esophageal thickening with possible nodule at the GE junction. Scattered lung nodules, and an ascending aorta aneurysm of 3.8 x 3.[address] scan of neck soft tissue. 23:40 CT scan of soft tissue neck indicates esophagitis and pharyngitis. Patient requires referral to Gastroenterology, pulmonology and primary care. Will give omeprazole 20 mg twice a day for esophagitis, prednisone for pharyngitis. While patient's white count is elevated at 16, I do not feel this elevated white count is infective, I feel that it is mostly reactive, due to prednisone. Urinalysis is positive for UTI. Will treat with cephalexin 500 mg b.i.d. as patient was recently on azithromycin.. Patient verbalized understanding of and agrees to plan of care discharge home. Verbalized understanding of signs and symptoms indicating need for emergent intervention. Understands the importance of follow-up due to high risk of malignancy. Medical Decision Making Lab Data Result diagrams: 07/30/22 20:38 07/30/22 20:38 Labs: Lab Results 07/30/22 07/30/22 Range/Units 20:38 20:38 WBC 16.3 H (4.8-10.8) X10*3/uL RBC 4.26 (4.20-5.50) X10*6/uL Hgb 13.7 (12.0-16.0) g/dl Hct 39.6 (37.0-47.0) % MCV 93.0 (80.0-98.0) fL MCH 32.2 (27.0-33.0) pg MCHC 34.6 (31.0-35.0) g/dl RDW 11.9 (11.0-16.0) % Plt Count 265 (160-400) X10*3/uL MPV 10.0 (9.4-12.3) fL Immature Gran % (Auto) 0.6 H (0.0-0.4) % Neut % (Auto) 68.9 (45-73) % Lymph % (Auto) 24.0 (20-40) % Beauregard % (Auto) 5.5 (2-11) % Eos % (Auto) 0.4 (0-4) % Baso % (Auto) 0.6 (0-2) % Lymph # (Auto) 3.9 (1.2-4.9) X10*3/uL Beauregard # (Auto) 0.9 (0.1-1.2) X10*3/uL Eos # (Auto) 0.1 (0.0-0.4) X10*3/uL Baso # (Auto) 0.1 (0.0-0.2) X10*3/uL Abs Immat Gran (auto) 0.10 H (0.00-0.03) X10*3/uL Absolute Neuts (auto) 11.2 H (2.0-8.3) x10*3/uL Absolute Nucleated RBC 0.000 (0.0-0.012) X10*3/uL Nucleated RBC % (auto) 0.0 (0.0-0.2) /100WBC Sodium 136 (135-145) mmol/L Potassium 3.9 (3.3-5.1) mmol/L Chloride 93 L (96-108) mmol/L Carbon Dioxide 28 (22-29) mmol/L Anion Gap 19 (12-20) BUN 10 (9-16) mg/dL Creatinine 0.85 (0.5-1.4) mg/dL Estim Creat Clear Calc 71.4 Estimated GFR > 60 Random Glucose 227 H (60-115) mg/dL Calcium 9.3 (8.4-10.2) mg/dL Total Bilirubin 0.8 (0.0-1.0) mg/dL AST 27 (5-31) U/L ALT 37 H (0-31) U/L Alkaline Phosphatase 58 (39-117) U/L Total Protein 6.4 L (6.5-8.0) g/dL Albumin 4.1 (3.5-5.0) g/dL Imaging Data CT scan - chest: Attestation: I personally reviewed and interpreted this imaging study as follows: Radiologist's impression: EXAMINATION: CT CHEST WITHOUT CONTRAST CLINICAL INFORMATION: Burning chest pain with difficulty swallowing? COMPARISON: None? TECHNIQUE: Multidetector volumetric CT imaging of the chest was done. Axial MIP volume rendering provided. Sagittal and coronal reformatted images were obtained.? This CT examination was performed using dose optimization techniques as appropriate, variously including the following: *Automated exposure control *Adjustment of mA and/or kV according to patient size (this includes techniques or standardized protocols for targeted exams where dose is matched to indication/reason for exam; i.e. extremities or head) *Use of iterative reconstruction technique DLP: 388 mGy-cm FINDINGS: The thoracic inlet is within normal limits. The axillary regions are unremarkable. The partially visualized upper abdominal structures show full appearing adrenal glands. Mildly prominent lymph node in the gastrohepatic window 1 cm. This is near the GE junction Centrally there is aneurysmal change of the ascending aorta. 3.8 x 3.8 cm. No significant coronary calcifications are noted. The mediastinum is showing no bulky adenopathy. Some shotty nodes are noted. This is a noncontrast study but the hilar regions do not appear pathologically enlarged. The esophagus appears mildly thick-walled. This may be consistent with esophagitis. Most noted at the GE junction. Correlate with endoscopy Imaging of the lung ford. Right lung; There is no significant infiltrate or effusion. Some scattered areas of lung nodularity. Minimal size. Largest measuring 2 mm. Left lung; Again no significant infiltrate or effusion. There is a 5 mm nodule in the left lower lung. Image 324 of series 7 other minimal areas of lung nodularity. Some thickening in the major fissure is likely chronic. Review of the bone windows does not demonstrate evidence for bony lesion. Some degenerative changes are noted. CT/CT chest wo IV con IMPRESSION: No significant infiltrate or effusion. Some scattered areas of lung nodularity. Largest measures 5 mm in left lower lobe. Recommend low-dose noncontrast study in 6 months for continued evaluation ? There is some thickening involving the esophageal mucosa. This could represent esophagitis. This is most noted at the GE junction. Underlying lesion cannot be excluded. Consider endoscopy to further evaluate. There is a borderline node at the level of the GE junction as described. This could be reactive. Small metastatic focus cannot be excluded. ? Attention to follow-up. ? Aneurysmal change of the ascending aorta ? ? ? Fleischner guidelines were followed. CT soft neck: Attestation: I personally reviewed and interpreted this imaging study as follows: Radiologist's impression: EXAMINATION: CT SOFT TISSUE NECK WITH CONTRAST CLINICAL INFORMATION: Difficulty swallowing.? COMPARISON: None available.? TECHNIQUE: Multidetector helical imaging was performed in the axial plane following the administration of 60 mL of Omnipaque 350 intravenous contrast. Multiple axial reformats and coronal/sagittal reconstructions were created the technologist workstation for review. This CT examination was performed using dose optimization techniques as appropriate, variously including the following: *Automated exposure control. *Adjustment of mA and/or kV according to patient size (this includes techniques or standardized protocols for targeted exams where dose is matched to indication/reason for exam; i.e. extremities or head). *Use of iterative reconstruction technique. DLP: 709 mGy-cm FINDINGS: No significant cutaneous thickening or subcutaneous inflammation. No discrete fluid collection within the deep tissues of the neck. The premaxillary, retromaxillary, pterygopalatine fossa, orbital apical, parapharyngeal, and prelaryngeal adipose tissue is maintained. Normal appearance of the parotid, submandibular, and thyroid glands. There is a 1.1 cm lymph node in right level IIa (within normal limits). Otherwise, there are asymmetric shotty lymph nodes throughout the left side of neck that appear increased in number but largely remain subcentimeter in size. There is a 0.9 cm left level III lymph node with an eccentric hyperattenuating component. Scattered subcentimeter lymph nodes bilaterally, none of which are pathologically enlarged or abnormally enhancing. No demonstrated focal lesion or abnormal enhancement within the intrinsic tissues of the tongue or floor of mouth. Potential mild diffuse mucosal thickening of the pharynx/larynx without focal nodularity or overtly abnormal enhancement. Normal appearance of the hyoid bone, thyroid cartilage, or cartilaginous trachea. The airways remains widely patent. No radiopaque foreign bodies. The atlantooccipital and atlantoaxial articulations remain well aligned. Straightening of the normal cervical lordosis. There is anatomic alignment of the vertebral bodies and posterior elements. No evidence of acute fracture or subluxation of the cervical spine. The vertebral body heights are maintained. Advanced degenerative disc disease at C3-C4, C4-C5, and C6-C7. Moderate degenerative disc disease at all additional levels. Associated disc-osteophyte complex formation appears to cause mild spinal canal stenosis at C3-C4 and C5-C6. Facet and uncovertebral joint arthropathy leads to osseous encroachment on the neural foramina at C3-C4, C4-C5, and C6-C7. No evidence of epidural collection. There is no prevertebral soft tissue swelling. Normal opacification of the cervical arterial and venous structures. The visualized portion of the skull base is without significant abnormalities. The visualized paranasal sinuses are clear. The mastoid air cells and middle ear cavities are clear. Multifocal odontogenic enamel erosions and prominent periapical lucencies associated with the maxillary and mandibular teeth. CT Upper Chest: Nonspecific mildly prominent left upper paratracheal lymph node measuring up to 0.8 cm in short axis. Otherwise, the visualized lung apices and upper mediastinum are within normal limits. CT/CT soft tissue neck w IV con IMPRESSION: 1. Nonspecific asymmetric shotty lymph nodes throughout the left side of neck appear increased in number but largely remain subcentimeter in size. There is a single 0.9 cm left level III lymph node with an eccentric hyperattenuating component. There is also a nonspecific mildly prominent left upper paratracheal lymph node measuring up to 0.8 cm in short axis. ? 2. Potential mild diffuse mucosal thickening of the pharynx/larynx without focal nodularity or overtly abnormal enhancement. This appearance may be seen with nonspecific pharyngitis/laryngitis. ? 3.? Prominent multifocal odontogenic disease. ? 4. No additional focal lesion, collection, pathologically enlarged lymphadenopathy, or abnormal enhancement within the soft tissues of the neck. ? 5. Moderate to advanced multilevel degenerative spondyloarthropathy of the cervical spine. Discharge Plan Discharge Clinical Impression: GERD with esophagitis, Pharyngitis, Lung nodules, Aneurysm of ascending aorta, Urinary tract infection Patient Disposition: Home, Self-Care Instructions: Urinary Tract Infection in Women (ED), Pharyngitis (ED), Gastr oesophageal Reflux Disease (ED), Thoracic Aortic Aneurysm (ED), Pulmonary Nodules (ED), Esophagitis (ED) Additional Instructions: You were evaluated for difficulty swallowing and multiple other complaints. CT scan of soft tissue neck and chest indicates multiple findings. One. You have pharyngitis, esophagitis, and a suspected esophageal nodule. You must follow-up with Gastroenterology for upper endoscopy and colonoscopy. You have not had a colonoscopy, colonoscopies are recommended at age 45 for cancer screening. You must have an upper endoscopy to rule out malignancy. Take omeprazole 20 mg twice a day for the next 30 days. Start taking this medication twice a day on 09/30/2022. Take prednisone 40 mg for the next 6 days. We gave your 1st dose in the emergency department. Take the next dose on 08/01/2022 in the morning. I have referred you to Dr. Rasheed, please call his office and requested appointment. Two. You have pulmonary nodules. 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 You have a high risk for cancer because you smoke cigarettes. I have referred you to Dr. Chew please call and request an appointment for evaluation. Three. We found an ascending aortic aneurysm measuring 3.8 cm x 3.8 cm. This needs to be followed up closely by your primary care physician. Please make an appointment for appropriate follow-up. Please call your primary care physician for evaluation. Four. Urinalysis is indicative of UTI. Please take Keflex 500 mg twice a day for the next 7 days. Drink plenty of fluids. Continue to take all your medications as directed. Thank you for choosing this emergency department for evaluation. Please follow-up with primary care physician as needed. Return to the emergency department for any new, concerning, or worsening symptoms. Prescriptions: New prednisone 20 mg tablet 40 mg PO DAILY 6 Days Qty: 12 0RF omeprazole 20 mg capsule,delayed release(DR/EC) 20 mg PO BID 30 Days Qty: 60 0RF cephalexin 500 mg capsule 500 mg PO Q12H 7 Days Qty: 14 0RF No Action furosemide 20 mg tablet 20 mg PO DAILY@0730 PRN (Reason: Weight Gain) albuterol sulfate [ProAir HFA] 90 mcg/actuation HFA aerosol inhaler 2 inh inhalation Q4H PRN (Reason: Shortness Of Breath) metformin 1,000 mg tablet 1 tab PO BID fluticasone furoate-vilanterol [Breo Ellipta] 100-25 mcg/dose blister with device 1 inh inhalation DAILY Qty: 60 0RF Spiriva with HandiHaler 18 mcg capsule, w/inhalation device 1 cap inhalation DAILY ibuprofen 200 mg Tablet 400 mg PO Q8H PRN (Reason: Pain) calcium carbonate 500 mg calcium (1,250 mg) Tablet,Chewable 500 mg PO DAILY PRN (Reason: Acid Reflux) prednisone 20 mg tablet 20 mg PO DAILY Qty: 8 0RF azithromycin 250 mg tablet 250 mg PO DAILY 4 Days Qty: 4 0RF Rx Instructions: start on day 2 of therapy Referrals: Hill Rasheed [Physician] - 3 days (Esophagitis, suspected esophageal nodule) Channing Chew MD [Physician] - 2 weeks (Pulmonary nodules) Renee Salas [Primary Care Provider] - 1 week (Primary care physician for aortic aneurysm)
[2022-07-30 20:51] LABS: Basophils Absolute Auto 0.1 X10*3/uL (0.0-0.2); Basophils Percent Auto 0.6 % (0-2); Eosinophils Absolute Auto 0.1 X10*3/uL (0.0-0.4); Eosinophils Percent Auto 0.4 % (0-4); Hematocrit 39.6 % (37.0-47.0); Hemoglobin 13.7 g/dl (12.0-16.0); Imm Gran Pct Auto 0.6 % (0.0-0.4); Lymphocytes Absolute Auto 3.9 X10*3/uL (1.2-4.9); Mean Corpuscular HGB Conc 34.6 g/dl (31.0-35.0); Mean Corpuscular Hemoglobin 32.2 pg (27.0-33.0); Monocytes Absolute Auto 0.9 X10*3/uL (0.1-1.2); Monocytes Percent Auto 5.5 % (2-11); Neutrophils Absolute Auto 11.2 x10*3/uL (2.0-8.3); Neutrophils Percent Auto 68.9 % (45-73); Platelet Count 265 X10*3/uL (160-400); Red Blood Count 4.26 X10*6/uL (4.20-5.50); Red Cell Distribution Width 11.9 % (11.0-16.0); White Blood Count 16.3 X10*3/uL (4.8-10.8)
[2022-07-30 21:10] LABS: Alanine Aminotransferase 37 U/L (0-31); Albumin Level 4.1 g/dL (3.5-5.0); Alkaline Phosphatase 58 U/L (39-117); Anion Gap 19 (12-20); Aspartate Amino Transferase 27 U/L (5-31); Bilirubin Total 0.8 mg/dL (0.0-1.0); Blood Urea Nitrogen 10 mg/dL (9-16); Calcium 9.3 mg/dL (8.4-10.2); Carbon Dioxide 28 mmol/L (22-29); Chloride 93 mmol/L (96-108); Creatinine Clr Calc Pharmacy 71.4; Estimated Glomerular Filt Rate > 60; Glucose Random 227 mg/dL (60-115); Potassium 3.9 mmol/L (3.3-5.1); Sodium 136 mmol/L (135-145); Total Protein 6.4 g/dL (6.5-8.0)
[2022-07-30] MEDS: iohexoL 350 MG/ML 100 ML INFUS..BTL IV (21:45)
[2022-07-30 23:12] VITALS: BP 168/78; PULSE 72; RESP 15; O2SAT 96
[2022-07-30 23:20] LABS: Appearance Urine Clear; Color Urine Yellow; Glucose Urine UA Negative (Negative); Leukocyte Esterase Urine Moderate (2+) (Negative); Nitrite Urine Negative (Negative); Specific Gravity - Urine >= 1.030 (1.005-1.025); UMIC TRIGGER UACC YES; Urine Blood Negative (Negative); Urine Ketones Trace mg/dL (Negative); Urine Protein Trace mg/dL (Neg-Trace)
[2022-07-30 23:25] LABS: Bacteria Urine None Seen (None Seen); Hyaline Casts Urine 0-2 /LPF (0-2); RBC Urine 0-2 /HPF (0-2); UACC Culture Trigger YES
[2022-07-30] MEDS: Omeprazole 20 MG CAPSULE.DR PO (23:44)
[2022-07-30] MEDS: predniSONE 20 MG TABLET 40 MG PO (23:44)
== END 2022-07-30 23:53 | disposition home or self-care (01) ==
PROVIDERS: Emergency Provider Internal Medicine
DX: K21.00 Gastro-esophageal reflux disease with esophagitis, without bleeding (principal); J02.9 Acute pharyngitis, unspecified; R13.10 Dysphagia, unspecified; M54.50 Low back pain, unspecified; N39.0 Urinary tract infection, site not specified; M54.2 Cervicalgia; M54.6 Pain in thoracic spine; F17.210 Nicotine dependence, cigarettes, uncomplicated; Z71.6 Tobacco abuse counseling; Z79.899 Other long term (current) drug therapy
CPT/HCPCS: 36415; 70491; 71250; 80053; 81001; 85025; 87086; 99283; 99284; Q9967